=== PATIENT | female | born 1970 | race Caucasian/White ===

== ENCOUNTER 2019-07-07 15:42 | Inpatient (IN) ==
[2019-07-07] MEDS ORDERED: ONDANSETRON INJ 2 MG/ML 2 ML VIAL IV STA (16:25)
[2019-07-07] MEDS ORDERED: MoRPHine SULFATE 4 MG/ML 1 ML CARP\\VIAL IV STA (16:25)
[2019-07-07] MEDS ORDERED: SODIUM CHLORIDE 0.9% 1000ML 1,000 ML IV ONE (16:25)
--- NOTE | 2019-07-07 16:48 | Emergency Department Note ---
History of Present Illness General Chief complaint: Kidney Stone Stated complaint: KIDNEY STONE History of Present Illness Maximum Pain Intensity: 4 This patient is a 49-year-old female who presents ambulatory to the emergency department for evaluation of left flank pain that started a few days ago. The pain is sharp, stabbing in nature. Worse with movement. She denies any dysuria or hematuria. No nausea or vomiting. No fever. The patient was seen at [facility] earlier today. A CAT scan was performed. She was diagnosed with an 8 mm kidney stone. She was given follow-up with a urologist in 3 days from now. The patient has been taking ketorolac, which temporarily helps with her symptoms. Home Medications Home Medications Medication Instructions Recorded Confirmed Type Abena (28) 1 tab PO DAILY 07/07/19 07/09/19 History acetaminophen [Tylenol Extra 1,000 mg PO TID #30 tab 07/09/19 Rx Strength] cephalexin [Keflex] 500 mg PO BID 7 Days #14 cap 07/09/19 Rx ondansetron 4 mg PO Q6H PRN #10 tab 07/09/19 Rx oxycodone 5 - 10 mg PO Q4H PRN #20 tab 07/09/19 Rx Allergies Allergy/AdvReac Type Severity Reaction Status Date / Time No Known Allergies Allergy Verified 07/10/19 11:08 Past Med/Surg History Medical History No pertinent past medical history [place] teeth extracted Surgical History S/P cystoscopy with ureteral stent placement Social History Preferred Language: Australian Communication Ability: Effective 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 Beliefs That Will Affect Care: None Current Living Situation: Spouse Other Information That Helps Us Care for You: No Feels Safe at Home: Yes Safety Concerns: Feels Safe At This Time Smoking Status: Never smoker Do You Dip or Chew Tobacco: No ; Second Hand Exposure: No ; Tobacco Cessation Education Requested by Patient: No Hx Alcohol Use: No Hx Substance Use: No Review of Systems A total of 10 systems reviewed and were otherwise negative Physical Exam Vital Signs Vital Signs - 24 hr 07/07/19 15:55 Temperature 36.7 C Temperature Source Oral Sepsis Recent Fever Within 48 Hours No Sepsis New/Unexplained Change in Mental Status No Sepsis Action Taken by Nursing No Action Required Pulse Rate 108 H Respiratory Rate 18 Respiratory Effort / Characteristics Non-Labored Spontaneous Respiratory Depth Normal Respiratory Pattern Regular Blood Pressure 147/87 H Blood Pressure Mean 107 Blood Pressure Position Sitting Pulse Oximetry 95 Oxygen Delivery Method Room Air Constitutional WD/WN, vitals as above Eyes EOM intact bilaterally ENMT external ear and nose normal, oropharynx normal Neck trachea midline Respiratory normal respiratory effort, lungs clear to auscultation Cardiovascular RRR, no murmur, no edema Gastrointestinal (Abdomen) Left-sided CVA tenderness noted. No guarding or rebound tenderness. Musculoskeletal no cyanosis or clubbing, extremities motor strength 5/5 Skin no rashes, warm and dry Neurologic Alert and oriented x3. No focal motor deficits. Psychiatric Acting appropriately Course Patient was seen and examined Vital signs including blood pressure were reviewed medications list was verified with patient Labs were obtained, and a saline lock was established The patient was ordered morphine, Zofran and fluids. Outpatient records were reviewed. The patient was reassessed and slightly more comfortable. We discussed the results. She voiced understanding. The case was discussed my supervising physician who is in agreement with my plan. She was ordered Rocephin IV. The case was discussed with the [facility] hospitalist group. They kindly agreed to evaluate the patient for further inpatient management. The patient was in agreement. Consultations Consultation #1: [facility] hospitalist group Administered Medications Discontinued Medications Acetaminophen (Tylenol) 1,000 mg PO TID [facility] Stop: 08/07/19 14:24 Last Admin: 07/09/19 12:33 Dose: 1,000 mg Documented by: [id number] Admin: 07/09/19 08:13 Dose: Not Given Documented by: [id number] Admin: 07/08/19 21:05 Dose: 1,000 mg Documented by: [id number] Admin: 07/08/19 14:56 Dose: 1,000 mg Documented by: [id number] Hydromorphone HCl (Dilaudid) 0.5 mg IV NOW STA Stop: 07/07/19 18:48 Last Admin: 07/07/19 18:53 Dose: 0.5 mg Documented by: [id number] Hydromorphone HCl (Dilaudid) 0.5 mg IV Q3H PRN PRN Reason: Severe Pain Stop: 07/21/19 23:44 Last Admin: 07/09/19 08:49 Dose: 0.5 mg Documented by: [id number] Admin: 07/09/19 04:14 Dose: 0.5 mg Documented by: [id number] Admin: 07/09/19 00:30 Dose: 0.5 mg Documented by: [id number] Admin: 07/08/19 21:01 Dose: 0.5 mg Documented by: [id number] Admin: 07/08/19 18:06 Dose: 0.5 mg Documented by: [id number] Admin: 07/08/19 12:45 Dose: 0.5 mg Documented by: [id number] Admin: 07/08/19 08:42 Dose: 0.5 mg Documented by: [id number] Admin: 07/08/19 03:56 Dose: 0.5 mg Documented by: [id number] Admin: 07/08/19 00:05 Dose: 0.5 mg Documented by: [id number] Sodium Chloride (Nss 1000ml) 1,000 mls @ 999 mls/hr IV .Q1H1M ONE Stop: 07/07/19 17:25 Last Infusion: 07/07/19 17:29 Dose: 0 mls/hr Documented by: [id number] Admin: 07/07/19 16:45 Dose: 999 mls/hr Documented by: [id number] Promethazine HCl (Phenergan) 25 mg in 51 mls @ 204 mls/hr IV NOW STA Stop: 07/07/19 17:52 Last Infusion: 07/07/19 18:32 Dose: 0 mls/hr Documented by: [id number] Admin: 07/07/19 17:57 Dose: 204 mls/hr Documented by: [id number] Ceftriaxone Sodium (Rocephin) 2,000 mg in 70 mls @ 140 mls/hr IV NOW STA Stop: 07/07/19 20:08 Last Infusion: 07/07/19 20:45 Dose: 0 mls/hr Documented by: [id number] Admin: 07/07/19 20:10 Dose: 140 mls/hr Documented by: [id number] Ceftriaxone Sodium 2,000 mg/ (Dextrose) 70 mls @ 100 mls/hr IV Q24H STEPHENIE; Protocol Stop: 07/16/19 20:41 Last Infusion: 07/08/19 22:17 Dose: 0 mls/hr Documented by: [id number] Admin: 07/08/19 21:15 Dose: 100 mls/hr Documented by: [id number] Sodium Chloride (Nss 1000ml) 1,000 mls @ 80 mls/hr IV .[id number] STEPHENIE Stop: 08/06/19 23:44 Last Infusion: 07/08/19 04:49 Dose: 0 mls/hr Documented by: [id number] Admin: 07/08/19 00:05 Dose: 80 mls/hr Documented by: [id number] Famotidine 20 mg/ Syringe 5 mls @ 2.5 mls/min IV Q12 STEPHENIE Stop: 08/06/19 23:44 Last Admin: 07/09/19 08:13 Dose: 2.5 mls/min Documented by: [id number] Admin: 07/08/19 21:15 Dose: 2.5 mls/min Documented by: [id number] Admin: 07/08/19 08:20 Dose: 2.5 mls/min Documented by: [id number] Admin: 07/08/19 00:12 Dose: 2.5 mls/min Documented by: [id number] Potassium Chloride/Sodium Chloride (Normal Saline W/20 Meq Kcl) 20 meq in 1,000 mls @ 100 mls/hr IV .Q10H STEPHENIE Stop: 08/07/19 04:29 Last Admin: 07/09/19 08:49 Dose: 100 mls/hr Documented by: [id number] Infusion: 07/09/19 08:49 Dose: 100 mls/hr Documented by: [id number] Admin: 07/08/19 23:19 Dose: 100 mls/hr Documented by: [id number] Infusion: 07/08/19 23:18 Dose: 100 mls/hr Documented by: [id number] Admin: 07/08/19 13:18 Dose: 100 mls/hr Documented by: [id number] Infusion: 07/08/19 13:18 Dose: 100 mls/hr Documented by: [id number] Admin: 07/08/19 04:48 Dose: 100 mls/hr Documented by: [id number] Miscellaneous (Order Awaiting Action) 1 ea N/A QS STEPHENIE Stop: 08/07/19 00:00 Last Admin: 07/08/19 16:24 Dose: Not Given Documented by: [id number] Admin: 07/08/19 07:22 Dose: Not Given Documented by: [id number] Admin: 07/08/19 00:12 Dose: Not Given Documented by: [id number] Morphine Sulfate (Morphine Sulfate) 4 mg IV NOW STA Stop: 07/07/19 16:26 Last Admin: 07/07/19 16:45 Dose: 4 mg Documented by: [id number] [place] ~ Non- Formulary Patient's Own Med 1 ea PO DAILY STEPHENIE Stop: 08/08/19 08:59 Last Admin: 07/09/19 08:13 Dose: Not Given Documented by: [id number] Ondansetron HCl (Zofran) 4 mg IV NOW STA Stop: 07/07/19 16:26 Last Admin: 07/07/19 16:45 Dose: 4 mg Documented by: [id number] Ondansetron HCl (Zofran) 4 mg IV Q6H PRN PRN Reason: Nausea Stop: 08/06/19 23:44 Last Admin: 07/09/19 04:16 Dose: 4 mg Documented by: [id number] Admin: 07/08/19 18:06 Dose: 4 mg Documented by: [id number] Admin: 07/08/19 12:47 Dose: 4 mg Documented by: [id number] Admin: 07/08/19 00:05 Dose: 4 mg Documented by: [id number] Ondansetron HCl (Zofran) 4 mg IV NOW STA Stop: 07/08/19 22:05 Last Admin: 07/08/19 22:16 Dose: 4 mg Documented by: [id number] Medical Decision Making Medical Records Attestation: I reviewed the patient's medical records. Home Medications Current Medication List: was personally reviewed by me Laboratory Data Attestation: I reviewed the patient's lab results. Result diagrams: 07/07/19 16:23 07/09/19 06:35 Lab Results 07/07/19 07/07/19 07/07/19 Range/Units 16:23 16:23 16:50 WBC 14.94 H (4.8-10.8) K/uL RBC 4.54 (4.2-5.4) M/uL Hgb 13.8 (12.0-16.0) g/dL Hct 39.3 (37-47) % MCV 86.6 (80-100) fL MCH 30.4 (25-34) pg MCHC 35.1 (32-36) g/dL RDW Std Deviation 43.0 (36.4-46.3) fL RDW Coeff of Mariann 13.5 (11.5-14.5) % Plt Count 310 (130-400) K/uL MPV 10.0 (7.4-10.4) fL Immature Gran % (Auto) 0.3 % Neut % (Auto) 82.4 % Lymph % (Auto) 11.3 % [place] % (Auto) 5.8 % Eos % (Auto) 0.1 % Baso % (Auto) 0.1 % Immature Gran # (Auto) 0.04 H (0.00-0.02) K/uL Neut # (Auto) 12.31 H (1.4-6.5) K/uL Lymph # (Auto) 1.69 (1.2-3.4) K/uL [place] # (Auto) 0.87 H (0.11-0.59) K/uL Eos # (Auto) 0.01 (0-0.5) K/uL Baso # (Auto) 0.02 (0-0.2) K/uL Sodium 140 (136-145) mmol/L Potassium 3.4 L (3.5-5.1) mmol/L Chloride 109 H (98-107) mmol/L Carbon Dioxide 24 (21-32) mmol/L Anion Gap 7.0 (3-11) BUN 18 (7-18) mg/dl Creatinine 1.05 (0.6-1.2) mg/dl Est Cr Clr Drug Dosing 76.1 ml/min Est GFR ( Amer) 71.7 Est GFR (Non-Af Amer) 61.9 BUN/Creatinine Ratio 16.9 (10-20) Glucose 141 H (70-99) mg/dl Calcium 9.3 (8.5-10.1) mg/dl Urine Color Dark Yellow Urine Appearance Turbid A (Clear) Urine pH 5.0 (4.5-7.5) Ur Specific [place] 1.026 (1.000-1.030) Urine Protein Negative (Negative) Urine Glucose (UA) Negative (Negative) Urine Ketones Trace H (Negative) Urine Blood 2+ H (Negative) Urine Nitrite Negative (Negative) Urine Bilirubin Negative (Negative) Urine Urobilinogen Negative (Negative) Ur Leukocyte Esterase 1+ H (Negative) Urine WBC (Auto) >30 H (0-5) /hpf Urine RBC (Auto) 5-10 H (0-4) /hpf U Hyaline Cast (Auto) 0 (0-5) /lpf U Epithel Cells (Auto) 20-30 H (0-5) /lpf Urine Bacteria (Auto) Negative (Negative) Urine Crystals Not Reportable Calcium Oxalate Crystal Present A (None Prsent) MDM Narrative Differential diagnosis: Ureteral stone, pyelonephritis, UTI, flank pain, muscular skeletal pain, among others This patient is a 49-year-old female presents the emergency department with flank pain. On exam, she was significantly uncomfortable. She was however not toxic in appearance. Afebrile. I reviewed her outpatient records. She has a very large proximal stone. Unfortunately, I cannot get the patient comfortable. The rest of her labs show a contaminated urine, however possible UTI. White count is 14,000. Renal function intact. Due to the urine and white count, we opted to catheter the patient with 1 dose of antibiotics. She will be evaluated by the hospitalist for possible inpatient management. Impression & Plan Calculus, ureteral Discharge Plan Visit Data *Final* Discharge Date/Time: 07/07/19 23:01 Chief Complaint: Kidney Stone Stated Complaint: KIDNEY STONE ED Provider: Rian Leach ED Midlevel Provider: Angela Flores Discharge Problem: Calculus, ureteral Patient Disposition: Admitted As Inpatient Condition: Fair Discharge Instructions Interventions: ED Discharge Assessment Last Done: 07/07/19 23:01
[2019-07-07 17:05] LABS: Basophils # (auto) 0.02 K/uL (0-0.2); Basophils % (auto) 0.1 %; Eosinophils # (auto) 0.01 K/uL (0-0.5); Eosinophils % (auto) 0.1 %; Hematocrit (blood only) 39.3 % (37-47); Hemoglobin 13.8 g/dL (12.0-16.0); Immature Granulocytes # (auto) 0.04 K/uL (0.00-0.02); Immature Granulocytes % (auto) 0.3 %; Lymphocytes # (auto) 1.69 K/uL (1.2-3.4); Lymphocytes % (auto) 11.3 %; Mean Corpuscular Hemoglobin 30.4 pg (25-34); Mean Corpuscular Hgb Conc 35.1 g/dL (32-36); Mean Corpuscular Volume 86.6 fL (80-100); Monocytes # (auto) 0.87 K/uL (0.11-0.59); Monocytes % (auto) 5.8 %; Neutrophils # (auto) 12.31 K/uL (1.4-6.5); Neutrophils % (auto) 82.4 %; Platelet Count 310 K/uL (130-400); RDW Coefficient of Variation 13.5 % (11.5-14.5); Red Blood Count 4.54 M/uL (4.2-5.4); White Blood Count 14.94 K/uL (4.8-10.8)
[2019-07-07 17:20] LABS: BUN Creatinine Ratio 16.9 (10-20); Calcium 9.3 mg/dl (8.5-10.1); Creatinine Clr Calc Pharmacy 76.1 ml/min; Est GFR (African American) 71.7; Est GFR (Non-African American) 61.9; Potassium 3.4 mmol/L (3.5-5.1)
[2019-07-07 17:21] LABS: Appearance Urine Turbid (Clear); Bacteria Urine Automated Negative (Negative); Bilirubin Urine Negative (Negative); Blood Urine 2+ (Negative); Color Urine Dark Yellow; Epithelial Cell Urine Auto 20-30 /lpf (0-5); Glucose Urine UA Negative (Negative); Ketones Urine Trace (Negative); Leukocyte Esterase Urine 1+ (Negative); Nitrite Urine Negative (Negative); Protein Urine Negative (Negative); Specific Gravity Urine 1.026 (1.000-1.030); Urobilinogen Urine Negative (Negative); WBC Urine Automated >30 /hpf (0-5)
[2019-07-07 17:37] LABS: Calcium Oxalate Crystals Urine Present (None Prsent); Cast Urine Automated 0 /lpf (0-5)
[2019-07-07] MEDS ORDERED: PROMETHAZINE 25 MG/51 ML BAG IV STA (17:38)
[2019-07-07] MEDS ORDERED: HYDROmorphone INJ 0.5 MG/0.5 ML SYR IV STA (18:47)
[2019-07-07] MEDS ORDERED: cefTRIAXone SODIUM 2,000 MG/70 ML BAG IV STA (19:39)
[2019-07-07] MEDS ORDERED: SODIUM CHLORIDE 0.9% 1000ML 1,000 ML IV SCH (23:45)
[2019-07-07] MEDS ORDERED: ACETAMINOPHEN 1,000 MG/100 ML VIAL IV PRN (23:45)
[2019-07-08] MEDS: ONDANSETRON INJ 2 MG/ML 2 ML VIAL IV PRN ×3 (00:05→18:06)
[2019-07-08] MEDS: HYDROmorphone INJ 0.5 MG/0.5 ML SYR IV PRN ×6 (00:05→21:01)
[2019-07-08] MEDS: FAMOTIDINE 20 MG in SYRINGE 3 ML IV SCH ×3 (00:12→21:15)
[2019-07-08] MEDS: BCP'S~ORDER AWAITING ACTION SCH ×3 (00:12→16:24)
--- NOTE | 2019-07-08 04:25 | History & Physical Report ---
Date of Service July 08, 2019 The patient was seen and examined on 07/07/2019 Assessment & Plan (1) Left ureteral stone: Left ureteral stone, 8 mm in diameter- NPO Urine culture and sensitivity. Ceftriaxone 2 g IV daily. Famotidine 20 mg IV every 12 hours. NSS + KCl 20 mEq at 100 mils per hour. Acetaminophen 1 g IV every 8 hours PRN mild pain or temperature Dilaudid 0.5 mg IV every 3 hours as needed severe pain Zofran 4 mg IV every 6 hours as needed. Consult urology Present on Admission?: Yes (2) Bladder spasm: Resume oxybutynin patient is no longer n.p.o. Present on Admission?: Yes (3) Insomnia: Resume melatonin when patient is no longer n.p.o. Present on Admission?: Yes (4) Uses contraception: Takes OCPs daily Present on Admission?: Yes History of Present Illness Chief Complaint: The patient presents to the emergency department with complaint of sharp, stabbing left flank pain that began a few days ago Primary Care Provider: Vic Ornelas The patient is a 49-year-old female with a past medical history including insomnia, urinary bladder spasm, arthralgias, and on BCPs, who presents to the emergency department with a few days of sharp stabbing left flank pain, that worsens with movement. She had been seen at [facility] emergency department earlier in the day, and had a CT scan performed which showed an 8 mm left ureteral kidney stone. She has been given a follow-up appointment with urologist in 3 days, however, her pain was not being managed by ketorolac or Vicodin, and she presented to the [facility] ED for further assessment. 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 Beliefs That Will Affect Care: None Current Living Situation: Spouse Other Information That Helps Us Care for You: No Feels Safe at Home: Yes Safety Concerns: Feels Safe At This Time Smoking Status: Never smoker Do You Dip or Chew Tobacco: No ; Second Hand Exposure: No ; Hx Alcohol Use: No Hx Substance Use: No Review of Systems Review of Systems: The patient denies chest pain, palpitations, shortness of breath, dyspnea on exertion, cough, lower extremity swelling, sore throat, fevers, chills, sweats, vomiting, diarrhea, constipation, Blood in urine or stool, dysuria, urinary frequency or urgency, lightheadedness, dizziness, headache, memory loss, loss of consciousness, rash, abnormal bruising or bleeding, imbalance, focal weakness, numbness or tingling in arms or legs, or night sweats. The review of systems is otherwise negative other than for that already noted above, and at least 10 systems have been reviewed. Physical Exam Physical Exam: The patient is awake, alert and oriented 3, well developed and well nourished, normocephalic and atraumatic, lying in bed and in no acute distress. HEENT--PERRL, EOMI, mucous membranes and oropharynx normal. Neck--No JVD. No bruits. Thyroid normal, trachea midline, no adenopathy. Heart--normal S1 and S2. No murmurs, rubs or gallops. Lungs--clear bilaterally, no respiratory distress, no accessory muscle use. Abdomen--normal bowel sounds and soft. Tender left side and flank. Nondistended. Extremities--no cyanosis or clubbing. No edema. Dermatologic--normal skin turgor, normal color, no abnormal lymph nodes, no rash. Neurologic--cranial nerves II through XII grossly intact. Rheumatologic--normal range of motion. Psychiatric--normal affect. Results & Data Vital Signs (Past 12 Hours) Vital Signs Temp Pulse Resp BP Pulse Ox 07/07/19 23:49 98.4 F 87 18 157/86 H 96 07/07/19 22:56 81 15 129/89 94 07/07/19 20:35 81 16 130/65 94 07/07/19 19:00 81 15 144/85 H 93 07/07/19 17:58 98.8 F 97 H 19 130/78 95 07/07/19 16:55 99 Laboratory Results Laboratory Results WBC 14.94 K/uL (4.8-10.8) H 07/07/19 16:23 RBC 4.54 M/uL (4.2-5.4) 07/07/19 16:23 Hgb 13.8 g/dL (12.0-16.0) 07/07/19 16:23 Hct 39.3 % (37-47) 07/07/19 16:23 MCV 86.6 fL (80-100) 07/07/19 16:23 MCH 30.4 pg (25-34) 07/07/19 16:23 MCHC 35.1 g/dL (32-36) 07/07/19 16:23 RDW Std Deviation 43.0 fL (36.4-46.3) 07/07/19 16:23 RDW Coeff of Mariann 13.5 % (11.5-14.5) 07/07/19 16:23 Plt Count 310 K/uL (130-400) 07/07/19 16:23 MPV 10.0 fL (7.4-10.4) 07/07/19 16:23 Immature Gran % (Auto) 0.3 % 07/07/19 16:23 Neut % (Auto) 82.4 % 07/07/19 16:23 Lymph % (Auto) 11.3 % 07/07/19 16:23 [place] % (Auto) 5.8 % 07/07/19 16:23 Eos % (Auto) 0.1 % 07/07/19 16:23 Baso % (Auto) 0.1 % 07/07/19 16:23 Immature Gran # (Auto) 0.04 K/uL (0.00-0.02) H 07/07/19 16:23 Neut # (Auto) 12.31 K/uL (1.4-6.5) H 07/07/19 16:23 Lymph # (Auto) 1.69 K/uL (1.2-3.4) 07/07/19 16:23 [place] # (Auto) 0.87 K/uL (0.11-0.59) H 07/07/19 16:23 Eos # (Auto) 0.01 K/uL (0-0.5) 07/07/19 16:23 Baso # (Auto) 0.02 K/uL (0-0.2) 07/07/19 16:23 Sodium 140 mmol/L (136-145) 07/07/19 16:23 Potassium 3.4 mmol/L (3.5-5.1) L 07/07/19 16:23 Chloride 109 mmol/L (98-107) H 07/07/19 16:23 Carbon Dioxide 24 mmol/L (21-32) 07/07/19 16:23 Anion Gap 7.0 (3-11) 07/07/19 16:23 BUN 18 mg/dl (7-18) 07/07/19 16:23 Creatinine 1.05 mg/dl (0.6-1.2) 07/07/19 16:23 Est Cr Clr Drug Dosing 76.1 ml/min 07/07/19 16:23 Est GFR ( Amer) 71.7 07/07/19 16:23 Est GFR (Non-Af Amer) 61.9 07/07/19 16:23 BUN/Creatinine Ratio 16.9 (10-20) 07/07/19 16:23 Glucose 141 mg/dl (70-99) H 07/07/19 16:23 Calcium 9.3 mg/dl (8.5-10.1) 07/07/19 16:23 Urine Color Dark Yellow 07/07/19 16:50 Urine Appearance Turbid (Clear) A 07/07/19 16:50 Urine pH 5.0 (4.5-7.5) 07/07/19 16:50 Ur Specific [place] 1.026 (1.000-1.030) 07/07/19 16:50 Urine Protein Negative (Negative) 07/07/19 16:50 Urine Glucose (UA) Negative (Negative) 07/07/19 16:50 Urine Ketones Trace (Negative) H 07/07/19 16:50 Urine Blood 2+ (Negative) H 07/07/19 16:50 Urine Nitrite Negative (Negative) 07/07/19 16:50 Urine Bilirubin Negative (Negative) 07/07/19 16:50 Urine Urobilinogen Negative (Negative) 07/07/19 16:50 Ur Leukocyte Esterase 1+ (Negative) H 07/07/19 16:50 Urine WBC (Auto) >30 /hpf (0-5) H 07/07/19 16:50 Urine RBC (Auto) 5-10 /hpf (0-4) H 07/07/19 16:50 U Hyaline Cast (Auto) 0 /lpf (0-5) 07/07/19 16:50 U Epithel Cells (Auto) 20-30 /lpf (0-5) H 07/07/19 16:50 Urine Bacteria (Auto) Negative (Negative) 07/07/19 16:50 Urine Crystals Not Reportable 07/07/19 16:50 Calcium Oxalate Crystal Present (None Prsent) A 07/07/19 16:50 Code Status & VTE Plan Code Status Full code VTE Prophylaxis Plan VTE Prophylaxis will be ordered: Yes PG Care Time/CCT Total # of Minutes Spent Total Time Spent with Patient: Total time spent is greater than 50% in coordination of care (as documented) at patient's floor/unit and/or counseling patient:
[2019-07-08] MEDS: NSS + 20MEQ KCL 20 MEQ/1,000 ML BAG IV SCH ×3 (04:48→23:19)
--- NOTE | 2019-07-08 09:18 | XRay Report ---
KUB CLINICAL HISTORY: Ureteral stone. COMPARISON STUDY: CT of the abdomen and pelvis December 18, 2012. KUB December 25, 2012. FINDINGS: A few suspected left renal calculi measure up to 6 mm. Pelvic calcifications are unchanged. These represent phleboliths. No ureteral calculi are identified. There is no evidence for a bowel ob struction. Bubbly foci of gas within the left upper quadrant are unchanged since prior exams. This garza ggests pneumatosis cystoides intestinalis. Right renal shadow is partially obscured by stool. IMPRESSION: 1. Left-sided nephrolithiasis. Right renal shadow partially obscured by stool. 2. No ureteral calculi identified. Electronically signed by: Abimael Johnson M.D. 07/08/2019 9:17 AM
[2019-07-08 10:12] LABS: BUN Creatinine Ratio 14.8 (10-20); Calcium 9.2 mg/dl (8.5-10.1); Creatinine Clr Calc Pharmacy 66.1 ml/min; Est GFR (African American) 60.4; Est GFR (Non-African American) 52.1; Potassium 3.7 mmol/L (3.5-5.1)
[2019-07-08 10:15] LABS: Estimated Average Glucose 126 mg/dl
--- NOTE | 2019-07-08 11:46 | Urology Consultation ---
Date of Consultation July 08, 2019 Assessment & Plan (1) Left ureteral stone: 8mm left ureteral stone, resulting renal colic. Stone not visible on KUB this AM. Will need to obtain CT images to confirm. Discussed options with patient, she strongly desires stone treatment as soon as possible due to pain and nausea. Feeling okay today with supportive medication. She is agreeable to continued observation today, NPO after midnight with the possibility of laser lithotripsy, stent placement tomorrow. If patient declines or develops a fever, please contact our service for urgent stent placement. Will continue to follow. History of Present Illness Attending Physician: Peter Castle History of Present Illness 49 YO female with ureteral stone, renal colic. Patient reports that she has spontaneously passed several stones in her lifetime. Has seen urologists in the region who have since retired. Has required surgical stone treatment once with stent placement, reports stent was very uncomfortable. Most recently, reports development of sharp left flank pain yesterday. She reported to [place] ER where CT scan (not available for me to review) reported 8mm ureteral stone. Patient was offered appointment at our outpatient clinic tomorrow, however reported to [facility] ER last night due to uncontrolled pain and vomiting. This morning is seen with spouse at bedside. Reports ongoing left flank pain. Somewhat controlled with supportive medication. No fevers/chills. Is experiencing continued nausea, no vomiting. Voiding spontaneously without pain or bother. No gross hematuria. 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 Physical Exam Physical Exam: NAD. +glasses. Resp effort normal. No JVD. Abd nondistended. A&Ox3, appropriate affect. Results & Data Vital Signs (Past 12 Hours) Vital Signs Temp Pulse Resp BP Pulse Ox 07/08/19 07:33 37.2 C 81 18 137/82 93 07/07/19 23:49 36.9 C 87 18 157/86 H 96 PG Care Time/CCT Total # of Minutes Spent Total Time Spent with Patient: Total time spent is greater than 50% in coordination of care (as documented) at patient's floor/unit and/or counseling patient:
--- NOTE | 2019-07-08 14:22 | Hospitalist Progress Note ---
Date of Service July 08, 2019 Assessment & Plan (1) Left ureteral stone: 8mm left-sided ureteral stone by report. cont pain control, IVF, anti-emetics. allow full liquid diet today then NPO after MN. appreciate urology consultation - laser litho, stent placement tomorrow by their team. (2) Prediabetes: new diagnosis. a1c 6%. pt made aware of dx. diet control. 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 (3) Obesity: with pre-DM needs to have weight loss efforts (4) DVT prophylaxis: SCDS; no chemical means in light of upcoming urological intervention bmp in am Subjective still with left back/flank pain, nausea, and lack of appetite. told her about hb a1c and that she has pre-DM -- voiced understanding. no vomiting. has had 7 prior stones with 1 requiring stent placement. Review of Systems Constitutional: no fever and no chills Respiratory: no cough and no dyspnea Cardiovascular: no chest pain Gastrointestinal: + abdominal pain and + nausea; no vomiting Physical Exam Constitutional: + obese; no acute distress and no altered mental status ENMT: external ear and nose normal, oropharynx normal Respiratory: normal respiratory effort, lungs clear to auscultation Cardiovascular: Rate/Rhythm: regular rate and regular rhythm Heart Sounds: normal S1 and normal S2; no murmur Vessels: posterior tibial pulses present and dorsalis pedis pulses present; no JVD Extremities: no edema Gastrointestinal (Abdomen): normal bowel sounds, soft, nontender, no hepatosplenomegaly Musculoskeletal: mild left flank pain to palpation Psychiatric: A+Ox3, euthymic affect Results & Data Vital Signs (Past 12 Hours) Vital Signs Temp Pulse Resp BP Pulse Ox 07/08/19 07:33 37.2 C 81 18 137/82 93 Laboratory Results Laboratory Results - last 24 hr 07/07/19 07/07/19 07/07/19 16:23 16:23 16:50 WBC 14.94 H RBC 4.54 Hgb 13.8 Hct 39.3 MCV 86.6 MCH 30.4 MCHC 35.1 RDW Std Deviation 43.0 RDW Coeff of Mariann 13.5 Plt Count 310 MPV 10.0 Immature Gran % (Auto) 0.3 Neut % (Auto) 82.4 Lymph % (Auto) 11.3 Swift % (Auto) 5.8 Eos % (Auto) 0.1 Baso % (Auto) 0.1 Immature Gran # (Auto) 0.04 H Neut # (Auto) 12.31 H Lymph # (Auto) 1.69 Swift # (Auto) 0.87 H Eos # (Auto) 0.01 Baso # (Auto) 0.02 Sodium 140 Potassium 3.4 L Chloride 109 H Carbon Dioxide 24 Anion Gap 7.0 BUN 18 Creatinine 1.05 Est Cr Clr Drug Dosing 76.1 Est GFR ( Amer) 71.7 Est GFR (Non-Af Amer) 61.9 BUN/Creatinine Ratio 16.9 Glucose 141 H Estimat Average Glucose Hemoglobin A1c Calcium 9.3 Urine Color Dark Yellow Urine Appearance Turbid A Urine pH 5.0 Ur Specific [place] 1.026 Urine Protein Negative Urine Glucose (UA) Negative Urine Ketones Trace H Urine Blood 2+ H Urine Nitrite Negative Urine Bilirubin Negative Urine Urobilinogen Negative Ur Leukocyte Esterase 1+ H Urine WBC (Auto) >30 H Urine RBC (Auto) 5-10 H U Hyaline Cast (Auto) 0 U Epithel Cells (Auto) 20-30 H Urine Bacteria (Auto) Negative Urine Crystals Not Reportable Calcium Oxalate Crystal Present A 07/08/19 07/08/19 09:38 09:38 WBC RBC Hgb Hct MCV MCH MCHC RDW Std Deviation RDW Coeff of Mariann Plt Count MPV Immature Gran % (Auto) Neut % (Auto) Lymph % (Auto) Swift % (Auto) Eos % (Auto) Baso % (Auto) Immature Gran # (Auto) Neut # (Auto) Lymph # (Auto) Swift # (Auto) Eos # (Auto) Baso # (Auto) Sodium 141 Potassium 3.7 Chloride 112 H Carbon Dioxide 23 Anion Gap 6.0 BUN 18 Creatinine 1.21 H Est Cr Clr Drug Dosing 66.1 Est GFR ( Amer) 60.4 Est GFR (Non-Af Amer) 52.1 BUN/Creatinine Ratio 14.8 Glucose 100 H Estimat Average Glucose 126 Hemoglobin A1c 6.0 H Calcium 9.2 Urine Color Urine Appearance Urine pH Ur Specific [place] Urine Protein Urine Glucose (UA) Urine Ketones Urine Blood Urine Nitrite Urine Bilirubin Urine Urobilinogen Ur Leukocyte Esterase Urine WBC (Auto) Urine RBC (Auto) U Hyaline Cast (Auto) U Epithel Cells (Auto) Urine Bacteria (Auto) Urine Crystals Calcium Oxalate Crystal PG Care Time/CCT Total # of Minutes Spent Total Time Spent with Patient: Total time spent is greater than 50% in coordination of care (as documented) at patient's floor/unit and/or counseling patient: (1) Obesity Obesity type: unspecified obesity type Obesity classification: adult class 2 (BMI 35 - 39.9) Serious obesity comorbidity presence: without serious comorbidity Body mass index: BMI 37.0-37.9 Qualified Code(s): E66.9 - Obesity, unspecified; Z68.37 - Body mass index (BMI) 37.0-37.9, adult
[2019-07-08] MEDS: ACETAMINOPHEN 500 MG TAB PO SCH ×2 (14:56→21:05)
[2019-07-08] MEDS ORDERED: cefTRIAXone SODIUM 2,000 MG in DEXTROSE 5% 50 ML IV SCH (20:00)
[2019-07-08] MEDS ORDERED: ONDANSETRON INJ 2 MG/ML 2 ML VIAL IV STA (22:04)
[2019-07-09] MEDS: HYDROmorphone INJ 0.5 MG/0.5 ML SYR IV PRN ×3 (00:30→08:49)
[2019-07-09] MEDS: ONDANSETRON INJ 2 MG/ML 2 ML VIAL IV PRN (04:16)
[2019-07-09 07:21] LABS: BUN Creatinine Ratio 12.4 (10-20); Creatinine Clr Calc Pharmacy 67.7 ml/min; Est GFR (African American) 62.3; Est GFR (Non-African American) 53.7
[2019-07-09] MEDS: FAMOTIDINE 20 MG in SYRINGE 3 ML IV SCH (08:13)
[2019-07-09] MEDS: ACETAMINOPHEN 500 MG TAB PO SCH ×2 (08:13→12:33)
[2019-07-09] MEDS: NSS + 20MEQ KCL 20 MEQ/1,000 ML BAG IV SCH (08:49)
[2019-07-09] MEDS ORDERED: CRYSELLE PO SCH (09:00)
--- NOTE | 2019-07-09 09:04 | XRay Report ---
XR chest 1V portable CLINICAL HISTORY: Preoperative chest COMPARISON STUDY: No previous studies for comparison. FINDINGS: The heart is normal in size. There is no failure. There is no lobar consolidation. There ar e no pleural effusions. There are subsegmental atelectatic changes at the left lung base.[ IMPRESSION: Left basilar subsegmental atelectasis. Otherwise unremarkable AP portable chest. Electronically signed by: Jered Ramirez M.D. 07/09/2019 9:03 AM
--- NOTE | 2019-07-09 09:09 | Urology Progress Note ---
Date of Service July 09, 2019 Assessment & Plan (1) Left ureteral stone: Left ureteral stone. Questionable visibility on KUB. Given patient's negative experience with stent in the past, would like to avoid. Will plan to repeat KUB this AM to assess for better visibility. Will also coordinate CXR, EKG for outpatient preop clearance. Patient would like to go home today with plans for outpatient surgical intervention tomorrow. She understands to report to our outpatient URO office at [address] [facility] immediately after discharge to sign paperwork. Procedure details, risks, alternatives discussed for both ESWL and left laser lithotripsy. Will tentatively plan for ESWL, if no visibility of stone on KUB will need laser lithotripsy. Subjective 49 YO female with left ureteral stone, renal colic. Left flank pain is persisting this morning. No fevers/chills. No nausea/vomiting. Voiding spontaneously. Review of Systems Review of Systems: Per HPI. Physical Exam Physical Exam: WN/WD NAD. Resp effort normal. No JVD. Abd nondistended. A&Ox3, appropriate affect. Results & Data Vital Signs (Past 12 Hours) Vital Signs Temp Pulse Pulse Resp BP Pulse Ox 07/09/19 08:14 36.9 C 78 18 140/90 95 07/08/19 23:22 37.0 C 71 16 118/77 92 PG Care Time/CCT Total # of Minutes Spent Total Time Spent with Patient: Total time spent is greater than 50% in coordination of care (as documented) at patient's floor/unit and/or counseling patient:
--- NOTE | 2019-07-09 10:00 | XRay Report ---
KUB HISTORY: ureteral stone COMPARISON: KUB 07/08/2019. Abdomen and pelvis CT 07/07/2019. FINDINGS: The bowel gas pattern is unremarkable. There are no dilated loops of small bowel to suggest an obstruction. The renal shadows are partially obscured by overlying bowel gas. There is 9 mm calc ification adjacent to the left L2 transverse process. This likely corresponds to the patient's known left ureteropelvic junction stone. Left-sided nephrolithiasis, unchanged.. Stable calcifications in t he deep pelvis consistent with phleboliths. No pneumoperitoneum or pneumatosis. IMPRESSION: 1. 9 mm stone within the expected location of the left ureteropelvic junction. This is unchanged in p osition. 2. Left-sided nephrolithiasis. Electronically signed by: Obinna Riojas M.D. 07/09/2019 9:59 AM
--- NOTE | 2019-07-09 10:02 | Communication Note ---
Date of Service: July 09, 2019 Repeat KUB today reveals good visibility of Right UPJ stone. Will plan for ESWL this Saturday. Please see progress note from today for details regarding plan of care.
--- NOTE | 2019-07-09 11:58 | Discharge Summary ---
Date of Service date of admission - July 08, 2019 date of discharge - July 09, 2019 Admission HPI Per Admitting Provider The patient is a 49-year-old female with a past medical history including insomnia, urinary bladder spasm, arthralgias, and prior kidney stones who presents to the emergency department with a few days of sharp stabbing left flank pain that worsens with movement. She had been seen at [facility] emergency department earlier in the day, and had a CT scan performed which showed an 8 mm left ureteral kidney stone. She had been given a follow-up appointment with urologist in 3 days, however, her pain was not controlled by ketorolac or Vicodin; thus she presented to the [facility] ED for further assessment. Principal Diagnosis left-sided obstructing ureteral kidney stone Discharge Exam Constitutional + obese; no acute distress and no altered mental status ENMT external ear and nose normal, oropharynx normal Respiratory normal respiratory effort, lungs clear to auscultation Cardiovascular Rate/Rhythm: regular rate and regular rhythm Heart Sounds: normal S1 and normal S2; no murmur Vessels: posterior tibial pulses present and dorsalis pedis pulses present; no JVD Extremities: no edema Gastrointestinal (Abdomen) normal bowel sounds, soft, nontender, no hepatosplenomegaly minimal flank tenderness LEFT Psychiatric A+Ox3, euthymic affect Discharge Data Allergies Allergy/AdvReac Type Severity Reaction Status Date / Time No Known Allergies Allergy Verified 07/10/19 11:08 Consultations [facility] - Katerin CORONADO crtt for pre-diabetes counseling Procedures Performed KUB xray: IMPRESSION: 1. 9 mm stone within the expected location of the left ureteropelvic junction. This is unchanged in position. 2. Left-sided nephrolithiasis. Hospital Course (1) Left ureteral stone: 8mm left-sided proximal ureteral stone with mild hydronephrosis. Following admission she was given copious IV hydration, placed on antibiotics, and given IV pain control. She was seen by urology and initially patient was desiring surgical intervention. On hospital day #2, however, patient decided to hold off on cystoscopy with stent placement. She reported a prior negative experience with stent placement. Since her pain was largely controlled, vitals were stable and afebrile, and in light of her prior experiences a decision was made with the urology team to def er on cystoscopy. Instead, she was allowed to discharge home and she will follow-up in 24 hours -- as an outpatient -- to undergo lithotripsy. Following discharge the patient was to report directly to the urology clinic in [place] to arrange the lithotripsy. The following were advised at discharge - * oxycodone prn pain * copious hydration * tylenol 1gm TID * zofran prn * keflex BID x 7 days for probable UTI (culture still pending) * light activities until the lithotripsy was complete (2) Prediabetes: new diagnosis. a1c 6%. pt made aware of diagnosis. diet control for now. crtt was consulted for counseling. (3) Obesity: with pre-DM needs to have weight loss efforts BMI 37 (4) UTI (urinary tract infection): suspected culture still pending keflex 500mg BID x 7 days at discharge Total Time Total Time Spent Total Time Spent (In Minutes): 35 Total Time Includes: Examination of the Patient, Discharge Planning and Me dication Reconciliation Discharge Plan Discharge Items Patient Disposition: Home - Self-Care Reason For Visit: left-sided kidney stone Discharge Diagnosis: left-sided kidney stone pre-diabetes -- newly diagnosed Activity: As commented below Activity Comment: no strenuous activity or driving until stone is gone & off narcotics Exercise/Sports: Wait until after follow-up appointment Driving/Machine Use: no driving until stone has been removed and off narcotic pain killers Non-emergency contact: Primary Care Provider and Urologist Call non-emergency contact if: you have any medication questions, your symptoms worsen, your pain is not controlled, your pain is worsening and you have a fever Follow-up/Referrals: Vic Ornelas [Primary Care Provider] - Katerin Hoyos CRNP [Nurse Practitioner] - (report to [facility] TODAY to coordinate lithotripsy) Diet: Carb Consistent or DM2 Addtl Attending Provider Instructions: You were treated for a left-sided kidney stone with IV fluids, pain medication, nausea medication, etc. You were seen by the [facility] team. They plan to perform lithotripsy on 07/10/2019, to break up the 9mm left- sided kidney stone. Your vital signs and labs were stable while here. We also found evidence of "pre-diabetes". Please follow-up with your family d octor for this. Recommendations - 1. no heavy exertional activity today or driving. 2. tylenol 1000mg three times daily for pain relief; again NO MORE than 3000mg in 24 hours 3. discontinue aspirin, motrin, ibuprofen, naprosyn, alleve use 4. oxycodone 5mg -- 1-2 tabs every 4 hours as needed for pain. oxycocone can impair your thinking (it is a narcotic pain killer) or make you sleepy. NO DRIVING and NO ALCOHOL while on narcotic pain killers. 5. the oxycodone can cause constipation. 6. constipation - * give yourself a dulcolax suppository x 1 today via your rectum * then start [id number] miralax +/- senakot for treatment of constipation 7. antibiotics - cephalexin 500mg twice daily for 7 days; know that antibiotics can interfere with effectiveness of control pills. YOU MUST use a second form of control if you are sexually active until your next menstrual cycle. 8. report to [facility] upon discharge to arrange the lithotripsy Report back to [facility] ER if -- * fevers over 100.5 degrees * shaking chills * severe back, flank or abdominal pain that is not controlled by your pain medication * you have large amounts of blood in your urine * uncontrolled nausea or vomiting * any other concerns Pending Studies at Discharge: No Stand-Alone Forms: My [facility], Opioid Pain Management, Smoking Cessation Medications and DC Order Prescriptions: New acetaminophen [Tylenol Extra Strength] 500 mg Tablet 1,000 mg PO TID Qty: 30 RF: 0 cephalexin [Keflex] 500 mg capsule 500 mg PO BID 7 Days Qty: 14 RF: 0 ondansetron 4 mg tablet,disintegrating 4 mg PO Q6H PRN (Reason: nausea and vomiting) Qty: 10 RF: 0 oxycodone 5 mg tablet 5 - 10 mg PO Q4H PRN (Reason: pain) Qty: 20 RF: 0 Continued Cryselle (28) 0.3-30 mg-mcg Tablet 1 tab PO DAILY RF: 0 Discontinued naproxen sodium [Aleve] 220 mg Tablet 220 mg PO BID RF: 0 Discharge Orders: Discharge Order (Routine); Ordered 07/09/19 Ordered By: Peter Boss/Other Patient Handouts: Prediabetes, Eating Out Tips Healthy, Eat Healthy Admission Data Admit Date/Time: 07/07/19 22:30 Attending Provider: Peter Castle Admit Provider: Pilo Watson Primary Care Provider: Vic Ornelas Other Providers: Pilo Watson ; Sushil Calabrese Other Interventions: Discharge Summary Assessment (RN) Last Done: 07/09/19 11:39 DC Date/Time DO NOT enter until pt leaves facility: 07/09/19 12:44
== END 2019-07-09 12:44 | disposition home or self-care (01) | DRG 690 ==
LOC: ED 15:42 → 3N 22:30 → SUATTDRO 22:30 → 3N 23:01

== ENCOUNTER 2024-07-30 11:25 | Inpatient (IN) ==
--- NOTE | 2024-07-30 12:07 | Emergency Department Note ---
Impression & Plan Sepsis, Dehydration, Nausea & vomiting ED Provider Note Provider: Rian Leach MD CHIEF COMPLAINT: Nausea vomiting, abdominal pain, diarrhea HISTORY OF PRESENT ILLNESS: Patient is a 54-year-old female past medical history significant for metastatic lung adenocarcinoma on Keytruda presenting here today referred from outpatient clinic. Patient has been sick over the past almost week. Seen initially and primary care at beginning of the week and started on some doxycycline. Has been having nausea and vomiting issues. Has been having intermittent fevers at home. Seen here yesterday and tested positive for entero-/rhinovirus. Was feeling bit better after some Zofran here but had Zofran at home and still having significant nausea symptoms and some nonbloody diarrhea. Diffuse abdominal pain reported. No significant shortness of breath reported however. Has noted a little bit of swelling in the hands and feet. No rashes reported. Saw primary care this morning given her tachycardia and pain complaints and here for further evaluation. Has had some liquid intake but no significant food intake. States not sure that the doxycycline has been staying down either. PAST MEDICAL HISTORY: As noted above MEDICATIONS: Reviewed home medications SOCIAL HISTORY: PHYSICAL EXAM: GENERAL: alert and oriented in no acute distress on stretcher, at bedside Head: normocephalic and atraumatic EYES: No injection, discharge or icterus. EOMI. NECK: Trachea midline. ENT: Mucous membranes pink and moist. LUNGS: Airway patent. No retractions. Breath sounds clear HEART: Regular tachycardic rate and rhythm. No chest wall tenderness ABDOMEN: Soft mild diffuse tenderness. No guarding. SKIN: Acyanotic, warm, dry, without rashes EXTREMITIES: Without swelling, tenderness or deformity NEUROLOGICAL: No focal deficits. No aphasia. No facial droop or slurred speech. Ambulatory. EK bpm sinus tachycardia. No PVC or PAC. No acute ST segment elevation or depression with QTc of 448. CONTINUOUS CARDIAC MONITORING: was ordered and showed a heart rate of bpm in sinus tachycardia Patient's laboratory studies and imaging reviewed. Differential includes Infection, sepsis, dehydration, metabolic abnormality, hypo/hyperglycemia, electrolyte disturbance, colitis, diverticulitis, pancreatitis, obstruction, volvulus, cholecystitis, appendicitis, anemia, hypoxia, cardiac sources, neurologic, as well as other pathologies. IMPRESSION/MEDICAL DECISION MAKING: Patient on Keytruda history of lung cancer here with predominantly GI related symptoms over the last several days. Has been on doxycycline recently unsure if this is contributing or not. Evaluate here today test positive for enterorhinovirus. Blood work reviewed. Not keeping much down at home referred from the office outpatient this morning. Patient is tachycardic upon arrival. Afebrile but borderline blood pressures. Not hypoxic denies significant shortness of breath. Some diffuse abdominal pain reported with some diarrhea nonbloody in nature. 2 L IV fluid ordered as she is meeting sepsis criteria. Compared to yesterday blood work does show evidence of increasing leukocytosis to 16 and an elevated lactate today of 3.1. Some Zofran given for nausea so she tolerated abdominal and chest CT to look for abnormality. Will exclude PE with a CT of the chest in addition to the abdominal CT. Again increasing leukocytosis 16 today. Not anemic. Normal platelet count. Procalcitonin elevated at 0.55 as well as again the additional lactate for she she is eating 130 mL/kg of ideal body weight for fluid resuscitation. Will empirically cover with cefepime for broad-spectrum coverage. Blood work today shows very mildly worsened hyponatremia of 132. Creatinine worsened today 1.3 question this is dehydrational given her decreased intake. Is having some low magnesium of 1.6 mildly again question losses. No CK elevation or troponin elevation. No evidence of significant transaminitis. Patient did vomit in CT. did receive some additional Reglan. CTA of the chest per radiology no obvious PE noted or consolidation. No change in the left apical mass from prior PET scan. CT abdomen pelvis without bowel obstruction or bowel wall thickening. Stable findings compared to July 02 with unchanged pneumatosis splenic flexure and hepatic steatosis. Blood pressure is improving with IV fluids here and she is feeling a little bit better. Although no obvious on percent clear source, will bring in for further care given the elevated infectious markers and findings of some dehydration. Patient and family updated at bedside. Agree with the plan to stay for further care. Hospitalist was contacted for admission and case discussed. DIAGNOSIS: Sepsis, dehydration, nausea and vomiting DISPOSITION: Hospitalist will evaluate Patient was agreeable with this plan. Past Med/Surg History Problem List (Updated 07/30/24 @ 13:51 by Obinna Murray PA-C) BRIGIDO (acute kidney injury) Lung cancer, primary, with metastasis from lung to other site Started chemo 08/07/21 Nausea & vomiting (Acute) Dehydration (Acute) Sepsis (Acute) Viral upper respiratory illness (Acute) COVID-19 (Acute) Metastatic adenocarcinoma (Chronic 07/11/21) Pneumatosis coli Lateral epicondylitis of elbow COVID-19 (Acute) Lung cancer Endometrial thickening on ultrasound Abnormal uterine bleeding (AUB) Bilateral kidney stones Fibroids Obese Cholelithiasis Obesity Medical History Endometrial polyp Lung cancer, primary, with metastasis from lung to other site Started chemo 08/07/21 Contact with and (suspected) exposure to covid-19 COVID positive family members exposure (07/2020) > personal symptoms at time of: Fatigue, sinus infection type symptoms, cough > was not tested/symptoms resolved Hx of pancreatitis Several years ago Kidney stone Hx Surgical History History of dilatation and curettage (08/2021) Hx laparoscopic cholecystectomy (07/11/21) Laparoscopic Cholecystectomy with Cholangiogram with Biopsy of the Omentum and Biopsy of Peritoneal Implant (07/11/21): Grade view 1, Cabezas #2, ETT 7.5 at [facility]. Patient reported dyspnea in recovery room post-operatively. She states improvement with incentive spirometry and possible oxygen supplementation. She states she was discharged home same day without issue. No mention of issues per anesthesia post-op progress note. Hx of colonoscopy Nausea and vomiting after administration of anesthetic agent mild PONV - patch "worked" History of lithotripsy x2 (12/2020, 01/2021) Left ESWL (01/27/21): LMA#4 at [facility] [place] (scope patch used) [place] teeth extracted S/P cystoscopy with ureteral stent placement Family History Grandmother (Maternal) Colorectal cancer Father Diabetes Mother Hypertension Brother Diabetes Grandmother (Paternal) Kidney malignancy Other No family history of adverse response to anesthesia Denies family history of Ovarian cancer Breast cancer Social History Smoking Status: Never smoker Tobacco Type: Cigarettes Second Hand Exposure: No; Do You Dip or Chew Tobacco: No; Hx Alcohol Use: Yes Alcohol type: wine Hx Substance Use: No Preferred Language: Faroese Communication Ability: Effective Visual Impairment: No Limitations Hearing Ability: Normal 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 Beliefs That Will Affect Care: None marital status: Current Living Situation: Spouse Current Living Situation Comment: [place] current occupational status: employed current occupation: [employer] How many Children do You have: 0 Other Information That Helps Us Care for You: No Feels Safe at Home: Yes Safety Concerns: Feels Safe At This Time Childhood Exposure to Second-Hand Smoke: No Diet: regular caffeine: Yes during the past year weight has: remained stable Dental Care, Regularly: Yes Assistive Devices: Glasses Allergies Allergies Allergy/AdvReac Type Severity Reaction Status Date / Time amoxicillin [From Augmentin] Allergy Severe Hives Unverified 07/22/24 13:40 clavulanic acid Allergy Severe Hives Unverified 07/22/24 13:40 [From Augmentin] codeine AdvReac Intermediate Eye Verified 07/22/24 13:40 problems (if in the sun) Home Meds Home Medications Medication Instructions Recorded Confirmed diphenhydramine HCl 50 mg capsule 50 mg PO HS 11/18/20 07/30/24 ([employer]) acetaminophen 500 mg capsule 1,000 mg PO Q6H PRN Pain 08/15/21 07/30/24 oxycodone 5 mg capsule 5 mg PO Q8H PRN Pain 08/15/21 07/30/24 pembrolizumab 50 mg intravenous 50 mg IV .[id number] 12/30/22 07/30/24 solution ascorbic acid (vitamin C) 250 mg 250 mg PO DAILY 01/07/24 07/30/24 tablet [id number] 5 mg-zeaxanth 1 cap PO DAILY 01/07/24 07/30/24 1 mg-bilberry 7.5 mg-herbal capsule (Macular Health Formula) zinc gluconate 30 mg tablet 30 mg PO DAILY 01/07/24 07/30/24 budesonide 90 mcg/actuation breath 2 inh inhalation BID PRN sob 07/29/24 07/30/24 activated powder inhaler (Pulmicort Flexhaler) doxycycline hyclate 100 mg tablet 100 mg PO BID 07/29/24 07/30/24 mometasone 100 mcg/actuation HFA 2 puff inhalation BID PRN sob 07/29/24 07/30/24 aerosol inhaler (Asmanex HFA) Previous Rx's Medication Instructions Recorded epinephrine 0.3 mg/0.3 mL 0.3 mg (0.3 mL) IM Q3H PRN 12/30/22 injection, auto-injector (EpiPen anaphylaxis #2 ea 2-Nando) ondansetron 4 mg disintegrating 4 mg PO Q6H PRN nausea and 01/17/23 tablet vomiting #14 tabs albuterol sulfate 90 mcg/actuation 2 puffs inhalation 6XD PRN 11/14/23 aerosol inhaler shortness of breath or wheezing #6.7 grams benzonatate 100 mg capsule 100 mg PO TID PRN cough #15 caps 11/14/23 ergocalciferol (vitamin D2) 1,250 1,250 mcg PO .weekly #14 caps 07/10/24 mcg (50,000 unit) capsule ondansetron 4 mg disintegrating 4 mg PO Q6H PRN nausea and 07/29/24 tablet vomiting #20 tabs Results & Data (ED) Vital Signs Vital Signs - 24 hr 07/30/24 11:29 07/30/24 11:49 07/30/24 11:57 Temperature 37.2 C 37.4 C Temperature Source Temporal Artery Scan Oral Pulse Rate 131 H 126 H Pulse Rate [Apical] 127 H Pulse Rate from SpO2 Sensor Respiratory Rate 18 16 Respiratory Effort / Characteristics Non-Labored Spontaneous Non-Labored Spontaneous Respiratory Depth Normal Normal Respiratory Pattern Regular Blood Pressure Blood Pressure [Right Arm] 95/72 L Blood Pressure Mean Blood Pressure Mean [Right Arm] 79 Blood Pressure Position [Right Arm] Pulse Oximetry 95 95 Oxygen Delivery Method Room Air Room Air Sepsis Recent Fever Within 48 Hours No Sepsis New/Unexplained Change in Mental Status N/A Sepsis Action Taken by Nursing No Action Required 07/30/24 11:57 07/30/24 12:01 07/30/24 12:01 Temperature Temperature Source Pulse Rate 126 H Pulse Rate [Apical] Pulse Rate from SpO2 Sensor 120 H Respiratory Rate 20 Respiratory Effort / Characteristics Respiratory Depth Respiratory Pattern Blood Pressure 96/70 L Blood Pressure [Right Arm] Blood Pressure Mean 78 94 94 Blood Pressure Mean [Right Arm] Blood Pressure Position [Right Arm] Pulse Oximetry 88 L Oxygen Delivery Method Sepsis Recent Fever Within 48 Hours Sepsis New/Unexplained Change in Mental Status Sepsis Action Taken by Nursing 07/30/24 12:03 07/30/24 12:15 07/30/24 12:20 Temperature Temperature Source Pulse Rate 127 H 118 H 103 H Pulse Rate [Apical] Pulse Rate from SpO2 Sensor 128 H Respiratory Rate 19 30 H 18 Respiratory Effort / Characteristics Respiratory Depth Respiratory Pattern Blood Pressure Blood Pressure [Right Arm] Blood Pressure Mean Blood Pressure Mean [Right Arm] Blood Pressure Position [Right Arm] Pulse Oximetry 93 96 Oxygen Delivery Method Room Air Sepsis Recent Fever Within 48 Hours Sepsis New/Unexplained Change in Mental Status Sepsis Action Taken by Nursing 07/30/24 12:21 07/30/24 12:21 07/30/24 12:21 Temperature Temperature Source Pulse Rate 101 H Pulse Rate [Apical] 115 H Pulse Rate from SpO2 Sensor 118 H Respiratory Rate 17 17 Respiratory Effort / Characteristics Non-Labored Respiratory Depth Normal Respiratory Pattern Regular Blood Pressure 88/76 L Blood Pressure [Right Arm] 88/76 L Blood Pressure Mean 85 Blood Pressure Mean [Right Arm] 80 Blood Pressure Position [Right Arm] Semi-fowlers Pulse Oximetry 98 98 Oxygen Delivery Method Room Air Sepsis Recent Fever Within 48 Hours Sepsis New/Unexplained Change in Mental Status Sepsis Action Taken by Nursing 07/30/24 12:21 07/30/24 12:47 07/30/24 12:47 Temperature Temperature Source Pulse Rate Pulse Rate [Apical] 111 H Pulse Rate from SpO2 Sensor Respiratory Rate 24 Respiratory Effort / Characteristics Non-Labored Spontaneous Respiratory Depth Normal Respiratory Pattern Blood Pressure 88/76 L 103/74 Blood Pressure [Right Arm] 103/74 Blood Pressure Mean 85 83 Blood Pressure Mean [Right Arm] 83 Blood Pressure Position [Right Arm] Pulse Oximetry 97 Oxygen Delivery Method Room Air Sepsis Recent Fever Within 48 Hours Sepsis New/Unexplained Change in Mental Status Sepsis Action Taken by Nursing 07/30/24 12:57 07/30/24 13:00 07/30/24 13:09 Temperature Temperature Source Pulse Rate 112 H 107 H Pulse Rate [Apical] Pulse Rate from SpO2 Sensor 112 H 106 H Respiratory Rate 20 18 Respiratory Effort / Characteristics Respiratory Depth Respiratory Pattern Blood Pressure 107/79 Blood Pressure [Right Arm] Blood Pressure Mean 94 Blood Pressure Mean [Right Arm] Blood Pressure Position [Right Arm] Pulse Oximetry 98 98 Oxygen Delivery Method Sepsis Recent Fever Within 48 Hours Sepsis New/Unexplained Change in Mental Status Sepsis Action Taken by Nursing 07/30/24 13:12 07/30/24 13:15 07/30/24 13:27 Temperature Temperature Source Pulse Rate 107 H 110 H Pulse Rate [Apical] Pulse Rate from SpO2 Sensor 107 H 110 H Respiratory Rate 22 29 H Respiratory Effort / Characteristics Respiratory Depth Respiratory Pattern Blood Pressure 83/69 L Blood Pressure [Right Arm] Blood Pressure Mean 75 Blood Pressure Mean [Right Arm] Blood Pressure Position [Right Arm] Pulse Oximetry 97 98 Oxygen Delivery Method Sepsis Recent Fever Within 48 Hours Sepsis New/Unexplained Change in Mental Status Sepsis Action Taken by Nursing 07/30/24 13:39 07/30/24 13:45 07/30/24 13:45 Temperature Temperature Source Pulse Rate 103 H 106 H Pulse Rate [Apical] Pulse Rate from SpO2 Sensor 104 H 105 H Respiratory Rate 24 24 Respiratory Effort / Characteristics Respiratory Depth Respiratory Pattern Blood Pressure 89/67 L Blood Pressure [Right Arm] Blood Pressure Mean 80 Blood Pressure Mean [Right Arm] Blood Pressure Position [Right Arm] Pulse Oximetry 94 96 Oxygen Delivery Method Sepsis Recent Fever Within 48 Hours Sepsis New/Unexplained Change in Mental Status Sepsis Action Taken by Nursing 07/30/24 14:00 07/30/24 14:00 07/30/24 14:09 Temperature Temperature Source Pulse Rate 108 H 107 H Pulse Rate [Apical] Pulse Rate from SpO2 Sensor 109 H 108 H Respiratory Rate 20 26 H Respiratory Effort / Characteristics Respiratory Depth Respiratory Pattern Blood Pressure 97/69 L Blood Pressure [Right Arm] Blood Pressure Mean 80 Blood Pressure Mean [Right Arm] Blood Pressure Position [Right Arm] Pulse Oximetry 96 96 Oxygen Delivery Method Sepsis Recent Fever Within 48 Hours Sepsis New/Unexplained Change in Mental Status Sepsis Action Taken by Nursing 07/30/24 14:16 07/30/24 14:16 07/30/24 14:16 Temperature Temperature Source Pulse Rate Pulse Rate [Apical] Pulse Rate from SpO2 Sensor Respiratory Rate Respiratory Effort / Characteristics Respiratory Depth Respiratory Pattern Blood Pressure Blood Pressure [Right Arm] Blood Pressure Mean 81 81 81 Blood Pressure Mean [Right Arm] Blood Pressure Position [Right Arm] Pulse Oximetry Oxygen Delivery Method Sepsis Recent Fever Within 48 Hours Sepsis New/Unexplained Change in Mental Status Sepsis Action Taken by Nursing 07/30/24 14:27 07/30/24 14:27 Temperature Temperature Source Pulse Rate Pulse Rate [Apical] Pulse Rate from SpO2 Sensor Respiratory Rate Respiratory Effort / Characteristics Respiratory Depth Respiratory Pattern Blood Pressure 91/75 L 91/75 L Blood Pressure [Right Arm] Blood Pressure Mean 81 81 Blood Pressure Mean [Right Arm] Blood Pressure Position [Right Arm] Pulse Oximetry Oxygen Delivery Method Sepsis Recent Fever Within 48 Hours Sepsis New/Unexplained Change in Mental Status Sepsis Action Taken by Nursing Laboratory Data 07/30/24 11:52 07/30/24 11:52 Lab Results 07/30/24 07/30/24 07/30/24 Range/Units 11:52 12:12 14:27 WBC 16.42 H (4.8-10.8) K/ul RBC 5.54 H (4.20-5.40) M/uL Hgb 16.2 H (12.0-16.0) g/dl Hct 47.5 H (37.0-47.0) % MCV 85.7 (80.0-100.0) fL MCH 29.2 (25.0-34.0) pg MCHC 34.1 (32.0-36.0) g/dL RDW Std Deviation 43.4 (36.4-46.3) fL RDW Coeff of Mariann 13.8 (11.5-14.5) % Plt Count 284 (130-400) K/uL MPV 10.6 (9.4-12.4) fL Immature Gran % (Auto) 1.3 % Neut % (Auto) 71.0 % Lymph % (Auto) 18.3 % [place] % (Auto) 5.9 % Eos % (Auto) 2.8 % Baso % (Auto) 0.7 % Neut # (Auto) 11.65 H (1.40-6.50) K/uL Lymph # (Auto) 3.01 (1.20-3.40) K/uL [place] # (Auto) 0.97 H (0.11-0.59) K/uL Eos # (Auto) 0.46 (0.00-0.50) K/uL Baso # (Auto) 0.12 (0.00-0.20) K/uL Immature Gran # (Auto) 0.21 H (0.01-0.20) K/uL PT 11.4 (9.0-12.0) Seconds INR 1.1 (0.9-1.1) Sodium 132 L (136-145) mmol/L Potassium 4.0 (3.5-5.1) mmol/L Chloride 101 (98-107) mmol/L Carbon Dioxide 21 (21-32) mmol/L Anion Gap 10 (3-11) BUN 27 H (6-23) mg/dl Creatinine 1.30 H D (0.6-1.2) mg/dl Est Cr Clr Drug Dosing 57.3 ml/min eGFR 48.56 BUN/Creatinine Ratio 20.8 H (10-20) Glucose 249 H (70-99(Fasting)) mg/dl Lactate 3.1 H* (0.4-2.0) mmol/L Calcium 9.7 (8.6-10.3) mg/dl Magnesium 1.6 L (1.7-2.4) mg/dl Total Bilirubin 0.4 (0.2-1.0) mg/dl AST 14 (13-39) U/L ALT 13 (7-52) U/L Alkaline Phosphatase 80 (34-104) U/L Total Creatine Kinase 24 L (26-192) U/L Troponin I High Sens 10.1 (0-14) pg/ml B-Natriuretic Peptide 16 (0-100) pg/ml Total Protein 6.4 (6.0-8.3) gm/dl Albumin 3.3 L (3.4-5.0) gm/dl Globulin 3.1 (2.5-4.0) gm/dl Albumin/Globulin Ratio 1.1 (0.9-2) Lipase 16 (11-82) U/L Procalcitonin 0.55 H (0-0.5) ng/ml TSH 3.340 (0.300-4.500) uIu/ml Urine Color Yellow Urine Appearance Clear (Clear) Urine pH 5.5 (4.5-7.5) Ur Specific [place] > 1.045 H (1.000-1.030) Urine Protein 1+ H (Negative) Urine Glucose (UA) Negative (Negative) Urine Ketones Negative (Negative) Urine Blood Negative (Negative) Urine Nitrite Negative (Negative) Urine Bilirubin Negative (Negative) Urine Urobilinogen Negative (Negative) Ur Leukocyte Esterase Negative (Negative) Urine WBC (Auto) 0-5 (0-5) /hpf Urine RBC (Auto) 3-5 H (0-2) /hpf U Hyaline Cast (Auto) 11-20 H (0-2) /lpf U Epithel Cells (Auto) 0-2 (0-2) /hpf Urine Bacteria (Auto) None Seen (None Seen) Hyaline Casts Present A (None Presnt) /lpf Administered Medications Lactated Ringer's (Lr) 1,000 mls @ 80 mls/hr IV .[id number] STEPHENIE Stop: 07/31/24 03:29 Last Admin: 07/30/24 15:39 Dose: 80 mls/hr Documented By: CAYETANO Discontinued Medications Sodium Chloride (Nss) 1,000 mls @ 999 mls/hr IV .Q1H1M ONE Stop: 07/30/24 12:56 Last Infusion: 07/30/24 13:02 Dose: Infused Documented By: Admin: 07/30/24 12:10 Dose: 999 mls/hr Documented By: CAYETANO Sodium Chloride (Nss) 1,000 mls @ 999 mls/hr IV .Q1H1M ONE Stop: 07/30/24 13:23 Last Infusion: 07/30/24 14:35 Dose: Infused Documented By: Admin: 07/30/24 13:02 Dose: 999 mls/hr Documented By: CAYETANO Cefepime HCl (Maxipime 2000mg) 2,000 mg in 20 mls @ 5 mls/min IV NOW STA Stop: 07/30/24 12:57 Last Admin: 07/30/24 13:14 Dose: 5 mls/min Documented By: CAYETANO Magnesium Sulfate/Dextrose (Magnesium Sulfate / D5w) 1 gm in 100 mls @ 100 mls/hr IV NOW STA Stop: 07/30/24 14:02 Last Infusion: 07/30/24 14:35 Dose: Infused Documented By: Admin: 07/30/24 13:27 Dose: 100 mls/hr Documented By: CAYETANO Prochlorperazine 5 mg/ Syringe 5 mls @ 5 mls/min IV ONE ONE Stop: 07/30/24 15:45 Last Admin: 07/30/24 16:12 Dose: 5 mls/min Documented By: CAYETANO Famotidine (Pepcid 20mg Iv Push) 20 mg in 5 mls @ 2.5 mls/min IV NOW STA Stop: 07/30/24 15:46 Last Admin: 07/30/24 15:56 Dose: 2.5 mls/min Documented By: CAYETANO Ioversol (Optiray 320 125ml) 119 ml IV ONCE ONE Stop: 07/30/24 12:33 Last Admin: 07/30/24 12:33 Dose: 119 ml Documented By: EVANGELINA Metoclopramide HCl (Metoclopramide Hcl Inj 5 Mg/Ml 2 Ml Vial) 5 mg IV ONE ONE Stop: 07/30/24 13:18 Last Admin: 07/30/24 13:19 Dose: 5 mg Documented By: CAYETANO Ondansetron HCl (Ondansetron Inj 2 Mg/Ml 2 Ml Vial) 4 mg IV NOW STA Stop: 07/30/24 12:05 Last Admin: 07/30/24 12:10 Dose: 4 mg Documented By: CAYETANO Imaging Data Radiologist's Impression: Abdomen/Pelvis CT 07/30/24 11:[address] WITH IV CONTRAST HISTORY: Acute chest and abdominal pain with tachycardia, nausea and vomiting. Reported history of metastatic lung cancer tachy, n/v, cancer TECHNIQUE: Multiaxial CT images of the abdomen and pelvis were performed following the IV administration of 119 cc of Optiray, A dose lowering technique was utilized adhering to the principles of ALARA. COMPARISON STUDY: CT chest of same day, CT abdomen and pelvis 02/15/2023, PET/CT 07/02/2024 FINDINGS: Chest CT is dictated separately. Mild left hemidiaphragmatic elevation. Thickening adjacent to the left hemidiaphragm redemonstrated. Likely benign pneumatosis of the splenic flexure is unchanged. No pneumoperitoneum. Unremarkable spleen, pancreas and adrenal glands. Cholecystectomy. Hepatic steatosis. Patency of the hepatic and portal veins. Cysts of the kidneys measure up to 1.2 cm on the right. No hydronephrosis. Decompressed urinary bladder with wall thickening. Fibroid uterus with 1.6 cm pedunculated versus subserosal lesion of the fundus. Subcentimeter retroperitoneal lymph nodes. No bowel obstruction or bowel wall thickening. Colonic diverticulosis. Right iliopsoas intramuscular lipoma. Noninflamed appendix. Small fat filled umbilical hernia with diastases of 2.6 cm. Degenerative changes of the spine. IMPRESSION: 1. No bowel obstruction or bowel wall thickening. 2. Stable findings compared to the 07/02/2024 PET/CT. 3. Unchanged benign pneumatosis of the splenic flexure. 4. Hepatic steatosis. 5. Please refer to the CT chest study of same day for additional findings. ACT 112: Negative or not required by law. The above report was generated using voice recognition software. It may contain grammatical, syntax or spelling errors. Electronically signed by: Kamran Collado M.D. 07/30/2024 12:53 PM Chest CTA 07/30/24 11:56 CT ANGIOGRAPHY OF THE CHEST, PULMONARY EMBOLUS PROTOCOL CLINICAL HISTORY: Vomiting and tachycardia. Lung cancer. Evaluate for pulmonary embolus. COMPARISON STUDY: Chest CT September 25, 2023. Chest radiograph performed earlier today. PET/CT July 02, 2024. TECHNIQUE: Following IV administration of 119 mL of Optiray, helical axial images of the chest were obtained utilizing the pulmonary embolus protocol. Maximal intensity projections and sagittal and coronal reformats were viewed on an independent 3D workstation. IV contrast was administered without complication. Automated exposure control was utilized for the study. A dose lowering technique was utilized adhering to the principles of ALARA. CT DOSE: 2575.92 mGy.cm FINDINGS: No enlarged axillary, mediastinal or hilar lymph nodes are present. Prominent bilateral axillary lymph nodes remain unchanged. The size of the heart is normal. There is no pericardial effusion. There is no thoracic aortic dissection. Pulmonary arterial opacification is suboptimal. No pulmonary emboli are identified although upper lobe pulmonary arteries are suboptimally assessed on this exam. No pneumothorax or effusion is present. There is no consolidation to suggest pneumonia. A 2.9 cm left apical opacity on image 190 of 235 is similar to PET/CT of July 02, 2024. A few small right lung nodules remain unchanged. No new pulmonary nodules are present. Abdomen and pelvis CT will be reported separately. Metastasis of the splenic flexure of the colon is again noted. There is hepatic steatosis. IMPRESSION: 1. No pulmonary emboli identified although exam moderately compromised by suboptimal opacification. 2. No consolidation to suggest pneumonia. 3. No change in a 2.9 cm left apical opacity since prior PET/CT. This favors postradiation change however can be assessed on follow-up exams to ensure expected evolution. ACT 112: Negative or not required by law. Electronically signed by: Abimael Johnson M.D. 07/30/2024 1:33 PM Discharge Plan Visit Data Chief Complaint: Illness Stated Complaint: UPSET STOMACH, FEVER, SWOLLEN HANDS/FEET ED Provider: Rian Leach Discharge Problem: Sepsis, Dehydration, Nausea & vomiting Patient Disposition: Being Evaluated by Hospitalist Discharge Instructions Interventions: ED Discharge Assessment Last Done: 07/30/24 17:06
[2024-07-30] MEDS: ONDANSETRON INJ 2 MG/ML 2 ML VIAL IV STA (12:10)
[2024-07-30] MEDS: SODIUM CHLORIDE 0.9% 1,000 ML IV ONE ×2 (12:10→13:02)
[2024-07-30 12:21] LABS: Basophils # (auto) 0.12 K/uL (0.00-0.20); Basophils % (auto) 0.7 %; Eosinophils # (auto) 0.46 K/uL (0.00-0.50); Eosinophils % (auto) 2.8 %; Hematocrit (blood only) 47.5 % (37.0-47.0); Hemoglobin 16.2 g/dl (12.0-16.0); Immature Granulocytes # (auto) 0.21 K/uL (0.01-0.20); Immature Granulocytes % (auto) 1.3 %; Lymphocytes # (auto) 3.01 K/uL (1.20-3.40); Lymphocytes % (auto) 18.3 %; Mean Corpuscular Hemoglobin 29.2 pg (25.0-34.0); Mean Corpuscular Hgb Conc 34.1 g/dL (32.0-36.0); Mean Corpuscular Volume 85.7 fL (80.0-100.0); Mean Platelet Volume 10.6 fL (9.4-12.4); Monocytes # (auto) 0.97 K/uL (0.11-0.59); Monocytes % (auto) 5.9 %; Neutrophils # (auto) 11.65 K/uL (1.40-6.50); Platelet Count 284 K/uL (130-400); RDW Coefficient of Variation 13.8 % (11.5-14.5); RDW Standard Deviation 43.4 fL (36.4-46.3); Red Blood Count 5.54 M/uL (4.20-5.40); White Blood Count 16.42 K/ul (4.8-10.8)
[2024-07-30] MEDS: OPTIRAY 320 125ml IV ONE (12:33)
[2024-07-30 12:46] LABS: INR 1.1 (0.9-1.1); Prothrombin Time 11.4 Seconds (9.0-12.0)
--- NOTE | 2024-07-30 12:54 | CT Scan Report ---
ABDOMEN AND PELVIS CT WITH IV CONTRAST HISTORY: Acute chest and abdominal pain with tachycardia, nausea and vomiting. Reported history of me tastatic lung cancer tachy, n/v, cancer TECHNIQUE: Multiaxial CT images of the abdomen and pelvis were performed following the IV administrat ion of 119 cc of Optiray, A dose lowering technique was utilized adhering to the principles of ALARA . COMPARISON STUDY: CT chest of same day, CT abdomen and pelvis 02/15/2023, PET/CT 07/02/2024 FINDINGS: Chest CT is dictated separately. Mild left hemidiaphragmatic elevation. Thickening adjacent to the left hemidiaphragm redemonstrated. Likely benign pneumatosis of the splenic flexure is unchan ged. No pneumoperitoneum. Unremarkable spleen, pancreas and adrenal glands. Cholecystectomy. Hepatic steatosis. Patency of the hepatic and portal veins. Cysts of the kidneys measure up to 1.2 cm on the right. No hydronephrosis. Decompressed urinary bladd er with wall thickening. Fibroid uterus with 1.6 cm pedunculated versus subserosal lesion of the fund us. Subcentimeter retroperitoneal lymph nodes. No bowel obstruction or bowel wall thickening. Colonic diverticulosis. Right iliopsoas intramuscular lipoma. Noninflamed appendix. Small fat filled umbilic al hernia with diastases of 2.6 cm. Degenerative changes of the spine. IMPRESSION: 1. No bowel obstruction or bowel wall thickening. 2. Stable findings compared to the 07/02/2024 PET/CT. 3. Unchanged benign pneumatosis of the splenic flexure. 4. Hepatic steatosis. 5. Please refer to the CT chest study of same day for additional findings. ACT 112: Negative or not required by law. The above report was generated using voice recognition software. It may contain grammatical, syntax o r spelling errors. Electronically signed by: Kamran Collado M.D. 07/30/2024 12:53 PM
[2024-07-30 12:55] LABS: Albumin Globulin Ratio 1.1 (0.9-2); Albumin Level 3.3 gm/dl (3.4-5.0); BUN Creatinine Ratio 20.8 (10-20); Bilirubin,Total 0.4 mg/dl (0.2-1.0); Calcium 9.7 mg/dl (8.6-10.3); Creatinine Clr Calc Pharmacy 57.3 ml/min; Globulin 3.1 gm/dl (2.5-4.0); Magnesium 1.6 mg/dl (1.7-2.4); Thyroid Stimulating Hormone 3.34 uIu/ml (0.300-4.500); Total Protein 6.4 gm/dl (6.0-8.3); Troponin I High Sensitivity 10.1 pg/ml (0-14)
[2024-07-30] MEDS: CEFEPIME 2000MG 2,000 MG/20 ML SYR IV STA (13:14)
[2024-07-30] MEDS: METOCLOPRAMIDE HCL INJ 5 MG/ML 2 ML VIAL IV ONE (13:19)
[2024-07-30] MEDS: MAGNESIUM SULFATE / D5W 1 GM/100 ML BAG IV STA (13:27)
--- NOTE | 2024-07-30 13:35 | CT Scan Report ---
CT ANGIOGRAPHY OF THE CHEST, PULMONARY EMBOLUS PROTOCOL CLINICAL HISTORY: Vomiting and tachycardia. Lung cancer. Evaluate for pulmonary embolus. COMPARISON STUDY: Chest CT September 25, 2023. Chest radiograph performed earlier today. PET/CT Octobe 2023. TECHNIQUE: Following IV administration of 119 mL of Optiray, helical axial images of the chest were o btained utilizing the pulmonary embolus protocol. Maximal intensity projections and sagittal and cor onal reformats were viewed on an independent 3D workstation. IV contrast was administered without co mplication. Automated exposure control was utilized for the study. A dose lowering technique was ut ilized adhering to the principles of ALARA. CT DOSE: 2575.92 mGy.cm FINDINGS: No enlarged axillary, mediastinal or hilar lymph nodes are present. Prominent bilateral ax illary lymph nodes remain unchanged. The size of the heart is normal. There is no pericardial effusio n. There is no thoracic aortic dissection. Pulmonary arterial opacification is suboptimal. No pulmona ry emboli are identified although upper lobe pulmonary arteries are suboptimally assessed on this exa m. No pneumothorax or effusion is present. There is no consolidation to suggest pneumonia. A 2.9 cm l eft apical opacity on image 190 of 235 is similar to PET/CT of July 02, 2024. A few small right gabriela ng nodules remain unchanged. No new pulmonary nodules are present. Abdomen and pelvis CT will be repo rted separately. Metastasis of the splenic flexure of the colon is again noted. There is hepatic stea tosis. IMPRESSION: 1. No pulmonary emboli identified although exam moderately compromised by suboptimal opacification. 2. No consolidation to suggest pneumonia. 3. No change in a 2.9 cm left apical opacity since prior PET/CT. This favors postradiation change how ever can be assessed on follow-up exams to ensure expected evolution. ACT 112: Negative or not required by law. Electronically signed by: Abimael Johnson M.D. 07/30/2024 1:33 PM
--- NOTE | 2024-07-30 13:50 | History & Physical Report ---
Date of Service July 30, 2024 Assessment & Plan (1) Sepsis: Plan: Initially, patient developed URI symptoms from 07/21 - 07/26; she then developed GI symptoms (N/V) after starting doxycycline on 07/27 Unclear source for her sepsis at time of admission, but potentially a developing pulmonary infection; tachycardic, tachypneic, and hypotensive (88/76) on arrival Lactate 3.1-->1.8 on arrival PCT mildly elevated at 0.55 Leukocytosis at 16.42 with neutrophil predominance; reported fevers at home NSS 2000 mg IV to meet ideal body weight (30 cc/kg) given in the ED Blood cultures drawn Sputum culture ordered, pending MRSA swab ordered, pending Patient is currently immunocompromised as she is receiving treatment for her metastatic lung cancer Cefepime 2000 mg IV q8h Doxycycline 100 mg IV q12h Acetaminophen as needed for pain/fever (2) Viral upper respiratory illness: Plan: Entero-/rhinovirus (+) on 07/29 Droplet isolation precautions Supportive care (3) BRIGIDO (acute kidney injury): Plan: Prerenal suspected in the setting of dehydration and GI losses BUN 27, creatinine 1.30 (baseline 0.70), EGFR 19.7 Avoid nephrotoxic agents for possible Continue IVF resuscitation with LR at 80mL/hr x 1 L (4) Lung cancer, primary, with metastasis from lung to other site: Plan: On Keytruda Follows with Dr. Le (5) Nausea & vomiting: Plan: IV antiemetics as needed Plan Disposition: Admit to PCU telemetry Full code Clear liquid diet and advance as tolerated VTE PPx: Heparin 5000u SQ q12h History of Present Illness Chief Complaint: Illness Primary Care Provider: DO Alva Dickens is a pleasant 54-year-old female with PMH of metastatic lung cancer (on Keytruda) and kidney stones. She originally presented to the ED on 07/29 for URI symptoms/fever x 8 days. Her symptoms started gradually on Tuesday 07/17, and included sore throat, low-grade fever, cough and congestion. Her fever then got worse over the weekend, and started getting up to 101.3 F. She went to see her PCP on Friday 07/27, and was prescribed doxycycline. However, shortly after starting the Doxy, she developed GI discomfort, fatigue, nausea, and vomiting. She also reports that she had diarrhea that started one day prior to starting doxycycline. Patient went to the emergency department on 07/29 and tested positive for entero-/rhinovirus on 07/29. She was sent home, but returned to the ED on 07/30. Patient is currently undergoing cancer treatment (Keytruda every 6 weeks; last on July 14) for her metastatic lung cancer. Initially, she had concern for her lungs as she often has a lung infection secondary to their cancer. Patient did not take her regular morning medicine today as she was unable to keep anything down. She did take Zofran x 2, which would help with her nausea for short period of time. No recent change in medications. She has been taking Tylenol at home for her fever. Her diarrhea has been loose stool but reports that it is formed. No blood in her stool. No sick contacts to her knowledge, but she does note her niece was coughing just prior to her initial sickness. Additionally, she notes vomiting can be induced by pressing on her stomach. Patient denies smoking, tobacco use, recent alcohol use. Patient is mildly tachycardic at 111 bpm at time of admission; vitals otherwise stable. ED course: Cefepime 2000 mg IV NSS 1000 mL IV x 2 Zofran 4 mg IV Metoclopramide 5 mg IV Magnesium sulfate 1 g IV ROS: Patient endorses fever (worse at night), chills, night-sweats, fatigue (feels like she is in "slow motion" at times), body aches, [place], abdominal cramping, N/V/D, and decreased urinary frequency. Patient denies dizziness, lightheadedness, syncope, chest pain, chest palpitations, pleuritic CP, SOB, cough, hematemesis, dysuria, burning with uri nation, or blood in the urine/stool. Allergies Allergy/AdvReac Type Severity Reaction Status Date / Time amoxicillin [From Augmentin] Allergy Severe Hives Unverified 07/22/24 13:40 clavulanic acid Allergy Severe Hives Unverified 07/22/24 13:40 [From Augmentin] codeine AdvReac Intermediate Eye Verified 07/22/24 13:40 problems (if in the sun) Home Medications Medication Instructions Recorded Confirmed Type diphenhydramine HCl 50 mg capsule 50 mg PO HS 11/18/20 07/30/24 History ([employer]) acetaminophen 500 mg capsule 1,000 mg PO Q6H PRN Pain 08/15/21 07/30/24 History oxycodone 5 mg capsule 5 mg PO Q8H PRN Pain 08/15/21 07/30/24 History epinephrine 0.3 mg/0.3 mL 0.3 mg (0.3 mL) IM Q3H PRN 12/30/22 07/30/24 Rx injection, auto-injector (EpiPen anaphylaxis #2 ea 2-Nando) pembrolizumab 50 mg intravenous 50 mg IV .q6wks 12/30/22 07/30/24 History solution ondansetron 4 mg disintegrating 4 mg PO Q6H PRN nausea and 01/17/23 07/30/24 Rx tablet vomiting #14 tabs albuterol sulfate 90 mcg/actuation 2 puffs inhalation 6XD PRN 11/14/23 07/30/24 Rx aerosol inhaler shortness of breath or wheezing #6.7 grams benzonatate 100 mg capsule 100 mg PO TID PRN cough #15 caps 11/14/23 07/30/24 Rx ascorbic acid (vitamin C) 250 mg 250 mg PO DAILY 01/07/24 07/30/24 History tablet ldeasurt-pcz-sbtxsk 5 mg-zeaxanth 1 cap PO DAILY 01/07/24 07/30/24 History 1 mg-bilberry 7.5 mg-herbal capsule (Macular Health Formula) zinc gluconate 30 mg tablet 30 mg PO DAILY 01/07/24 07/30/24 History ergocalciferol (vitamin D2) 1,250 1,250 mcg PO .weekly #14 caps 07/10/24 07/30/24 Rx mcg (50,000 unit) capsule budesonide 90 mcg/actuation breath 2 inh inhalation BID PRN sob 07/29/24 07/30/24 History activated powder inhaler (Pulmicort Flexhaler) doxycycline hyclate 100 mg tablet 100 mg PO BID 07/29/24 07/30/24 History mometasone 100 mcg/actuation HFA 2 puff inhalation BID PRN sob 07/29/24 07/30/24 History aerosol inhaler (Asmanex HFA) ondansetron 4 mg disintegrating 4 mg PO Q6H PRN nausea and 07/29/24 07/30/24 Rx tablet vomiting #20 tabs Past Med/Surg History Problem List (Updated 07/30/24 @ 13:51 by Obinna Murray PA-C) BRIGIDO (acute kidney injury) Lung cancer, primary, with metastasis from lung to other site Started chemo 08/07/21 Nausea & vomiting (Acute) Dehydration (Acute) Sepsis (Acute) Viral upper respiratory illness (Acute) COVID-19 (Acute) Metastatic adenocarcinoma (Chronic 07/11/21) Pneumatosis coli Lateral epicondylitis of elbow COVID-19 (Acute) Lung cancer Endometrial thickening on ultrasound Abnormal uterine bleeding (AUB) Bilateral kidney stones Fibroids Obese Cholelithiasis Obesity Medical History Endometrial polyp Lung cancer, primary, with metastasis from lung to other site Started chemo 08/07/21 Contact with and (suspected) exposure to covid-19 COVID positive family members exposure (07/2020) > personal symptoms at time of: Fatigue, sinus infection type symptoms, cough > was not tested/symptoms resolved Hx of pancreatitis Several years ago Kidney stone Hx Surgical History History of dilatation and curettage (08/2021) Hx laparoscopic cholecystectomy (07/11/21) Laparoscopic Cholecystectomy with Cholangiogram with Biopsy of the Omentum and Biopsy of Peritoneal Implant (07/11/21): Grade view 1, Cabezas #2, ETT 7.5 at [facility]. Patient reported dyspnea in recovery room post-operatively. She states improvement with incentive spirometry and possible oxygen supplementation. She states she was discharged home same day without issue. No mention of issues per anesthesia post-op progress note. Hx of colonoscopy Nausea and vomiting after administration of anesthetic agent mild PONV - patch "worked" History of lithotripsy x2 (12/2020, 01/2021) Left ESWL (01/27/21): [place]4 [place] [facility] [place] used[place] teeth extracted S/P cystoscopy with ureteral stent placement Family History Grandmother (Maternal) Colorectal cancer Father Diabetes Mother Hypertension Brother Diabetes Grandmother (Paternal) Kidney malignancy Other No family history of adverse response to anesthesia Denies family history of Ovarian cancer Breast cancer Social History Smoking Status: Never smoker Tobacco Type: Cigarettes Second Hand Exposure: Yes (FATHER SMOKED); Do You Dip or Chew Tobacco: No; Hx Alcohol Use: No Hx Substance Use: No Preferred Language: Gambian Communication Ability: Effective Visual Impairment: No Limitations Hearing Ability: Normal Horse Race Timer Required: No Beliefs That Will Affect Care: None marital status: Current Living Situation: Spouse Current Living Situation Comment: [place] current occupational status: employed current occupation: [employer] How many Children do You have: 0 Feels Safe at Home: Yes Childhood Exposure to Second-Hand Smoke: No Diet: regular caffeine: Yes during the past year weight has: remained stable Dental Care, Regularly: Yes Assistive Devices: Glasses Review of Systems Review of Systems: See HPI above Physical Exam Physical Exam: General: no acute distress; pleasant affect; non-toxic appearing; well- nourished; cooperative; SpO2 95% on RA HEENT: normocephalic, atraumatic; no scleral icterus; PERRLA w/ EOMs intact; vision and hearing grossly intact Neck: supple; no lymphadenopathy; trachea midline Skin: warm, dry without signs of tenting; no cyanosis; no rashes, bruising, lesions, or erythema noted CV: chest wall NTP; RR, tachycardic around 113 bpm; S1/S2 normal; no murmurs/rubs/gallops; pulses intact and symmetric at radial, DP, and PT Lungs: no acute respiratory distress; symmetrical chest wall expansion; clear breath sounds across all lung quiroz w/o adventitious sounds; no wheezing ABD: Soft, NTP in all 4 quadrants; BS present; no rebound/guarding; no distention; no rashes or bruising noted on the abdomen or flanks bilaterally MSK: no tics or fasciculations; +1 pitting edema noted around the ankles bilaterally, nonerythematous Neuro: A&Ox3; normal mood and affect; fluent speech; no focal deficits; sensation grossly intact in the LEs b/l Results & Data Results & Data Vital Signs (Past 12 Hours) Vital Signs Temp Pulse Pulse Resp BP BP Pulse Ox 07/30/24 12:47 111 H 24 103/74 97 07/30/24 12:21 88/76 L 07/30/24 12:21 101 H 17 98 07/30/24 12:21 115 H 17 88/76 L 98 07/30/24 12:20 103 H 18 96 07/30/24 12:15 118 H 30 H 07/30/24 12:03 127 H 19 93 07/30/24 11:57 126 H 20 96/70 L 88 L 07/30/24 11:57 126 H 07/30/24 11:49 37.4 C 127 H 16 95/72 L 95 07/30/24 11:29 37.2 C 131 H 18 95 O2 Del Method 07/30/24 12:47 Room Air 07/30/24 12:21 07/30/24 12:21 07/30/24 12:21 Room Air 07/30/24 12:20 Room Air 07/30/24 12:15 07/30/24 12:03 07/30/24 11:57 07/30/24 11:57 07/30/24 11:49 Room Air 07/30/24 11:29 Room Air Laboratory Results Abnormal lab results 07/30/24 Range/Units 11:52 WBC 16.42 H (4.8-10.8) K/ul RBC 5.54 H (4.20-5.40) M/uL Hgb 16.2 H (12.0-16.0) g/dl Hct 47.5 H (37.0-47.0) % Neut # (Auto) 11.65 H (1.40-6.50) K/uL [place] # (Auto) 0.97 H (0.11-0.59) K/uL Immature Gran # (Auto) 0.21 H (0.01-0.20) K/uL Sodium 132 L (136-145) mmol/L BUN 27 H (6-23) mg/dl Creatinine 1.30 H D (0.6-1.2) mg/dl BUN/Creatinine Ratio 20.8 H (10-20) Glucose 249 H (70-99(Fasting)) mg/dl Lactate 3.1 H* (0.4-2.0) mmol/L Magnesium 1.6 L (1.7-2.4) mg/dl Total Creatine Kinase 24 L (26-192) U/L Albumin 3.3 L (3.4-5.0) gm/dl Procalcitonin 0.55 H (0-0.5) ng/ml Diagnostic Findings Abdomen/Pelvis CT 07/30/24 11:[address] WITH IV CONTRAST HISTORY: Acute chest and abdominal pain with tachycardia, nausea and vomiting. Reported history of metastatic lung cancer tachy, n/v, cancer TECHNIQUE: Multiaxial CT images of the abdomen and pelvis were performed following the IV administration of 119 cc of Optiray, A dose lowering technique was utilized adhering to the principles of ALARA. COMPARISON STUDY: CT chest of same day, CT abdomen and pelvis 02/15/2023, PET/CT 07/02/2024 FINDINGS: Chest CT is dictated separately. Mild left hemidiaphragmatic elevation. Thickening adjacent to the left hemidiaphragm redemonstrated. Likely benign pneumatosis of the splenic flexure is unchanged. No pneumoperitoneum. Unremarkable spleen, pancreas and adrenal glands. Cholecystectomy. Hepatic steat osis. Patency of the hepatic and portal veins. Cysts of the kidneys measure up to 1.2 cm on the right. No hydronephrosis. Decompressed urinary bladder with wall thickening. Fibroid uterus with 1.6 cm pedunculated versus subserosal lesion of the fundus. Subcentimeter retroperitoneal lymph nodes. No bowel obstruction or bowel wall thickening. Colonic diverticulosis. Right iliopsoas intramuscular lipoma. Noninflamed appendix. Small fat filled umbilical hernia with diastases of 2.6 cm. Degenerative changes of the spine. IMPRESSION: 1. No bowel obstruction or bowel wall thickening. 2. Stable findings compared to the 07/02/2024 PET/CT. 3. Unchanged benign pneumatosis of the splenic flexure. 4. Hepatic steatosis. 5. Please refer to the CT chest study of same day for additional findings. ACT 112: Negative or not required by law. The above report was generated using voice recognition software. It may contain grammatical, syntax or spelling errors. Electronically signed by: Kamran Collado M.D. 07/30/2024 12:53 PM Chest CTA 07/30/24 11:56 CT ANGIOGRAPHY OF THE CHEST, PULMONARY EMBOLUS PROTOCOL CLINICAL HISTORY: Vomiting and tachycardia. Lung cancer. Evaluate for pulmonary embolus. COMPARISON STUDY: Chest CT September 25, 2023. Chest radiograph performed earlier today. PET/CT July 02, 2024. TECHNIQUE: Following IV administration of 119 mL of Optiray, helical axial images of the chest were obtained utilizing the pulmonary embolus protocol. Maximal intensity projections and sagittal and coronal reformats were viewed on an independent 3D workstation. IV contrast was administered without complication. Automated exposure control was utilized for the study. A dose lowering technique was utilized adhering to the principles of ALARA. CT DOSE: 2575.92 mGy.cm FINDINGS: No enlarged axillary, mediastinal or hilar lymph nodes are present. Prominent bilateral axillary lymph nodes remain unchanged. The size of the heart is normal. There is no pericardial effusion. There is no thoracic aortic dissection. Pulmonary arterial opacification is suboptimal. No pulmonary emboli are identified although upper lobe pulmonary arteries are suboptimally assessed on this exam. No pneumothorax or effusion is present. There is no consolidation to suggest pneumonia. A 2.9 cm left apical opacity on image 190 of 235 is similar to PET/CT of July 02, 2024. A few small right lung nodules remain unchanged. No new pulmonary nodules are present. Abdomen and pelvis CT will be reported separately. Metastasis of the splenic flexure of the colon is again noted. There is hepatic steatosis. IMPRESSION: 1. No pulmonary emboli identified although exam moderately compromised by suboptimal opacification. 2. No consolidation to suggest pneumonia. 3. No change in a 2.9 cm left apical opacity since prior PET/CT. This favors postradiation change however can be assessed on follow-up exams to ensure expected evolution. ACT 112: Negative or not required by law. Electronically signed by: Abimael Johnson M.D. 07/30/2024 1:33 PM ECG Additional Comments: ECG revealed sinus tachycardia at 126 bpm; QTc 448 Code Status & VTE Plan Code Status Full code VTE Prophylaxis Plan VTE Prophylaxis will be ordered: Yes Supervising Physician Co-Signing Physician Notes Patient seen and examined, chart reviewed, case discussed with Obinna Murray PA-C and I agree with the assessment and plan as above except as otherwise noted Labs and images reviewed 54yo F with a history of metastatic lung cancer on Keytruda who presents with URI symptoms, fever, chills of around 1 week and worsening nausea/vomiting. Entero-/rhinovirus +1 days ago, progressive symptoms and unable to keep down p.o. due to feeling poorly. She is tachycardic, hypotensive, tachypneic on admission meeting sepsis criteria. CTA of the chest does not show evidence of pneumonia or PE. CTA/P is without obstructive or acute findings. She does have a leukocytosis with a true left shift/granulocytic expansion. Given this and potential underlying immune compromise and meeting severe sepsis criteria with hypotension, tachycardia, tachypnea, and elevated lactate agree with empiric antibiotic treatment upfront, blood cultures, aggressive fluids and ongoing monitoring. 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 Continued on cefepime cefepime. Will continue doxycycline for both atypical and some MRSA coverage pending MRSA nare. No signs of lobar consolidation is seen however leukocytosis with true left shift elevated procalcitonin and worsening clinical status with sepsis is highly concerning for developing secondary bacterial infection. If clinically worsening/MRSA nares positive then can expand coverage to include vancomycin. Sputum cultures pending. UA is still pending however she does not have any urinary symptoms. Lactate is elevated at 3.1. She is received 2 L of fluids at time of initial assessment. IBW recommendations 1636 cc, a BW 3108 cc. At time of assessment she is still intermittently hypotensive and slightly tachycardic although blood pressure is improving and pulse is downtrending. She is having trouble tolerating p.o. we will continue another 1 L of fluids at maintenance for sepsis, and patient will attempt to increase her p.o. as tolerated in the setting of critical IV fluid shortage. Patient seen at the bedside on reassessment, cap refill is improving and is now less than 2 seconds. Lactate drawn, remains pending. PG Care Time/CCT Total # of Minutes Spent Total Time Spent with Patient: Total time spent is greater than 50% in coordination of care (as documented) at patient's floor/unit and/or counseling patient: [place] [address] INT INP/OBS CARE 3/75MIN Patient Type Established Medical Decision Making High Complexity Diagnoses Sepsis A41.9 Viral upper respiratory illness J06.9 BRIGIDO (acute kidney injury) N17.9 Lung cancer, primary, with metastasis from lung to other site C34.90 Nausea & vomiting R11.2
[2024-07-30 15:39] LABS: Appearance Urine Clear (Clear); Bacteria Urine Automated None Seen (None Seen); Bilirubin Urine Negative (Negative); Blood Urine Negative (Negative); Color Urine Yellow; Epithelial Cell Urine Auto 0-2 /hpf (0-2); Glucose Urine UA Negative (Negative); Hyaline Casts Urine Present /lpf (None Presnt); Ketones Urine Negative (Negative); Leukocyte Esterase Urine Negative (Negative); Nitrite Urine Negative (Negative); Protein Urine 1+ (Negative); Specific Gravity Urine > 1.045 (1.000-1.030); Urobilinogen Urine Negative (Negative); WBC Urine Automated 0-5 /hpf (0-5); pH Urine 5.5 (4.5-7.5)
[2024-07-30] MEDS: LACTATED RINGER'S 1,000 ML IV SCH (15:39)
[2024-07-30] MEDS: FAMOTIDINE 20MG IV PUSH 20 MG/5 ML SYR IV STA (15:56)
[2024-07-30] MEDS: PROCHLORPERAZINE 5 MG in SYRINGE 4 ML IV ONE (16:12)
[2024-07-30] MEDS ORDERED: BENZONATATE 100 MG CAPSULE PO PRN (17:17)
[2024-07-30] MEDS ORDERED: [UNRECOGNIZED DRUG - OTHER] INH PRN (17:17)
[2024-07-30] MEDS ORDERED: MOMETASONE INH PRN (17:17)
[2024-07-30] MEDS ORDERED: ALBUTEROL HFA 8 GM INHALER INH PRN (17:17)
[2024-07-30] MEDS ORDERED: oxyCODONE HCL IR 5 MG TAB (IMMEDIATE RELEASE) PO PRN (17:22)
[2024-07-30] MEDS: HEPARIN SOD 5,000 UNIT/0.5 ML VIAL SQ SCH (20:04)
[2024-07-30] MEDS: DOXYCYCLINE HYCLATE 100 MG in DEXTROSE 5% MINI-B 100 ML IV SCH (20:09)
[2024-07-31] MEDS: ACETAMINOPHEN 325 MG TAB PO PRN (00:10)
[2024-07-31] MEDS: CEFEPIME 2000MG 2,000 MG/20 ML SYR IV SCH ×2 (00:10→20:02)
[2024-07-31] MEDS: ONDANSETRON INJ 2 MG/ML 2 ML VIAL IV PRN (00:30)
--- NOTE | 2024-07-31 05:55 | Electrocardiogram Report ---
Test Reason : Blood Pressure : */* mmHG Vent. Rate : 126 BPM Atrial Rate : 126 BPM P-R Int : 124 ms QRS Dur : 76 ms QT Int : 310 ms P-R-T Axes : 0 -22 10 degrees QTcB Int : 448 ms Sinus tachycardia Minimal voltage criteria for LVH, may be normal variant ( R in aVL ) Poor R wave progression, consider anterior WA vs. lead placement vs. LVH Possible Inferior infarct Abnormal ECG When compared with ECG of 09-Feb-2024 21:06, Nonspecific T wave abnormality no longer evident in Lateral leads Confirmed by Alex Morel ([id number]) on 07/31/2024 5:55:35 AM Referred By: REFERRED SELF Confirmed By: Alex Morel
[2024-07-31] MEDS ORDERED: FLUTICASONE FUROATE 100MCG 14 PUFFS/INHALER INH SCH (09:00)
[2024-07-31 09:45] LABS: Basophils # (auto) 0.11 K/uL (0.00-0.20); Basophils % (auto) 0.7 %; Eosinophils % (auto) 3.2 %; Hematocrit (blood only) 41.5 % (37.0-47.0); Hemoglobin 13.9 g/dl (12.0-16.0); Immature Granulocytes # (auto) 0.21 K/uL (0.01-0.20); Immature Granulocytes % (auto) 1.4 %; Lymphocytes % (auto) 18.1 %; Mean Corpuscular Hgb Conc 33.5 g/dL (32.0-36.0); Mean Corpuscular Volume 86.6 fL (80.0-100.0); Mean Platelet Volume 10.5 fL (9.4-12.4); Monocytes % (auto) 6.5 %; Neutrophils # (auto) 10.81 K/uL (1.40-6.50); Neutrophils % (auto) 70.1 %; Platelet Count 260 K/uL (130-400); RDW Standard Deviation 44.6 fL (36.4-46.3); Red Blood Count 4.79 M/uL (4.20-5.40); White Blood Count 15.43 K/ul (4.8-10.8)
[2024-07-31 09:51] LABS: Calcium 9.1 mg/dl (8.6-10.3); Magnesium 1.6 mg/dl (1.7-2.4); Potassium 4.1 mmol/L (3.5-5.1)
[2024-07-31 09:57] LABS: BUN Creatinine Ratio 26.9 (10-20); Creatinine Clr Calc Pharmacy 64.1 ml/min
--- NOTE | 2024-07-31 10:26 | XRay Report ---
XR chest 2V PA/lateral HISTORY: 54 years-old Female sepsis, rhinovirus+; r/o pneumonia COMPARISON: CTA chest 07/30/2024 TECHNIQUE: PA and lateral views of the chest FINDINGS: Cardiac silhouette is normal in size. Left apical opacity redemonstrated. No pneumothorax, pleural ef fusion or overt pulmonary edema. Bones appear grossly intact. Unchanged mild left basilar atelectasis versus scarring with left hemidiaphragmatic elevation. Benign pneumatosis of the splenic flexure. Ch olecystectomy. IMPRESSION: 1. No acute process of the chest. 2. Ill-defined opacity of the left lung apex is again noted, better seen on yesterday's CTA of the ch est. 3. Benign pneumatosis of the splenic flexure redemonstrated. ACT 112: Negative or not required by law. The above report was generated using voice recognition software. It may contain grammatical, syntax o r spelling errors. Electronically signed by: Kamran Collado M.D. 07/31/2024 10:24 AM
[2024-07-31] MEDS: MAGNESIUM SULFATE / D5W 1 GM/100 ML BAG IV SCH (10:41)
--- NOTE | 2024-07-31 11:27 | Hospitalist Progress Note ---
Date of Service July 31, 2024 Assessment & Plan (1) Sepsis: Plan: presumed 2nd to rhinovirus/enterovirus no bacterial source thus far found blood cx's to date negative CTA chest yesterday, and cxr today w/o pneumonia cortisol level wnl ua on 07/29 and 07/30 not suggestive of UTI, and urine cx from 07/29 negative no evidence of septic phlebitis of right arm cont cefepime/doxy to cover for possible bacterial superinfection while awaiting cultures (2) Viral upper respiratory illness: Plan: Entero-/rhinovirus (+) on 07/29 Droplet isolation precautions Supportive care CXR today without any complicating bacterial superinfection (3) BRIGIDO (acute kidney injury): Plan: presenting Cr 1.3 today 1.19 s/p IV fluids improving repeat BMP am (4) Lung cancer, primary, with metastasis from lung to other site: Plan: On Keytruda [id number] Follows with Dr. Le, CCP scans done in the ER yesterday without signs of worsening metastatic disease (5) Nausea & vomiting: Plan: IV antiemetics as needed likely 2nd to enterovirus/rhinovirus add pepcid 20mg IV x 1 (6) Thrombosis of right cephalic vein: Plan: this explains, at least in part, her right arm/hand swelling it is a fairly long segment of thrombosis, she is symptomatic, and the proximal portion of the clot is high up in the arm in light of her stage 4 lung ca she is at risk of extension of this clot to be safe will use anticoagulation for 4-6 weeks will use Eliquis 5mg BID to start could consider 2.5mg BID at a later date (7) Rhinovirus infection: Plan: tested + for such earlier this week likely a big contributor of her presentation no complicating bacterial process found thus far (8) Morbid obesity with BMI of 40.0-44.9, adult: Plan: BMI 40.9 (9) Tachycardia: Plan: likely 2nd to sepsis +/- dehydration TSH wnl not anemic no significant pain or anxiety to explain the tachycardia simply follow (10) Hyponatremia: Plan: 137 on 07/29 132 on 07/30 today 131 she was volume contracted yesterday upon admission some of today's level is false due to high glucose she is drinking fluids will hold off on additional IVF repeat BMP am Plan updated at bedside obtain PT eval while here Admission and Anticipated Discharge Date Admission Date: July 30, 2024 Subjective patient resting in bed c/o right arm swelling she noticed it at home recently (few days ago) but got markedly worse overnight and into today the right hand in particularly has severe swelling she did have an IV site in the right antecubital region but it was pulled yesterday evening minimal swelling left arm has some sneezing/nasal symptoms scant cough no dyspnea just very tired having nausea did have emesis yesterday but none today tolerating her meals thus far Review of Systems Review of Systems: gen - no fevers or chills today cv - no chest pain pulm - no wheezing, no dyspnea GI - no pain Physical Exam Physical Exam: gen - obese, NAD, resting comfortably in bed, pleasant mouth - MMM neck - no JVD heart - tachy, s1 s2, no murmur lungs - CTA b/l, no rales, no wheezing abd - soft NT ND BS+ extremities - right arm - swelling present from about the antecubital region down to the right hand; right hand with diffuse swelling; no joint synovitis; cap refill all fingers right hand <2 sec; radial pulse 2+ on right; minimal swelling left hand; feet with 2+ pulses, no edema of feet skin - no rash Results & Data Results & Data Vital Signs (Past 12 Hours) Vital Signs Temp Pulse Pulse Resp BP BP Pulse Ox 07/31/24 11:13 37.2 C 120 H 14 112/72 98 07/31/24 10:00 108 H 07/31/24 08:00 36.9 C 119 H 15 118/79 96 07/31/24 03:07 37.0 C 118 H 18 103/66 93 07/31/24 01:55 114 H O2 Del Method 07/31/24 11:13 Room Air 07/31/24 10:00 07/31/24 08:00 Room Air 07/31/24 03:07 Room Air 07/31/24 01:55 Laboratory Results Laboratory Results - last 24 hr 07/31/24 07/31/24 07/31/24 07:08 09:21 11:52 WBC 15.43 H RBC 4.79 Hgb 13.9 Hct 41.5 MCV 86.6 MCH 29.0 MCHC 33.5 RDW Std Deviation 44.6 RDW Coeff of Mariann 14.0 Plt Count 260 MPV 10.5 Immature Gran % (Auto) 1.4 Neut % (Auto) 70.1 Lymph % (Auto) 18.1 [place] % (Auto) 6.5 Eos % (Auto) 3.2 Baso % (Auto) 0.7 Neut # (Auto) 10.81 H Lymph # (Auto) 2.80 [place] # (Auto) 1.00 H Eos # (Auto) 0.50 Baso # (Auto) 0.11 Immature Gran # (Auto) 0.21 H Sodium 131 L Potassium 4.1 Chloride 104 Carbon Dioxide 21 Anion Gap 6 BUN 32 H Creatinine 1.19 Est Cr Clr Drug Dosing 64.1 eGFR 54.00 BUN/Creatinine Ratio 26.9 H Glucose 241 H POC Glucose 172 H 279 H Calcium 9.1 Magnesium 1.6 L Random Cortisol 22.35 07/31/24 07/31/24 16:36 20:00 WBC RBC Hgb Hct MCV MCH MCHC RDW Std Deviation RDW Coeff of Mariann Plt Count MPV Immature Gran % (Auto) Neut % (Auto) Lymph % (Auto) [place] % (Auto) Eos % (Auto) Baso % (Auto) Neut # (Auto) Lymph # (Auto) [place] # (Auto) Eos # (Auto) Baso # (Auto) Immature Gran # (Auto) Sodium Potassium Chloride Carbon Dioxide Anion Gap BUN Creatinine Est Cr Clr Drug Dosing eGFR BUN/Creatinine Ratio Glucose POC Glucose 176 H 173 H Calcium Magnesium Random Cortisol Diagnostic Findings Chest X-Ray 07/31/24 08:19 XR chest 2V PA/lateral HISTORY: 54 years-old Female sepsis, rhinovirus+; r/o pneumonia COMPARISON: CTA chest 07/30/2024 TECHNIQUE: PA and lateral views of the chest FINDINGS: Cardiac silhouette is normal in size. Left apical opacity redemonstrated. No pneumothorax, pleural effusion or overt pulmonary edema. Bones appear grossly intact. Unchanged mild left basilar atelectasis versus scarring with left hemidiaphragmatic elevation. Benign pneumatosis of the splenic flexure. Cholecystectomy. IMPRESSION: 1. No acute process of the chest. 2. Ill-defined opacity of the left lung apex is again noted, better seen on yesterday's CTA of the chest. 3. Benign pneumatosis of the splenic flexure redemonstrated. ACT 112: Negative or not required by law. The above report was generated using voice recognition software. It may contain grammatical, syntax or spelling errors. Electronically signed by: Kamran Collado M.D. 07/31/2024 10:24 AM Venous Doppler Study 07/31/24 11:25 ULTRASOUND RIGHT UPPER EXTREMITY VENOUS CLINICAL HISTORY: Acute pain and swelling of the right upper extremity. COMPARISON STUDY: None. TECHNIQUE: Real-time, grayscale, and color Doppler sonography of the deep veins of the right upper extremity is performed. Compression and augmentation were utilized. FINDINGS: No deep venous thrombus identified. Thrombus noted within the cephalic vein of the upper arm, antecubital fossa and forearm extending for a length of 8 cm, this thrombus is predominantly occlusive. IMPRESSION: 1. No DVT. 2. Long segment superficial venous thrombus as above. ACT 112: Negative or not required by law. Electronically signed by: Kamran Collado M.D. 07/31/2024 1:55 PM PG Care Time/CCT Total # of Minutes Spent Total Time Spent with Patient: Total time spent is greater than 50% in coordination of care (as documented) at patient's floor/unit and/or counseling patient: Coding Level of Care Code 14001 SUB INP/OBS CARE 3/50MIN Diagnoses Sepsis A41.9 Viral upper respiratory illness J06.9 BRIGIDO (acute kidney injury) N17.9 Lung cancer, primary, with metastasis from lung to other site C34.90 Nausea & vomiting R11.2 Thrombosis of right cephalic vein I82.611 Rhinovirus infection B34.8 Morbid obesity with BMI of 40.0-44.9, adult E66.01; Z68.41 Tachycardia R00.0 Hyponatremia E87.1
[2024-07-31] MEDS: FAMOTIDINE 20MG IV PUSH 20 MG/5 ML SYR IV STA (12:41)
[2024-07-31] MEDS: INSULIN ASPART PER UNIT CHARGE SC SCH (13:40)
--- NOTE | 2024-07-31 13:57 | Ultrasound Report ---
ULTRASOUND RIGHT UPPER EXTREMITY VENOUS CLINICAL HISTORY: Acute pain and swelling of the right upper extremity. COMPARISON STUDY: None. TECHNIQUE: Real-time, grayscale, and color Doppler sonography of the deep veins of the right upper ex tremity is performed. Compression and augmentation were utilized. FINDINGS: No deep venous thrombus identified. Thrombus noted within the cephalic vein of the upper ar m, antecubital fossa and forearm extending for a length of 8 cm, this thrombus is predominantly occlu sive. IMPRESSION: 1. No DVT. 2. Long segment superficial venous thrombus as above. ACT 112: Negative or not required by law. Electronically signed by: Kamran Collado M.D. 07/31/2024 1:55 PM
[2024-07-31] MEDS ORDERED: INSULIN ASPART PER UNIT CHARGE SC SCH (16:30)
[2024-07-31] MEDS: ONDANSETRON INJ 2 MG/ML 2 ML VIAL IV STA (16:40)
[2024-07-31] MEDS: APIXABAN 5 MG TABLET PO SCH (20:02)
--- OUTSIDE RECORDS SUMMARY | 2024-07-31 22:48 | External Medical Summary | Continuity of Care Document ---
Author Name Unknown Organization [address] Address [address] [place] [id number] Care Team Providers Care Neuropsychology Director Name Role Phone Eva Latif Primary Care [email or web address] [phone] [id number] Date(s): 07/27/24 - 07/27/[address], [facility] [address] [place] [address] [place] [phone] Encounter Diagnosis Body mass index [BMI] 36.0-36.9, adult(Discharge Diagnosis) - 07/27/24 Fever(Discharge Diagnosis) - 07/27/24 Discharge Disposition: Home or Self Care Attending Physician: Shilpa Ingram DO, Mariana Annette Referring Physician: Shilpa Ingram DO, Mariana Annette Allergies, Adverse Reactions, Alerts Substance Criticality Severity Reaction Reaction Severity Status codeine-guaifenesin affects vision Active penicillins hives Active Assessment and Plan Extracted from: Title:Office Visit Note Author:Shilpa Ingram DO, Mariana Annette Date:07/27/24 1.Fever Because pt is immunocompromised, will treat with doxycycline 100mg bid for 7 days Discussed return and ED precautions Immunizations Given and Recorded Vaccine Date Status Refusal Reason influenza virus vaccine, inactivated 07/03/23 Give n influenza virus vaccine, inactivated 09/23/19 Give n influenza virus vaccine, inactivated 1 09/22/18 Gi gypsy zoster vaccine, inactivated 2 05/29/23 Given zoster vaccine, inactivated 3 03/27/23 Given pneumococcal 20-valent conjugate vaccine 4 03/06/23 Given SARS-CoV-2 (COVID-19) mRNA-1273 vaccine 5 12/30/20 Recorded SARS-CoV-2 (COVID-19) mRNA-1273 vaccine 6 12/02/20 Recorded tetanus/diphtheria/pertuss, acel (Tdap) 7 01/03/15 Recorded tetanus/diphtheria/pertuss, acel (Tdap) 09/09/13 R ecorded tetanus toxoids-diphtheria, Td (Adult) 8 08/01/98 Recorded 1Early/Late Reason: Other : rooming other patients 2Result Comment: NJ75B 04.29.24 3Result Comment: America Chavarria Rn [id number] 03/21/25 4Result Comment: Citlalli Mccabe Ma 5Result Comment: 2022-05-22: Historical information-source unspecified 6Result Comment: 2022-05-22: Historical information-source unspecified 7Result Comment: 2022-05-22: Historical information-source unspecified 8Result Comment: 2022-05-22: Historical information-source unspecified Medications Albuterol (Eqv-Proventil HFA) 90 mcg/inh inhalation aerosol Start: 04/29/24 1:24:00 PM EDT, 2 puff, inhaled, q6h, Disp# 6.7 g, Refills: 1, Pharmacy: [facility] #[id number] Start Date: 04/29/24 Status: Ordered Aleve Start: 09/11/18 7:55:00 AM EST Start Date: 09/11/18 Status: Ordered Asmanex HFA 100 mcg/inh inhalation aerosol Start: 04/29/24 1:25:00 PM EDT, 2 inh, inhaled, bid, Disp# 13 g, Refills: 3, Pharmacy: [facility] #[id number] Start Date: 04/29/24 Status: Ordered Benadryl Start: 07/27/24 10:09:00 AM EST Start Date: 07/27/24 Status: Ordered doxycycline hyclate 100 mg oral tablet Start: 07/27/24 10:42:00 AM EST, 1 tab, PO, bid, Disp# 14 tab, Pharmacy: [facility] #[id number] Start Date: 07/27/24 Stop Date: 08/03/24 Status: Ordered Keytruda 25 mg/mL intravenous solution Start: 05/22/22 4:08:00 PM EDT Start Date: 05/22/22 Status: Ordered Motrin 800 mg oral tablet Start: 09/11/18 8:42:00 AM EST, 1 tab, PO, tid, Disp# 60 tab, Refills: 0, PRN: as needed for pain, Pharmacy: [facility] Start Date: 09/11/18 Status: Ordered Mucinex 600 mg oral tablet, extended release Start: 07/27/24 10:08:00 AM EST, 1 tab, PO, q12h Start Date: 07/27/24 Status: Ordered Unisom Start: 11/23/20 10:54:00 AM EDT Start Date: 11/23/20 Status: Ordered unknown medication Start: 02/25/24 2:14:00 PM EDT, eye vitamins Start Date: 02/25/24 Status: Ordered Mental Status 07/27/24 Barriers to Learning one year None evide nt Mandatory Health Literacy Documentation Yes Health Literacy Communication Barriers N ever Primary Language [place] Problem List Condition Confirmation Course Effective Dates Status Health St atus Informant Low HDL (under 40) Confirmed Active History of kidney stones Confirmed Active Lung cancer Confirmed Active Diagnosis Diagnosis Type Effective Dates Health Status Cl inical Service Informant Body mass index [BMI] 36.0-36.9, adult Discharge Diagnosis 07/27/24 Non-Specified Fever Discharge Diagnosis 07/27/24 Non-Specified Procedures Procedure Date Related Diagnosis Body Site Status Uterine polypectomy via hysteroscopy 08/18/21 Completed Cholecystectomy 1 07/11/21 Complet ed US abdominal scan 2 06/15/21 Compl eted Mammogram - screening 3 10/16/19 C ompleted Ultrasound 4 10/08/19 Completed Colonoscopy 5 09/04/19 Completed Lithotripsy 6 07/10/19 Completed Lumpectomy of left breast [address] Dave Small Dx: Cholelithiasis 2No evidence for acute cholecystitis. 4mm echogenic focus along the gallbladder wall which favors a small gallstone. No biliary ductal dilatation. 5mm right renal calculus. 3IMPRESSION: No mammographic evidence of malignancy. 1 year screening is recommended 4IMPRESSION: 1) Multiple uterine fibroids. The largest right fundal fibroid measuring 2.5 cm. The second largestis a left fundal fibroid measuring 2.4 cm 2) 11 mm endometrium which appear hypervascular. The appearance appears abnormal given the history that this patient is postmenopausal. Clinical correlation and follow up is advocated 5COLO to cecum. redundant colon, 6 mm polyp HF cold snared, submucosal cystic area DC---bx 6LEFT URETERAL EXTRACORPOREAL SHOCK WAVE LITHOTRIPSY 7calcium Vital Signs Most recent to oldest [Reference Range]: 1 Height 166.5 cm (07/27/24 10:10 AM) Patient Weight 102.3 kg (07/27/24 10:10 AM) Body Mass Index 36.9 kg/m2 (07/27/24 10:10 AM) Temperature [36.5-37.9 DegC] 36.4 DegC *LOW* (07/27/24 10:10 AM) Heart Rate 79 bpm (07/27/24 10:10 AM) Respiratory Rate 16 br/min (07/27/24 10:10 AM) Blood Pressure 106/80mmHg (07/27/24 10:10 AM) Cuff Pulse Pressure 26 mmHg (07/27/24 10:10 AM) Social History Social History Type Response Smoking Status Never smoked cigaret kylah Sex Female Sex Representation Female (finding) FCM Outpt Note * Shilpa Ingram DO, Mariana Annette: PERFORM Event Display: FCM Outpt Note Authored Date: Chief Complaint jul 22 symptoms from scratchy throat- sore throat, stomach ache, diarrhea, runny nose. last feversat 101.2 this am 99.2 History of Present Illness Not feeling well Initially had scratchy throat, runny nose, abd pain, diarrhea, headache Endorses fever of 101.2 on saturday,she started taking tylenol andibuprofen, [place] mucinexDM had a cough for 1 day, some sinus congestion Physical Exam Vitals & Measurements T:36.4C HR:79(Monitored) RR:16 BP:106/80 SpO2:96% HT:166.5cm WT:102.300kg(Dosing) WT:102.3kg BMI:36.9 PHQ2 Data(Data Documented on:07/27/2024 10:10) Emotional health assessment NEGATIVE General: _Alert and oriented, No acute distress HEENT: _ Normocephalic, TM clear, Nl gross hearing, moist oral mucosa _ Cardiovascular: _tachycardic, Regular rhythm, No murmur, No gallop. Respiratory: _Lungs are clear to auscultation, Respirations are non-labored, Breath sounds are equal Gastrointestinal: _Soft, mild diffuse tender, Non-distended Integumentary: _Warm, Dry, [place]. Assessment/Plan 1.Fever Because pt is immunocompromised, will treat with doxycycline 100mg bid for 7 days Discussed return and ED precautions Attestation Time spent: Pre-visit planning: _3 Iasm-[id number] visit: _18 Post-visit (orders/documentation/coordination of care):4 Total visit time: _25 Problem List/Past Medical History Ongoing History of kidney stones Low HDL (under 40) Lung cancer Procedure/Surgical History Uterine polypectomy via hysteroscopy| Service Date: 08/18/2021holecystectomy| Service Date: 07/11/2021US abdominal scan| Service Date: 06/15/2021Mammogram - screening| Service Date: 10/16Ultrasound| Service Date: 10/08/2019Colonoscopy| Service Date: 09/04/2019Lithotripsy|Service Date: 07/10/2019Lumpectomy of left breast| Service Date: 2008 Medications albuterol(Albuterol (Eqv-Proventil HFA) 90 mcg/inh inhalation aerosol), 2 puff, inhaled, q6h, 1 refills diphenhydrAMINE(Benadryl) doxycycline(doxycycline hyclate 100 mg oral tablet), 100 mg= 1 tab, PO, bid doxylamine(Unisom) guaiFENesin(Mucinex 600 mg oral tablet, extended release), 600 mg= 1 tab, PO, q12h ibuprofen(Motrin 800 mg oral tablet), 800 mg= 1 tab, PO, tid, PRN mometasone(Asmanex HFA 100 mcg/inh inhalation aerosol), 2 inh, inhaled, bid, 3 refills naproxen(Aleve) pembrolizumab(Keytruda 25 mg/mL intravenous solution) unknown medication Allergies codeine-guaifenesinaffects vision penicillinshives Social History Smoking Status Never smoked cigarettes Alcohol - Denies Alcohol Use Employment/School - Low Risk Substance Abuse - No Risk Tobacco - Denies Tobacco Use Family History Cancer: MGM and PGM. Diabetes mellitus: Father and Brother. Glaucoma: PGM. Hypertension: Mother. Health Status Family Member(s) Immunizations Vaccine Date Status influenza virus vaccine, inactivated 07/03/2023 Given zoster vaccine, inactivated 05/29/2023 Given Comments : NJ75B 8.21.24 zoster vaccine, inactivated 03/27/2023 Given Comments : America Chavarria Rn [id number] 03/21/25 pneumococcal 20-valent conjugate vaccine 03/06/2023 Given Comments : Citlalli Mccabe Ma SARS-CoV-2 (COVID-19) mRNA-1273 vaccine 12/30/2020 Recorded Comments : 2022-05-22: Historical information-source unspecified SARS-CoV-2 (COVID-19) mRNA-1273 vaccine 12/02/2020 Recorded Comments : 2022-05-22: Historical information-source unspecified influenza virus vaccine, inactivated 09/23/2019 Given influenza virus vaccine, inactivated 09/22/2018 Given Comments : Other : rooming other patients tetanus/diphtheria/pertuss, acel (Tdap) 01/03/2015 Recorded Comments : 2022-05-22: Historical information-source unspecified tetanus/diphtheria/pertuss, acel (Tdap) 2013 Recorded tetanus toxoids-diphtheria, Td (Adult) 08/01/1998 Recorded Comments : 2022-05-22: Historical information-source unspecified Recommendations Health Maintenance Pending(in the next year) OverDue Cervical Cancer Screening due10/04/22and every 3year Adult Influenza Vaccine due03/08/24and every 1year Due Adult COVID-19 Vaccination due07/27/24Unknown Frequency Adult Social Determinants of Health Screening due07/27/24Unknown Frequency Hepatitis C Screening due07/27/24One-time only Due In Future Lipid Screening not due until09/22/24and every 1826day Satisfied(in the past 1 year) Satisfied Body Mass Index on07/27/24.Satisfied by CINDY Oswald Angela Breast Cancer Screening on07/08/24.Satisfied by ASHISH Evans Lynnae Electronic Signature on File Electronically Reviewed/Signed by: Eva Ingram DO Author Signature Dt/Tm:07/27/2024 10:50 AM Department of Family Medicine [facility] Patient Care team information Care Team Personnel Name: Shilpa Ingram DO, Mariana Annette Position: Physician - Family Med Member Role: Primary Care Provider Address: [address] [place] [address] Care Team Related Persons Name: SAMANTHA SOLANO"
[2024-08-01 08:09] LABS: Basophils # (auto) 0.13 K/uL (0.00-0.20); Basophils % (auto) 0.8 %; Eosinophils # (auto) 0.54 K/uL (0.00-0.50); Eosinophils % (auto) 3.2 %; Hematocrit (blood only) 39.9 % (37.0-47.0); Hemoglobin 13.8 g/dl (12.0-16.0); Immature Granulocytes # (auto) 0.32 K/uL (0.01-0.20); Immature Granulocytes % (auto) 1.9 %; Lymphocytes # (auto) 2.63 K/uL (1.20-3.40); Lymphocytes % (auto) 15.8 %; Mean Corpuscular Hemoglobin 29.7 pg (25.0-34.0); Mean Corpuscular Hgb Conc 34.6 g/dL (32.0-36.0); Monocytes # (auto) 1.18 K/uL (0.11-0.59); Monocytes % (auto) 7.1 %; Neutrophils # (auto) 11.87 K/uL (1.40-6.50); Neutrophils % (auto) 71.2 %; Platelet Count 289 K/uL (130-400); RDW Standard Deviation 43.7 fL (36.4-46.3); Red Blood Count 4.64 M/uL (4.20-5.40); White Blood Count 16.67 K/ul (4.8-10.8)
[2024-08-01 08:31] LABS: BUN Creatinine Ratio 36.2 (10-20); Creatinine Clr Calc Pharmacy 72.6 ml/min; Potassium 4.2 mmol/L (3.5-5.1)
[2024-08-01 14:48] LABS: C Reactive Protein 5.89 mg/dl (0-0.5)
--- NOTE | 2024-08-01 15:37 | Ultrasound Report ---
INDICATION: Leg pain. COMPARISON: None available. TECHNIQUE: Multiple longitudinal and transverse sonographic images of the left and right lower extremity were obtained in conjunction with duplex Doppler sonography and serial compression through the left and right common femoral, superficial femoral, popliteal, and where possible visualized proximal calf veins. FINDINGS: Limited visualization of the calf veins secondary to edema. As visualized, the abovementioned veins demonstrate normal compressibility, flow and an appropriate augmentation response where possible. IMPRESSION: Negative for bilateral lower extremity DVT, as visualized. Electronically signed by Alexandru Jaimes 08-01-2024 3:29 PM
[2024-08-01] MEDS: PANTOprazole 40 MG TAB PO SCH (18:04)
[2024-08-01 19:43] LABS: Procalcitonin 0.56 ng/ml (0-0.5)
[2024-08-01 20:08] LABS: Lyme Screen Rflx Confirmation Negative (Negative)
--- NOTE | 2024-08-01 21:05 | Hospitalist Progress Note ---
Date of Service August 01, 2024 Assessment & Plan (1) Sepsis: Plan: presumed 2nd to rhinovirus/enterovirus no bacterial source thus far found no other pathology found to date blood cx's still negative CTA chest/abd/pelvis without source for sepsis a repeat cxr was again negative cortisol level wnl ua on 07/29 and 07/30 not suggestive of UTI, and urine cx from 07/29 negative no evidence of septic phlebitis of right arm lyme screen neg anaplasmosis smear neg procalcitonin still minimally elevated - significance uncertain cont cefepime/doxy to cover for possible bacterial superinfection while awaiting cultures (2) Viral upper respiratory illness: Plan: Entero-/rhinovirus (+) on 07/29 Droplet isolation precautions Supportive care no evidence of any complicating bacterial superinfection (3) BRIGIDO (acute kidney injury): Plan: presenting Cr 1.3 Cr 1 today IV fluids are off repeat BMP am (4) Lung cancer, primary, with metastasis from lung to other site: Plan: On Keytruda [id number] Follows with Dr. Le, [facility] garcia-CT this admission without signs of worsening metastatic disease (5) Nausea & vomiting: Plan: IV antiemetics as needed likely 2nd to enterovirus/rhinovirus added a daily PPI if nausea and/or vomiting persist then repeat CT a/p (6) Thrombosis of right cephalic vein: Plan: this explains, at least in part, her right arm/hand swelling it is a fairly long segment of thrombosis, she is symptomatic, and the proximal portion of the clot is high up in the arm in light of her stage 4 lung ca she is at risk of extension of this clot to be safe will use anticoagulation for 4-6 weeks will use Eliquis 5mg BID to start could consider 2.5mg BID at a later date also obtained dopplers of b/l legs today due to swelling -- negative for DVT in light of the new onset edema will obtain echo in am to exclude a new cardiomyopathy, etc. (7) Rhinovirus infection: Plan: tested + for such earlier this week likely a big contributor of her presentation no complicating bacterial process found thus far (8) Morbid obesity with BMI of 40.0-44.9, adult: Plan: BMI 40.9 (9) Tachycardia: Plan: likely 2nd to sepsis although no bacterial source found TSH wnl not anemic no significant pain or anxiety to explain the tachycardia obtain echo in am (10) Hyponatremia: Plan: 137 on 07/29 132 on 07/30 today 134 she was volume contracted upon admission now showing signs of mild volume overload repeat BMP am Plan updated by phone this evening obtain PT fide while here Admission and Anticipated Discharge Date Admission Date: July 30, 2024 Subjective R arm swelling improved has noted new swelling in both legs but denies pain no headache no significant nasal congestion no cough or dyspnea still tired mild nausea today but no vomiting no abd pain "feels a little better" overall denies rash denies any other new symptoms tele - ongoing sinus tach Review of Systems Review of Systems: gen - no fevers or chills cv - no chest pain GI - no diarrhea; 1 loose stool today musculo - denies joint pains Physical Exam Physical Exam: gen - obese, NAD, nontoxic; looks better today mouth - MMM, no oral lesions or thrush neck - no JVD heart - tachy, s1 s2, no murmur lungs - mild fine b/l basilar rales, no wheezing, no increased work of breathing abd - soft NT ND BS+ extremities - right arm - swelling improved right hand; scant swelling left hand; 1+ edema b/l shins & ankles vascular - pulses b/l feet 2+ skin - no rash Results & Data Results & Data Vital Signs (Past 12 Hours) Vital Signs Temp Pulse Resp BP BP Pulse Ox O2 Del Method 08/01/24 20:51 36.4 C L 88 15 111/73 98 Room Air 08/01/24 15:34 37.3 C 111 H 19 117/69 96 Room Air 08/01/24 10:35 36.8 C 105 H 19 110/74 96 Room Air Laboratory Results Laboratory Results - last 24 hr 08/01/24 08/01/24 08/01/24 07:00 07:35 11:37 WBC 16.67 H RBC 4.64 Hgb 13.8 Hct 39.9 MCV 86.0 MCH 29.7 MCHC 34.6 RDW Std Deviation 43.7 RDW Coeff of Mariann 14.0 Plt Count 289 MPV 11.0 Immature Gran % (Auto) 1.9 Neut % (Auto) 71.2 Lymph % (Auto) 15.8 [place] % (Auto) 7.1 Eos % (Auto) 3.2 Baso % (Auto) 0.8 Neut # (Auto) 11.87 H Lymph # (Auto) 2.63 [place] # (Auto) 1.18 H Eos # (Auto) 0.54 H Baso # (Auto) 0.13 Immature Gran # (Auto) 0.32 H ESR Sodium 134 L Potassium 4.2 Chloride 105 Carbon Dioxide 22 Anion Gap 7 BUN 38 H Creatinine 1.05 Est Cr Clr Drug Dosing 72.6 eGFR 62.75 BUN/Creatinine Ratio 36.2 H Glucose 176 H POC Glucose 193 H 184 H Calcium 9.0 Magnesium 2.0 C-Reactive Protein 5.89 H Lipase 22 Procalcitonin Anaplasma Smear Lyme Disease Screen 08/01/24 08/01/24 08/01/24 14:23 15:53 19:07 WBC RBC Hgb Hct MCV MCH MCHC RDW Std Deviation RDW Coeff of Mariann Plt Count MPV Immature Gran % (Auto) Neut % (Auto) Lymph % (Auto) [place] % (Auto) Eos % (Auto) Baso % (Auto) Neut # (Auto) Lymph # (Auto) [place] # (Auto) Eos # (Auto) Baso # (Auto) Immature Gran # (Auto) ESR 25 Sodium Potassium Chloride Carbon Dioxide Anion Gap BUN Creatinine Est Cr Clr Drug Dosing eGFR BUN/Creatinine Ratio Glucose POC Glucose 173 H Calcium Magnesium C-Reactive Protein Lipase Procalcitonin 0.56 H Anaplasma Smear See Comment Lyme Disease Screen Negative 08/01/24 20:18 WBC RBC Hgb Hct MCV MCH MCHC RDW Std Deviation RDW Coeff of Mariann Plt Count MPV Immature Gran % (Auto) Neut % (Auto) Lymph % (Auto) [place] % (Auto) Eos % (Auto) Baso % (Auto) Neut # (Auto) Lymph # (Auto) [place] # (Auto) Eos # (Auto) Baso # (Auto) Immature Gran # (Auto) ESR Sodium Potassium Chloride Carbon Dioxide Anion Gap BUN Creatinine Est Cr Clr Drug Dosing eGFR BUN/Creatinine Ratio Glucose POC Glucose 160 H Calcium Magnesium C-Reactive Protein Lipase Procalcitonin Anaplasma Smear Lyme Disease Screen Diagnostic Findings Venous Doppler Study 08/01/24 14:22 INDICATION: Leg pain. COMPARISON: None available. TECHNIQUE: Multiple longitudinal and transverse sonographic images of the left and right lower extremity were obtained in conjunction with duplex Doppler sonography and serial compression through the left and right common femoral, superficial femoral, popliteal, and where possible visualized proximal calf veins. FINDINGS: Limited visualization of the calf veins secondary to edema. As visualized, the abovementioned veins demonstrate normal compressibility, flow and an appropriate augmentation response where possible. IMPRESSION: Negative for bilateral lower extremity DVT, as visualized. Electronically signed by Alexandru Jaimes 08-01-2024 3:29 PM Microbiology 07/30/24 12:12 Blood Aerobic Blood Culture - Preliminary No growth in Aerobic bottle after 48 hours. 07/30/24 12:12 Blood Anaerobic Blood Culture - Final 07/30/24 12:06 Blood Aerobic Blood Culture - Preliminary No growth in Aerobic bottle after 48 hours. 07/30/24 12:06 Blood Anaerobic Blood Culture - Preliminary No growth in Anaerobic bottle after 48 hours. PG Care Time/CCT Total # of Minutes Spent Total Time Spent with Patient: Total time spent is greater than 50% in coordination of care (as documented) at patient's floor/unit and/or counseling patient: Coding Level of Care Code 84518 SUB INP/OBS CARE 3/50MIN Diagnoses Sepsis A41.9 Viral upper respiratory illness J06.9 BRIGIDO (acute kidney injury) N17.9 Lung cancer, primary, with metastasis from lung to other site C34.90 Nausea & vomiting R11.2 Thrombosis of right cephalic vein I82.611 Rhinovirus infection B34.8 Morbid obesity with BMI of 40.0-44.9, adult E66.01; Z68.41 Tachycardia R00.0 Hyponatremia E87.1
[2024-08-02] MEDS: PROMETHAZINE 12.5 MG/50.5 ML BAG IV PRN (00:38)
[2024-08-02 06:41] LABS: Basophils # (auto) 0.12 K/uL (0.00-0.20); Basophils % (auto) 0.7 %; Eosinophils # (auto) 1.05 K/uL (0.00-0.50); Eosinophils % (auto) 6.3 %; Hematocrit (blood only) 40.8 % (37.0-47.0); Hemoglobin 13.9 g/dl (12.0-16.0); Immature Granulocytes # (auto) 0.41 K/uL (0.01-0.20); Immature Granulocytes % (auto) 2.5 %; Lymphocytes # (auto) 2.49 K/uL (1.20-3.40); Lymphocytes % (auto) 14.9 %; Mean Corpuscular Hemoglobin 29.3 pg (25.0-34.0); Mean Corpuscular Hgb Conc 34.1 g/dL (32.0-36.0); Mean Corpuscular Volume 85.9 fL (80.0-100.0); Mean Platelet Volume 10.4 fL (9.4-12.4); Monocytes # (auto) 1.32 K/uL (0.11-0.59); Monocytes % (auto) 7.9 %; Neutrophils # (auto) 11.31 K/uL (1.40-6.50); Neutrophils % (auto) 67.7 %; Platelet Count 295 K/uL (130-400); RDW Coefficient of Variation 13.9 % (11.5-14.5); RDW Standard Deviation 43.9 fL (36.4-46.3); Red Blood Count 4.75 M/uL (4.20-5.40)
[2024-08-02 07:00] LABS: BUN Creatinine Ratio 39.8 (10-20); Calcium 8.9 mg/dl (8.6-10.3); Creatinine Clr Calc Pharmacy 77.8 ml/min; Potassium 4.3 mmol/L (3.5-5.1)
[2024-08-02] MEDS: FUROSEMIDE INJ 20 MG/2 ML VIAL IV ONE (08:51)
--- NOTE | 2024-08-02 10:54 | XCELERA ---
[id number]
--- NOTE | 2024-08-02 14:58 | XRay Report ---
EXAM: Radiographs of the Chest 2 Views INDICATION: Basilar rales. TECHNIQUE: Frontal and lateral views of the chest. COMPARISON: 07/31/2024 FINDINGS: Lungs and pleural spaces: Stable mild left basilar pleural and parenchymal scarring. No consolidation or pulmonary edema. No pleural effusion or pneumothorax. Heart: Normal shape and configuration. Mediastinum: Normal contour. Bones/joints: No fracture, erosion or dislocation. IMPRESSION: Stable chronic changes. No acute disease. ACT 112: Negative or not required by law. Electronically signed by Elizabeth Fisher 08-02-2024 2:58 PM
--- NOTE | 2024-08-02 20:32 | Hospitalist Progress Note ---
Date of Service August 02, 2024 Assessment & Plan (1) Sepsis: Plan: only testing to date that has shown a source was her BioFire which was + for rhinovirus/enterovirus no bacterial source thus far found despite extensive work-up to date including [facility] (Chest/abd/pelvis), multiple CXRs, u/a, urine cx, blood cx's, lyme/anaplasmosis screens, etc. does have cephalic vein thrombus b/l but no evidence of septic thrombophlebitis clinically on exam LE dopplers neg for DVT blood cx's negative cortisol level wnl ua on 07/29 and 07/30 not suggestive of UTI, and urine cx from 07/29 negative procalcitonin x 2 scantly elevated - significance uncertain has had persistent leukocytosis despite broad-spectrum IV abx including cefepime/doxy (MRSA coverage was deferred from start of admission - she has no indwelling port/catheter, no hardware, no skin issues/cellulitis, and MRSA [employer] swab was negative) will repeat a full CBC in the am with diff along with CRP & peripheral smear strongly consider formal ID consult and formal heme/onc consult will reach out to Dr Le today to discuss her case (2) Viral upper respiratory illness: Plan: Entero-/rhinovirus (+) on 07/29 Droplet isolation precautions Supportive care no evidence of any complicating bacterial superinfection see discussion in #1 above (3) BRIGIDO (acute kidney injury): Plan: presenting Cr 1.3 Cr 0.9 today received copious IV fluids day #1 of admission IV fluids are off repeat BMP am (4) Lung cancer, primary, with metastasis from lung to other site: Plan: On Keytruda [id number] Follows with Dr. Le, [facility] this admission without signs of worsening metastatic disease (5) Nausea & vomiting: Plan: IV antiemetics as needed likely 2nd to enterovirus/rhinovirus added a daily PPI if nausea and/or vomiting persist then repeat CT a/p (6) Thrombosis of right cephalic vein: Plan: this explains, at least in part, her right arm/hand swelling it is a fairly long segment of thrombosis, she is symptomatic, and the proximal portion of the clot is high up in the arm in light of her stage 4 lung ca she is at risk of extension of this clot to be safe will use anticoagulation for 4-6 weeks will use Eliquis 2.5mg BID also obtained dopplers of b/l legs due to swelling -- negative for DVT; LUE doppler obtained today - also has cephalic vein thrombus in light of the new onset edema obtained echo - EF hyperdynamic; BNP wnl (7) Rhinovirus infection: Plan: tested + for such earlier this week likely a big contributor of her presentation but at this point does not explain ongoing leukocytosis, high CRP, edema, etc. no complicating bacterial process found thus far (8) Morbid obesity with BMI of 40.0-44.9, adult: Plan: BMI 40.9 (9) Tachycardia: Plan: likely 2nd to sepsis although no bacterial source found would be odd for rhinovirus/viral sepsis to cause the tachycardia TSH wnl not anemic no significant pain or anxiety to explain the tachycardia no PEs on recent chest CTA echo with hyperdynamic LV function (c/w her tachycardia) cont to monitor (10) Hyponatremia: Plan: 134 again today stable she was volume contracted upon admission now showing signs of mild volume overload lasix 20mg IV x 1 as the edema is uncomfortable for her repeat BMP am (11) Leukocytosis: Plan: uncertain etiology presumed to be 2nd to sepsis but HR should be improving at this point see discussion in #1 above peripheral smear in am repeat crp in am repeat CBC w/ diff in am no recent steroid use per pharmacy records or pt's recollection (12) Eosinophilia: Plan: first seen on 07/13/24 CBC also her eosinophils were high on 07/29 and then slowly decreased next few days no evidence of allergic rxn no parasitic infections due to cancer? other? obtain peripheral smear in am Plan updated extensively at bedside this am DVT Proph - Eliquis 2.5mg BID Admission and Anticipated Discharge Date Admission Date: July 30, 2024 Subjective patient was out walking the hallways with her prior to my visit had no dizziness or lightheadedness no dyspnea on exertion felt a little weak on the walk only denies any new symptoms specifically denies headache, URI symptoms, cough, rash, joint pains/arthralgias, myalgias no further n/v tolerating her meals - appetite has improved no abd pain or chest pain does c/o edema in b/l legs and both arms although right arm/hand edema is improved Review of Systems Review of Systems: gen - no fevers or chills cv - no orthopnea pulm - no cough, no dyspnea, no DOBSON GI - no abd pain - no dysuria Physical Exam Physical Exam: gen - obese, NAD, looks good today; nontoxic mouth - MMM, no oral lesions or thrush neck - no JVD heart - tachy, s1 s2, no murmur lungs - mild fine b/l basilar rales, no wheezing, no increased work of breathing abd - soft NT ND BS+ extremities - right arm - swelling improved right hand; mild swelling left hand; <1+ edema b/l shins & ankles vascular - pulses b/l feet 2+ skin - no rash musculo - no joint effusions or synovitis of any small/large joint x 4 exts back - no tenderness to palpation along the entire c-spine/t-spine/l-spine Results & Data Results & Data Vital Signs (Past 12 Hours) Vital Signs Temp Pulse Pulse Resp BP Pulse Ox O2 Del Method 08/02/24 15:14 36.4 C L 119 H 18 113/74 94 Room Air 08/02/24 14:16 111 H 08/02/24 11:06 37.1 C 103 H 20 115/68 93 Room Air Laboratory Results Laboratory Results - last 48 hr 08/01/24 08/01/24 08/01/24 07:00 11:37 14:23 WBC 16.67 H RBC 4.64 Hgb 13.8 Hct 39.9 MCV 86.0 MCH 29.7 MCHC 34.6 RDW Std Deviation 43.7 RDW Coeff of Mariann 14.0 Plt Count 289 MPV 11.0 Immature Gran % (Auto) 1.9 Neut % (Auto) 71.2 Lymph % (Auto) 15.8 [place] % (Auto) 7.1 Eos % (Auto) 3.2 Baso % (Auto) 0.8 Neut # (Auto) 11.87 H Lymph # (Auto) 2.63 [place] # (Auto) 1.18 H Eos # (Auto) 0.54 H Baso # (Auto) 0.13 Immature Gran # (Auto) 0.32 H Absolute Nucleated RBC Nucleated RBC % (auto) Peripher Smr Path Cons ESR 25 Sodium 134 L Potassium 4.2 Chloride 105 Carbon Dioxide 22 Anion Gap 7 BUN 38 H Creatinine 1.05 Est Cr Clr Drug Dosing 72.6 eGFR 62.75 BUN/Creatinine Ratio 36.2 H Glucose 176 H POC Glucose 184 H Calcium 9.0 Magnesium 2.0 Total Bilirubin AST ALT Alkaline Phosphatase C-Reactive Protein 5.89 H B-Natriuretic Peptide Total Protein Albumin Globulin Albumin/Globulin Ratio Lipase 22 Procalcitonin Anaplasma Smear Lyme Disease Screen 08/01/24 08/01/24 08/01/24 15:53 19:07 20:18 WBC RBC Hgb Hct MCV MCH MCHC RDW Std Deviation RDW Coeff of Mariann Plt Count MPV Immature Gran % (Auto) Neut % (Auto) Lymph % (Auto) [place] % (Auto) Eos % (Auto) Baso % (Auto) Neut # (Auto) Lymph # (Auto) [place] # (Auto) Eos # (Auto) Baso # (Auto) Immature Gran # (Auto) Absolute Nucleated RBC Nucleated RBC % (auto) Peripher Smr Path Cons ESR Sodium Potassium Chloride Carbon Dioxide Anion Gap BUN Creatinine Est Cr Clr Drug Dosing eGFR BUN/Creatinine Ratio Glucose POC Glucose 173 H 160 H Calcium Magnesium Total Bilirubin AST ALT Alkaline Phosphatase C-Reactive Protein B-Natriuretic Peptide Total Protein Albumin Globulin Albumin/Globulin Ratio Lipase Procalcitonin 0.56 H Anaplasma Smear See Comment Lyme Disease Screen Negative 08/02/24 08/02/24 08/02/24 05:24 07:05 11:05 WBC 16.70 H RBC 4.75 Hgb 13.9 Hct 40.8 MCV 85.9 MCH 29.3 MCHC 34.1 RDW Std Deviation 43.9 RDW Coeff of Mariann 13.9 Plt Count 295 MPV 10.4 Immature Gran % (Auto) 2.5 Neut % (Auto) 67.7 Lymph % (Auto) 14.9 [place] % (Auto) 7.9 Eos % (Auto) 6.3 Baso % (Auto) 0.7 Neut # (Auto) 11.31 H Lymph # (Auto) 2.49 [place] # (Auto) 1.32 H Eos # (Auto) 1.05 H Baso # (Auto) 0.12 Immature Gran # (Auto) 0.41 H Absolute Nucleated RBC Nucleated RBC % (auto) Peripher Smr Path Cons ESR Sodium 134 L Potassium 4.3 Chloride 105 Carbon Dioxide 21 Anion Gap 8 BUN 39 H Creatinine 0.98 Est Cr Clr Drug Dosing 77.8 eGFR 68.16 BUN/Creatinine Ratio 39.8 H Glucose 150 H POC Glucose 219 H 191 H Calcium 8.9 Magnesium Total Bilirubin AST ALT Alkaline Phosphatase C-Reactive Protein B-Natriuretic Peptide 19 Total Protein Albumin Globulin Albumin/Globulin Ratio Lipase Procalcitonin Anaplasma Smear Lyme Disease Screen 08/02/24 16:24 WBC RBC Hgb Hct MCV MCH MCHC RDW Std Deviation RDW Coeff of Mariann Plt Count MPV Immature Gran % (Auto) Neut % (Auto) Lymph % (Auto) [place] % (Auto) Eos % (Auto) Baso % (Auto) Neut # (Auto) Lymph # (Auto) [place] # (Auto) Eos # (Auto) Baso # (Auto) Immature Gran # (Auto) Absolute Nucleated RBC Nucleated RBC % (auto) Peripher Smr Path Cons ESR Sodium Potassium Chloride Carbon Dioxide Anion Gap BUN Creatinine Est Cr Clr Drug Dosing eGFR BUN/Creatinine Ratio Glucose POC Glucose 191 H Calcium Magnesium Total Bilirubin AST ALT Alkaline Phosphatase C-Reactive Protein B-Natriuretic Peptide Total Protein Albumin Globulin Albumin/Globulin Ratio Lipase Procalcitonin Anaplasma Smear Lyme Disease Screen Diagnostic Findings Chest X-Ray 08/02/24 13:25 EXAM: Radiographs of the Chest 2 Views INDICATION: Basilar rales. TECHNIQUE: Frontal and lateral views of the chest. COMPARISON: 07/31/2024 FINDINGS: Lungs and pleural spaces: Stable mild left basilar pleural and parenchymal scarring. No consolidation or pulmonary edema. No pleural effusion or pneumothorax. Heart: Normal shape and configuration. Mediastinum: Normal contour. Bones/joints: No fracture, erosion or dislocation. IMPRESSION: Stable chronic changes. No acute disease. ACT 112: Negative or not required by law. Electronically signed by Elizabeth Fisher 08-02-2024 2:58 PM Extremity Venous Study 08/02/24 14:19 Exam(s): US VENOUS LEFT UPPER EXTREMITY EXAM: US Duplex Left Upper Extremity Veins CLINICAL HISTORY: Reason for exam: edema, lung ca, r/o DVT. TECHNIQUE: Real-time duplex ultrasound scan of the left upper extremity veins integrating B-mode two-dimensional vascular structure, Doppler spectral analysis, color flow Doppler imaging and compression. COMPARISON: No relevant prior studies available. FINDINGS: The exam is limited.. Deep veins: There No DVT in the internal jugular, subclavian, axillary, or brachial veins. The veins demonstrate normal color flow, are normally compressible, with normal phasic flow and/or augmentation response. Superficial veins: There is superficial thrombus noted in the cephalic vein in the region of a central line catheter. Soft tissues: No acute findings. IMPRESSION: Limited exam. No evidence of deep venous thrombosis. There is superficial thrombus noted in the cephalic vein in the region of a central line catheter. Electronically signed by: Fabián Hill MD 08/02/24 23:10 PM PG Care Time/CCT Total # of Minutes Spent Total Time Spent with Patient: Total time spent is greater than 50% in coordination of care (as documented) at patient's floor/unit and/or counseling patient: Coding Level of Care Code 35192 SUB INP/OBS CARE 3/50MIN Diagnoses Sepsis A41.9 Viral upper respiratory illness J06.9 BRIGIDO (acute kidney injury) N17.9 Lung cancer, primary, with metastasis from lung to other site C34.90 Nausea & vomiting R11.2 Thrombosis of right cephalic vein I82.611 Rhinovirus infection B34.8 Morbid obesity with BMI of 40.0-44.9, adult E66.01; Z68.41 Tachycardia R00.0 Hyponatremia E87.1 Leukocytosis D72.829 Eosinophilia D72.10
[2024-08-02] MEDS: MELATONIN 3 MG TAB PO PRN (20:45)
--- NOTE | 2024-08-02 23:11 | Ultrasound Report ---
Exam(s): US VENOUS LEFT UPPER EXTREMITY EXAM: US Duplex Left Upper Extremity Veins CLINICAL HISTORY: Reason for exam: edema, lung ca, r/o DVT. TECHNIQUE: Real-time duplex ultrasound scan of the left upper extremity veins integrating B-mode two-dimensional vascular structure, Doppler spectral analysis, color flow Doppler imaging and compression. COMPARISON: No relevant prior studies available. FINDINGS: The exam is limited.. Deep veins: There No DVT in the internal jugular, subclavian, axillary, or brachial veins. The veins demonstrate normal color flow, are normally compressible, with normal phasic flow and/or augmentation response. Superficial veins: There is superficial thrombus noted in the cephalic vein in the region of a central line catheter. Soft tissues: No acute findings. IMPRESSION: Limited exam. No evidence of deep venous thrombosis. There is superficial thrombus noted in the cephalic vein in the region of a central line catheter. Electronically signed by: Fabián Hill MD 08/02/24 23:10 PM
[2024-08-03 06:33] LABS: Basophils # (auto) 0.11 K/uL (0.00-0.20); Basophils % (auto) 0.6 %; Eosinophils # (auto) 1.59 K/uL (0.00-0.50); Hematocrit (blood only) 41.4 % (37.0-47.0); Hemoglobin 14.1 g/dl (12.0-16.0); Immature Granulocytes # (auto) 0.64 K/uL (0.01-0.20); Immature Granulocytes % (auto) 3.6 %; Lymphocytes # (auto) 2.54 K/uL (1.20-3.40); Lymphocytes % (auto) 14.3 %; Mean Corpuscular Hemoglobin 29.3 pg (25.0-34.0); Mean Corpuscular Hgb Conc 34.1 g/dL (32.0-36.0); Mean Corpuscular Volume 86.1 fL (80.0-100.0); Mean Platelet Volume 10.7 fL (9.4-12.4); Monocytes # (auto) 1.46 K/uL (0.11-0.59); Monocytes % (auto) 8.2 %; Neutrophils # (auto) 11.41 K/uL (1.40-6.50); Neutrophils % (auto) 64.3 %; Nucleated RBC # (auto) 0.02 K/uL (0.00-0.12); Nucleated RBC % (auto) 0.1 %; Platelet Count 326 K/uL (130-400); RDW Coefficient of Variation 14.1 % (11.5-14.5); Red Blood Count 4.81 M/uL (4.20-5.40); White Blood Count 17.75 K/ul (4.8-10.8)
[2024-08-03 06:46] LABS: Albumin Level 2.6 gm/dl (3.4-5.0); BUN Creatinine Ratio 38.1 (10-20); Bilirubin,Total 0.4 mg/dl (0.2-1.0); C Reactive Protein 6.25 mg/dl (0-0.5); Calcium 9.1 mg/dl (8.6-10.3); Creatinine Clr Calc Pharmacy 72.6 ml/min; Globulin 2.6 gm/dl (2.5-4.0); Potassium 4.3 mmol/L (3.5-5.1); Total Protein 5.2 gm/dl (6.0-8.3)
[2024-08-03] MEDS: APIXABAN 2.5 MG TAB PO SCH (09:08)
[2024-08-03] MEDS: SODIUM CHLORIDE 0.9% 250 ML IV ONE ×2 (09:09→16:06)
--- NOTE | 2024-08-03 09:27 | Oncology Consultation ---
Date of Consultation August 03, 2024 Assessment & Plan (1) Eosinophilia: (2) Leukocytosis: (3) Rhinovirus infection: (4) Thrombosis of right cephalic vein: Plan Patient with history of metastatic lung cancer on maintenance Keytruda admitted for rhinovirus infection, possible sepsis. Labs show leukocytosis predominantly neutrophilic/eosinophilic -Potential causes of leukocytosis include underlying infection, drug hypersensitivity, myeloproliferative neoplasm. Although Keytruda could potentially cause eosinophilia, this is fairly rare and she has been on treatment for more than 3 years which make this less likely. Given bilateral superficial thrombosis, would recommend ruling out myeloproliferative neoplasm/other hematologic malignancy with bone marrow biopsy. Agree with ID consult to also evaluate for possible infection. -In the meantime, would recommend switching from Eliquis to heparin while she is in the hospital. Thank you for this consult. Will continue to follow patient while she is in the hospital. Please feel free to call if you have any other questions. History of Present Illness Reason for Consultation: Leukocytosis with eosinophilia Attending Physician: Peter Castle MD History of Present Illness Ms. Mendieta is a 54-year-old female with history of metastatic lung cancer diagnosed around July, for which she is s/p 4 cycles of chemoimmunotherapy treatment with carboplatin, pemetrexed and Keytruda completed in September, followed by maintenance Keytruda. She last received Keytruda on 07/14/2024. Presented to the ER with upper respiratory tract infection symptoms, fatigue, nausea and vomiting on 07/30/2024. Was found to be positive for entero-/rhinovirus. CT CAP on 07/30/2024 was unremarkable. She was placed on IV antibiotics for possible sepsis. Since admission, was diagnosed with bilateral upper extremity superficial venous thrombosis for which she is currently on prophylactic dose of Eliquis.Hematology was consulted for worsening leukocytosis with white cell count of 17.75 today with elevated ANC of 11.41, eosinophil of 1.59 Allergies Allergy/AdvReac Type Severity Reaction Status Date / Time amoxicillin [From Augmentin] Allergy Severe Hives Unverified 07/22/24 13:40 clavulanic acid Allergy Severe Hives Unverified 07/22/24 13:40 [From Augmentin] codeine AdvReac Intermediate Eye Verified 07/22/24 13:40 problems (if in the sun) Home Medications Medication Instructions Recorded Confirmed Type diphenhydramine HCl 50 mg capsule 50 mg PO HS 11/18/20 07/30/24 History ([employer]) acetaminophen 500 mg capsule 1,000 mg PO Q6H PRN Pain 08/15/21 07/30/24 History oxycodone 5 mg capsule 5 mg PO Q8H PRN Pain 08/15/21 07/30/24 History epinephrine 0.3 mg/0.3 mL 0.3 mg (0.3 mL) IM Q3H PRN 12/30/22 07/30/24 Rx injection, auto-injector (EpiPen anaphylaxis #2 ea 2-Nando) pembrolizumab 50 mg intravenous 50 mg IV .q6wks 12/30/22 07/30/24 History solution ondansetron 4 mg disintegrating 4 mg PO Q6H PRN nausea and 01/17/23 07/30/24 Rx tablet vomiting #14 tabs albuterol sulfate 90 mcg/actuation 2 puffs inhalation 6XD PRN 11/14/23 07/30/24 Rx aerosol inhaler shortness of breath or wheezing #6.7 grams benzonatate 100 mg capsule 100 mg PO TID PRN cough #15 caps 11/14/23 07/30/24 Rx ascorbic acid (vitamin C) 250 mg 250 mg PO DAILY 01/07/24 07/30/24 History tablet zdekdglc-yvg-bfwooe 5 mg-zeaxanth 1 cap PO DAILY 01/07/24 07/30/24 History 1 mg-bilberry 7.5 mg-herbal capsule (Macular Health Formula) zinc gluconate 30 mg tablet 30 mg PO DAILY 01/07/24 07/30/24 History ergocalciferol (vitamin D2) 1,250 1,250 mcg PO .weekly #14 caps 07/10/24 07/30/24 Rx mcg (50,000 unit) capsule budesonide 90 mcg/actuation breath 2 inh inhalation BID PRN sob 07/29/24 07/30/24 History activated powder inhaler (Pulmicort Flexhaler) doxycycline hyclate 100 mg tablet 100 mg PO BID 07/29/24 07/30/24 History mometasone 100 mcg/actuation HFA 2 puff inhalation BID PRN sob 07/29/24 07/30/24 History aerosol inhaler (Asmanex HFA) ondansetron 4 mg disintegrating 4 mg PO Q6H PRN nausea and 07/29/24 07/30/24 Rx tablet vomiting #20 tabs Patient History Medical History Endometrial polyp Lung cancer, primary, with metastasis from lung to other site Started chemo 08/07/21 Contact with and (suspected) exposure to covid-19 COVID positive family members exposure (07/2020) > personal symptoms at time of: Fatigue, sinus infection type symptoms, cough > was not tested/symptoms resolved Hx of pancreatitis Several years ago Kidney stone Hx Surgical History History of dilatation and curettage (08/2021) Hx laparoscopic cholecystectomy (07/11/21) Laparoscopic Cholecystectomy with Cholangiogram with Biopsy of the Omentum and Biopsy of Peritoneal Implant (07/11/21): Grade view 1, Cabezas #2, ETT 7.5 at [facility]. Patient reported dyspnea in recovery room post-operatively. She states improvement with incentive spirometry and possible oxygen supplementation. She states she was discharged home same day without issue. No mention of issues per anesthesia post-op progress note. Hx of colonoscopy Nausea and vomiting after administration of anesthetic agent mild PONV - patch "worked" History of lithotripsy x2 (12/2020, 01/2021) Left ESWL (01/27/21): LMA#4 at [facility] (scope patch used) [place] teeth extracted S/P cystoscopy with ureteral stent placement Family History Grandmother (Maternal) Colorectal cancer Father Diabetes Mother Hypertension Brother Diabetes Grandmother (Paternal) Kidney malignancy Other No family history of adverse response to anesthesia Denies family history of Ovarian cancer Breast cancer Social History Smoking Status: Never smoker Tobacco Type: Cigarettes Second Hand Exposure: No; Do You Dip or Chew Tobacco: No; Hx Alcohol Use: Yes Alcohol type: wine Hx Substance Use: No Preferred Language: Swedish Communication Ability: Effective Visual Impairment: No Limitations Hearing Ability: Normal Online User Experience Strategist Required: No Beliefs That Will Affect Care: None marital status: Current Living Situation: Spouse Current Living Situation Comment: [place] current occupational status: employed current occupation: [employer] WORK[employer] How many Children do You have: 0 Other Information That Helps Us Care for You: No Feels Safe at Home: Yes Safety Concerns: Feels Safe At This Time Childhood Exposure to Second-Hand Smoke: No Diet: regular caffeine: Yes during the past year weight has: remained stable Dental Care, Regularly: Yes Assistive Devices: None Results & Data Vital Signs (Past 12 Hours) Vital Signs Temp Pulse Pulse Resp BP BP Pulse Ox 08/03/24 08:50 99/65 L 08/03/24 07:55 95/64 L 08/03/24 07:40 36.7 C 112 H 18 72/42 L 92 08/03/24 03:25 36.8 C 78 16 130/66 96 08/02/24 23:34 103 H 08/02/24 22:35 36.6 C 101 H 20 106/67 93 O2 Del Method 08/03/24 08:50 08/03/24 07:55 08/03/24 07:40 Room Air 08/03/24 03:25 Room Air 08/02/24 23:34 08/02/24 22:35 Room Air
[2024-08-03] MEDS: DAPTOmycin 450 MG in SYRINGE 0 ML IV SCH (10:19)
--- NOTE | 2024-08-03 13:38 | Hospitalist Progress Note ---
Date of Service August 03, 2024 Assessment & Plan (1) Leukocytosis: Plan: uncertain etiology presumed to be 2nd to sepsis at time of admission however, EXTENSIVE w/u to date has not revealed a specific bacterial process/etiology to account for the high wbc count peripheral smear today unrevealing CRP 6 today (had been 5) sed rate wnl procal scantly above upper limit of normal no recent steroid use per pharmacy records or pt's recollection doubt that the rhinovirus is the cause ID consult obtained to ensure no other cause of the leukocytosis has been missed appreciate their consultation with the persistent leukocytosis and the new eosinophilia over the last few weeks....primary bone marrow process? other? formal consult placed to Dr Le who is the pt's primary oncologist -- she advises bone marrow bx stop Eliquis plan for bone marrow bx tomorrow (2) Eosinophilia: Plan: first seen on 07/13/24 CBC also her eosinophils were high on 07/29 and then slowly decreased next few days but now trending up again no evidence of allergic rxn no parasitic infections or symptoms of such no asthma history due to cancer / myeloproliferative d/o? other? peripheral smear unrevealing appreciate Dr Le's consult -- she advises bone marrow bx tomorrow patient & aware (3) Sepsis: Plan: presumed only testing to date that has shown a source was her BioFire which was + for rhinovirus/enterovirus no bacterial source thus far found despite extensive work-up to date including garcia-CT (Chest/abd/pelvis), multiple CXRs, u/a, urine cx, blood cx's, lyme/anaplasmosis screens, etc. does have cephalic vein thrombus b/l but no evidence of septic thrombophlebitis clinically on exam LE dopplers neg for DVT blood cx's negative cortisol level wnl ua on 07/29 and 07/30 not suggestive of UTI, and urine cx from 07/29 negative procalcitonin x 2 scantly elevated - significance uncertain has had persistent leukocytosis despite broad-spectrum IV abx including cefepime/doxy (MRSA coverage was deferred from start of admission - she has no indwelling port/catheter, no hardware, no skin issues/cellulitis, and MRSA [employer] swab was negative) ID consult appreciated; await recs heme/onc consult by Dr Le appreciated; bone marrow bx advised will cont doxy for now while awaiting anaplasmosis DNA added daptomycin in the rare event she has sepsis from septic thrombophlebitis (cephalic vein clots seen on dopplers) (4) Viral upper respiratory illness: Plan: Entero-/rhinovirus (+) on 07/29 Droplet isolation precautions Supportive care no evidence of any complicating bacterial superinfection see discussion above (5) BRIGIDO (acute kidney injury): Plan: presenting Cr 1.3 Cr 1 today received copious IV fluids day #1 of admission IV fluids are off although did need 2 small fluid boluses today (250cc x 2) due to relative hypotension repeat BMP am (6) Lung cancer, primary, with metastasis from lung to other site: Plan: On Keytruda [id number] Follows with Dr. Le, [facility] garcia-CT this admission without signs of worsening metastatic disease see discussion above appreciate Dr Le's consultation and recs (7) Nausea & vomiting: Plan: IV antiemetics as needed likely 2nd to enterovirus/rhinovirus added a daily PPI if nausea and/or vomiting persist then repeat CT a/p (8) Thrombosis of right cephalic vein: Plan: this explains, at least in part, her right arm/hand swelling it is a fairly long segment of thrombosis, she is symptomatic, and the proximal portion of the clot is high up in the arm in light of her stage 4 lung ca she is at risk of extension of this clot left arm doppler also with cephalic vein clot obtained dopplers of b/l legs due to swelling -- negative for DVT in light of the new onset edema obtained echo - EF hyperdynamic; BNP wnl initially had patient on Eliquis low-dose for the cephalic vein thrombus Dr Le advises HOLDING/STOPPING Eliquis Change to SC heparin for prophylaxis per her recs (9) Thrombosis of left cephalic vein: Plan: as above (10) Rhinovirus infection: Plan: tested + for such earlier this week likely a big contributor of her presentation but at this point does not explain ongoing leukocytosis, high CRP, edema, etc. no complicating bacterial process found thus far (11) Morbid obesity with BMI of 40.0-44.9, adult: Plan: BMI 40.9 (12) Tachycardia: Plan: was thought 2nd to sepsis although no bacterial source found would be odd for rhinovirus/viral sepsis to cause the tachycardia TSH wnl not anemic no significant pain or anxiety to explain the tachycardia no PEs on recent chest CTA echo with hyperdynamic LV function (c/w her tachycardia) cont to monitor (13) Hyponatremia: Plan: 133 today acceptable initially was volume contracted upon admission s/p COPIOUS IV fluids early on then developed significant 3rd spacing in all 4 limbs gave lasix 20mg IV x 1 over the weekend which I believe led to her hypotension this morning repeat BMP am (14) Edema: Plan: likely combination of cephalic vein thrombi (arms), hypoalbuminemia (alb 2.6 today) causing 3rd spacing, and previous copious IV fluids repeat u/a --- previous u/a showed proteinuria -- r/o worsening proteinuria contributing to current picture (15) Hypoalbuminemia: Plan: 2.6 albumin level today see #14 Plan updated extensively by phone this evening care plan reviewed DVT Proph - stop eliquis, change to SC heparin very complex care coordination with heme/onc, ID, nursing, etc. total time today spent on all care activities - about 85min Admission and Anticipated Discharge Date Admission Date: July 30, 2024 Subjective patient reports feeling tired she is not sleeping well at night-time c/o worsening edema in legs/arms no pain, however had ID consult this am also met with Dr Le who has advised bone marrow bx due to persistent leukocytosis & eosinophilia we discussed her left arm superficial thrombus in the cephalic vein IV team states we do not need to remove the IV in the left arm despite the cephalic vein thrombus denies any new complaints tele - ongoing sinus tach did have low BP this am s/p 250cc of NS required a 2nd small bolus of 250cc later in the day Review of Systems Review of Systems: gen - tired, weak, appetite fair cv - no chest pain pulm - no cough, no dyspnea GI - still with mild nausea at times; no vomiting; no pain musculo - denies any joint pains skin - no rash Physical Exam Physical Exam: gen - obese, NAD, looks same as yesterday; affect flat mouth - MMM, thrush plaques present on palate/buccal mucosa neck - no JVD heart - tachy, s1 s2, no murmur lungs - minimal fine b/l basilar rales, no wheezing, no increased work of breathing abd - soft NT ND BS+; no HSM extremities - right arm - swelling continues to improve in the right hand; left arm swelling is a bit worse today; I don't feel any palpable cords in either arm; she has no tenderness in either arm to palpation; the left arm is warm to touch; 1-2+ edema b/l shins/feet (edema is firm to touch) vascular - pulses b/l feet 2+ skin - no rash musculo - no joint effusions or synovitis of any small/large joint x 4 exts psych - a/o x 3 but flat affect Results & Data Results & Data Vital Signs (Past 12 Hours) Vital Signs Temp Pulse Resp BP BP Pulse Ox O2 Del Method 08/03/24 11:38 108/66 08/03/24 11:19 37.2 C 105 H 16 91/55 L 91 Room Air 08/03/24 09:33 98/64 L 08/03/24 08:50 99/65 L 08/03/24 07:55 95/64 L 08/03/24 07:40 36.7 C 112 H 18 72/42 L 92 Room Air 08/03/24 03:25 36.8 C 78 16 130/66 96 Room Air Laboratory Results Laboratory Results - last 48 hr 08/02/24 08/02/24 08/02/24 11:05 16:24 20:14 WBC RBC Hgb Hct MCV MCH MCHC RDW Std Deviation RDW Coeff of Mariann Plt Count MPV Immature Gran % (Auto) Neut % (Auto) Lymph % (Auto) [place] % (Auto) Eos % (Auto) Baso % (Auto) Neut # (Auto) Lymph # (Auto) [place] # (Auto) Eos # (Auto) Baso # (Auto) Immature Gran # (Auto) Absolute Nucleated RBC Nucleated RBC % (auto) Peripher Smr Path Cons Sodium Potassium Chloride Carbon Dioxide Anion Gap BUN Creatinine Est Cr Clr Drug Dosing eGFR BUN/Creatinine Ratio Glucose POC Glucose 191 H 191 H 195 H Calcium Total Bilirubin AST ALT Alkaline Phosphatase C-Reactive Protein Total Protein Albumin Globulin Albumin/Globulin Ratio 08/03/24 08/03/24 08/03/24 05:27 07:37 11:18 WBC 17.75 H RBC 4.81 Hgb 14.1 Hct 41.4 MCV 86.1 MCH 29.3 MCHC 34.1 RDW Std Deviation 44.0 RDW Coeff of Mariann 14.1 Plt Count 326 MPV 10.7 Immature Gran % (Auto) 3.6 Neut % (Auto) 64.3 Lymph % (Auto) 14.3 [place] % (Auto) 8.2 Eos % (Auto) 9.0 Baso % (Auto) 0.6 Neut # (Auto) 11.41 H Lymph # (Auto) 2.54 J[place]uld # (Auto) 1.46 H Eos # (Auto) 1.59 H Baso # (Auto) 0.11 Immature Gran # (Auto) 0.64 H Absolute Nucleated RBC 0.02 Nucleated RBC % (auto) 0.1 Peripher Smr Path Cons Sodium 133 L Potassium 4.3 Chloride 105 Carbon Dioxide 21 Anion Gap 7 BUN 40 H Creatinine 1.05 Est Cr Clr Drug Dosing 72.6 eGFR 62.75 BUN/Creatinine Ratio 38.1 H Glucose 151 H POC Glucose 165 H 170 H Calcium 9.1 Total Bilirubin 0.4 AST 17 ALT 13 Alkaline Phosphatase 64 C-Reactive Protein 6.25 H Total Protein 5.2 L Albumin 2.6 L Globulin 2.6 Albumin/Globulin Ratio 1.0 08/03/24 16:14 POC Glucose 182 H Microbiology 07/30/24 12:12 Blood Aerobic Blood Culture - Preliminary No growth in Aerobic bottle after 48 hours. 07/30/24 12:12 Blood Anaerobic Blood Culture - Final 07/30/24 12:06 Blood Aerobic Blood Culture - Preliminary No growth in Aerobic bottle after 48 hours. 07/30/24 12:06 Blood Anaerobic Blood Culture - Preliminary No growth in Anaerobic bottle after 48 hours. PG Care Time/CCT Total # of Minutes Spent Total Time Spent with Patient: Total time spent is greater than 50% in coordination of care (as documented) at patient's floor/unit and/or counseling patient: Prolonged Care Time Prolonged Care Time: Yes Total Prolonged Care Time: 85 Coding Level of Care Code 53106 SUB INP/OBS CARE 3/50MIN (25 - SIGNIFICANT, SEPARATELY IDENTIFIABLE ) Diagnoses Leukocytosis D72.829 Eosinophilia D72.10 Sepsis A41.9 Viral upper respiratory illness J06.9 BRIGIDO (acute kidney injury) N17.9 Lung cancer, primary, with metastasis from lung to other site C34.90 Nausea & vomiting R11.2 Thrombosis of right cephalic vein I82.611 Thrombosis of left cephalic vein I82.612 Rhinovirus infection B34.8 Morbid obesity with BMI of 40.0-44.9, adult E66.01; Z68.41 Tachycardia R00.0 Hyponatremia E87.1 Edema R60.9 Hypoalbuminemia E88.09 Additional Codes Prolonged Care Time - Prolonged Care Time: Yes ([id number])
[2024-08-03] MEDS: NYSTATIN SUSP 500,000 U/5 ML UDC PO SCH (14:18)
--- NOTE | 2024-08-03 15:21 | Infectious Disease Consult ---
Date of Consultation August 03, 2024 Assessment & Plan (1) Eosinophilia: (2) Leukocytosis: (3) Rhinovirus infection: (4) Thrombosis of right cephalic vein: Plan This is a 54-year-old female with a past medical history of metastatic lung cancer on Keytruda (last received 07/14/2024), kidney stones sent to the ED on 07/30 from her outpatient clinic for evaluation of nausea, vomiting, abdominal pain, diarrhea. On 07/17 she developed upper respiratory symptoms and (low-grade temperatures. She reports sick contacts - niece who had a upper respiratory infection. She was started on doxycycline but then developed some nausea and vomiting that was thought to be secondary to antibiotic Her upper respiratory symptoms included runny nose, some nasal congestion and dry scratchy throat. She denied cough, shortness of breath, sweats. Her symptoms improved however she developed nausea and vomiting, diarrhea, bilateral swelling of the hands. She denied any new rash, headache, visual changes, urinary symptoms. She endorses fatigue and malaise. She denies any travel. She has a cat at home but lives mostly in the shed. About 4 weeks ago she had an inclusion cyst removed from her back. The sutures removed about 2 weeks ago. She denies any drainage or pain at the site currently. Her is at bedside and provides additional history. On admission,afebrile, heart rate 131, RR 118, blood pressure 95/72, 95% on room air. Labs: WBC 16.42, hemoglobin 16.2, hematocrit 47.5, sodium 132, BUN 27, creatinine 1.30, lactate 3.1-->1.8, CRP 5.89-->6.25, Pro-Alberto 0.55, MRSA screen negative. Entero-/rhino virus detected on RVP. Chest x-ray with no acute cardiopulmonary findings. CT abdomen pelvis with no bowel obstruction or bowel wall thickening. Unchanged benign pneumatosis of the splenic flexure. CTA chest without pulmonary emboli. No consolidation to suggest pneumonia. No change in a 2.9 cm left apical opacity since prior PET/CT. Lower extremity Dopplers negative for DVT however right upper extremity Doppler noted superficial venous thrombus within the cephalic vein of the right upper arm. Upper extremity duplex shows a left superficial thrombus in the cephalic vein. Her hospital course complicated by increasing leukocytosis, with a eosinophilia. She was started on cefepime and doxycycline. Daptomycin was added this morning. ID consulted for leukocytosis without source. She has been evaluated by heme-onc and is pending a bone marrow biopsy. Micro Urine culture 07/29 no growth Respiratory viral panel: 07/29 entero-/rhino virus detected Lyme screen negative Blood cultures 07/30 NGTD Antibiotics Cefepime 07/30-08/01 Doxy 07/30- ongoing Daptomycin 08/03-ongoing # Worsening leukocytosis # Eosinophilia # Rhino/enterovirus positive on respiratory viral panel # Bilateral upper extremity superficial thrombus of the cephalic vein # Thrush # Metastatic lung cancer on Keytruda Discussion: Source of leukocytosis and eosinophilia unclear. No obvious evidence of bacterial pneumonia. Pro-Alberto 0.55, but no infiltrate on imaging. No skin/abdominal/urinary infectious source noted. Leukocytosis may be in the setting of bilateral upper extremity clots +/- metastatic cancer. Doubt persistent leukocytosis from rhino/enterovirus especially since she is on room air and is not requiring supplemental oxygen. Blood cultures remain sterile . Back wound healed without s/o active infection. Recommendations: Consider discontinuation of antibiotics in 24 hours if blood cultures remain sterile Continue nystatin swish and spit for thrush Monitor WBC Follow-up pending bone marrow biopsy Follow-up blood cultures Ordered strongyloides and schistosoma serology for am Thank you for this consult. ID will continue to follow Jess Dean MD, MPH Infectious Disease [facility] Call [phone] with questions Consultation Information Consultation was provided via telemedicine using two-way real-time interactive telecommunication between the patient and the telemedicine provider. For the duration of the visit, the provider was performing the assessment from a different facility than the patient. This includesuse of bluetooth stethoscope forauscultationperformed by the telepresenter that the telemedicine provider can hear if described in the physical exam. Senior Instructor contact information: Please call [facility] [phone]. (Phone Number For Physician Use Only) After establishing a telemedicine visit, patient was: Patient was verified with two unique identifiers Time Spent with Patient: Initial => 75 min History of Present Illness Reason for Consultation: Leukocytosis w/o source Requesting Physician: Peter Castle MD Attending Physician: Peter Castle MD History of Present Illness This is a 54-year-old female with a past medical history of metastatic lung cancer on Keytruda (last received 07/14/2024), kidney stones sent to the ED on 07/30 from her outpatient clinic for evaluation of nausea, vomiting, abdominal pain, diarrhea. On 07/17 she developed upper respiratory symptoms and (low-grade temperatures. She reports sick contacts - niece who had a upper respiratory infection. She was started on doxycycline but then developed some nausea and vomiting that was thought to be secondary to antibiotic Her upper respiratory symptoms included runny nose, some nasal congestion and dry scratchy throat. She denied cough, shortness of breath, sweats. Her symptoms improved however she developed nausea and vomiting, diarrhea, bilateral swelling of the hands. She denied any new rash, headache, visual changes, urinary symptoms. She endorses fatigue and malaise. She denies any travel. She has a cat at home but lives mostly in the shed. About 4 weeks ago she had an inclusion cyst removed from her back. The sutures removed about 2 weeks ago. She denies any drainage or pain at the site currently. Her is at bedside and provides additional history. On admission,afebrile, heart rate 131, RR 118, blood pressure 95/72, 95% on room air. Labs: WBC 16.42, hemoglobin 16.2, hematocrit 47.5, sodium 132, BUN 27, creatinine 1.30, lactate 3.1-->1.8, CRP 5.89-->6.25, Pro-Alberto 0.55, MRSA screen negative. Entero-/rhino virus detected on RVP. Chest x-ray with no acute cardiopulmonary findings. CT abdomen pelvis with no bowel obstruction or bowel wall thickening. Unchanged benign pneumatosis of the splenic flexure. CTA chest without pulmonary emboli. No consolidation to suggest pneumonia. No change in a 2.9 cm left apical opacity since prior PET/CT. Lower extremity Dopplers negative for DVT however right upper extremity Doppler noted superficial venous thrombus within the cephalic vein of the right upper arm. Upper extremity duplex shows a left superficial thrombus in the cephalic vein. Her hospital course complicated by increasing leukocytosis, with a eosinophilia. She was started on cefepime and doxycycline. Daptomycin was added this morning. ID consulted for leukocytosis without source. She has been evaluated by heme-onc and is pending a bone marrow biopsy. Allergies Allergy/AdvReac Type Severity Reaction Status Date / Time amoxicillin [From Augmentin] Allergy Severe Hives Unverified 07/22/24 13:40 clavulanic acid Allergy Severe Hives Unverified 07/22/24 13:40 [From Augmentin] codeine AdvReac Intermediate Eye Verified 07/22/24 13:40 problems (if in the sun) Home Medications Medication Instructions Recorded Confirmed Type diphenhydramine HCl 50 mg capsule 50 mg PO HS 11/18/20 07/30/24 History ([employer] SleepGels) acetaminophen 500 mg capsule 1,000 mg PO Q6H PRN Pain 08/15/21 07/30/24 History oxycodone 5 mg capsule 5 mg PO Q8H PRN Pain 08/15/21 07/30/24 History epinephrine 0.3 mg/0.3 mL 0.3 mg (0.3 mL) IM Q3H PRN 12/30/22 07/30/24 Rx injection, auto-injector (EpiPen anaphylaxis #2 ea 2-Nando) pembrolizumab 50 mg intravenous 50 mg IV .q6wks 12/30/22 07/30/24 History solution ondansetron 4 mg disintegrating 4 mg PO Q6H PRN nausea and 01/17/23 07/30/24 Rx tablet vomiting #14 tabs albuterol sulfate 90 mcg/actuation 2 puffs inhalation 6XD PRN 11/14/23 07/30/24 Rx aerosol inhaler shortness of breath or wheezing #6.7 grams benzonatate 100 mg capsule 100 mg PO TID PRN cough #15 caps 11/14/23 07/30/24 Rx ascorbic acid (vitamin C) 250 mg 250 mg PO DAILY 01/07/24 07/30/24 History tablet vxtnpvve-bzj-sukelv 5 mg-zeaxanth 1 cap PO DAILY 01/07/24 07/30/24 History 1 mg-bilberry 7.5 mg-herbal capsule (Macular Health Formula) zinc gluconate 30 mg tablet 30 mg PO DAILY 01/07/24 07/30/24 History ergocalciferol (vitamin D2) 1,250 1,250 mcg PO .weekly #14 caps 07/10/24 07/30/24 Rx mcg (50,000 unit) capsule budesonide 90 mcg/actuation breath 2 inh inhalation BID PRN sob 07/29/24 07/30/24 History activated powder inhaler (Pulmicort Flexhaler) doxycycline hyclate 100 mg tablet 100 mg PO BID 07/29/24 07/30/24 History mometasone 100 mcg/actuation HFA 2 puff inhalation BID PRN sob 07/29/24 07/30/24 History aerosol inhaler (Asmanex HFA) ondansetron 4 mg disintegrating 4 mg PO Q6H PRN nausea and 07/29/24 07/30/24 Rx tablet vomiting #20 tabs Patient History Medical History Endometrial polyp Lung cancer, primary, with metastasis from lung to other site Started chemo 08/07/21 Contact with and (suspected) exposure to covid-19 COVID positive family members exposure (07/2020) > personal symptoms at time of: Fatigue, sinus infection type symptoms, cough > was not tested/symptoms resolved Hx of pancreatitis Several years ago Kidney stone Hx Surgical History History of dilatation and curettage (08/2021) Hx laparoscopic cholecystectomy (07/11/21) Laparoscopic Cholecystectomy with Cholangiogram with Biopsy of the Omentum and Biopsy of Peritoneal Implant (07/11/21): Grade view 1, Cabzeas #2, ETT 7.5 at [facility]. Patient reported dyspnea in recovery room post-operatively. She states improvement with incentive spirometry and possible oxygen supplementation. She states she was discharged home same day without issue. No mention of issues per anesthesia post-op progress note. Hx of colonoscopy Nausea and vomiting after administration of anesthetic agent mild PONV - patch "worked" History of lithotripsy x2 (12/2020, 01/2021) Left ESWL (01/27/21): LMA#4 at [facility] (scope patch used) [place] teeth extracted S/P cystoscopy with ureteral stent placement Family History Grandmother (Maternal) Colorectal cancer Father Diabetes Mother Hypertension Brother Diabetes Grandmother (Paternal) Kidney malignancy Other No family history of adverse response to anesthesia Denies family history of Ovarian cancer Breast cancer Social History Smoking Status: Never smoker Tobacco Type: Cigarettes Second Hand Exposure: No; Do You Dip or Chew Tobacco: No; Hx Alcohol Use: Yes Alcohol type: wine Hx Substance Use: No Preferred Language: Kyrgyz Communication Ability: Effective Visual Impairment: No Limitations Hearing Ability: Normal Beauty Advisor Required: No Beliefs That Will Affect Care: None marital status: Current Living Situation: Spouse Current Living Situation Comment: Vic current occupational status: employed 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 Pertinent positives as per HPI Physical Exam Physical Exam: Gen- NAD, fatigued appearing HEENT- Anicteric sclera + thrush Neck- supple Lung- clear to auscultation, on RA Cardiac- sinus tachycardia Ext- BL UE edema , BL LE edema Abd- soft , not tender, not distended Neuro- AAO times 3 Psych- normal mood Skin - mid back healed wound sp excision Results & Data Vital Signs (Past 12 Hours) Vital Signs Temp Pulse Pulse Resp BP BP Pulse Ox 08/03/24 14:23 109 H 08/03/24 11:38 108/66 08/03/24 11:19 37.2 C 105 H 16 91/55 L 91 08/03/24 09:33 98/64 L 08/03/24 08:50 99/65 L 08/03/24 07:55 95/64 L 08/03/24 07:40 36.7 C 112 H 18 72/42 L 92 08/03/24 03:25 36.8 C 78 16 130/66 96 O2 Del Method 08/03/24 14:23 08/03/24 11:38 08/03/24 11:19 Room Air 08/03/24 09:33 08/03/24 08:50 08/03/24 07:55 08/03/24 07:40 Room Air 08/03/24 03:25 Room Air Laboratory Results Laboratory Results - last 48 hr 08/01/24 08/01/2408/01/24 14:23 15:53 19:07 WBC RBC Hgb Hct MCV MCH MCHC RDW Std Deviation RDW Coeff of Mariann Plt Count MPV Immature Gran % (Auto) Neut % (Auto) Lymph % (Auto) Barron % (Auto) Eos % (Auto) Baso % (Auto) Neut # (Auto) Lymph # (Auto) Barron # (Auto) Eos # (Auto) Baso # (Auto) Immature Gran # (Auto) Absolute Nucleated RBC Nucleated RBC % (auto) Peripher Smr Path Cons ESR 25 Sodium Potassium Chloride Carbon Dioxide Anion Gap BUN Creatinine Est Cr Clr Drug Dosing eGFR BUN/Creatinine Ratio Glucose POC Glucose 173 H Calcium Total Bilirubin AST ALT Alkaline Phosphatase C-Reactive Protein B-Natriuretic Peptide Total Protein Albumin Globulin Albumin/Globulin Ratio Procalcitonin 0.56 H Anaplasma Smear See Comment Lyme Disease Screen Negative 08/01/24 08/02/24 08/02/24 20:18 05:24 07:05 WBC 16.70 H RBC 4.75 Hgb 13.9 Hct 40.8 MCV 85.9 MCH 29.3 MCHC 34.1 RDW Std Deviation 43.9 RDW Coeff of Mariann 13.9 Plt Count 295 MPV 10.4 Immature Gran % (Auto) 2.5 Neut % (Auto) 67.7 Lymph % (Auto) 14.9 Barron % (Auto) 7.9 Eos % (Auto) 6.3 Baso % (Auto) 0.7 Neut # (Auto) 11.31 H Lymph # (Auto) 2.49 Barron # (Auto) 1.32 H Eos # (Auto) 1.05 H Baso # (Auto) 0.12 Immature Gran # (Auto) 0.41 H Absolute Nucleated RBC Nucleated RBC % (auto) Peripher Smr Path Cons ESR Sodium 134 L Potassium 4.3 Chloride 105 Carbon Dioxide 21 Anion Gap 8 BUN 39 H Creatinine 0.98 Est Cr Clr Drug Dosing 77.8 eGFR 68.16 BUN/Creatinine Ratio 39.8 H Glucose 150 H POC Glucose 160 H 219 H Calcium 8.9 Total Bilirubin AST ALT Alkaline Phosphatase C-Reactive Protein B-Natriuretic Peptide 19 Total Protein Albumin Globulin Albumin/Globulin Ratio Procalcitonin Anaplasma Smear Lyme Disease Screen 08/02/24 08/02/24 08/02/24 11:05 16:24 20:14 WBC RBC Hgb Hct MCV MCH MCHC RDW Std Deviation RDW Coeff of Mariann Plt Count MPV Immature Gran % (Auto) Neut % (Auto) Lymph % (Auto) Barron % (Auto) Eos % (Auto) Baso % (Auto) Neut # (Auto) Lymph # (Auto) Barron # (Auto) Eos # (Auto) Baso # (Auto) Immature Gran # (Auto) Absolute Nucleated RBC Nucleated RBC % (auto) Peripher Smr Path Cons ESR Sodium Potassium Chloride Carbon Dioxide Anion Gap BUN Creatinine Est Cr Clr Drug Dosing eGFR BUN/Creatinine Ratio Glucose POC Glucose 191 H 191 H 195 H Calcium Total Bilirubin AST ALT Alkaline Phosphatase C-Reactive Protein B-Natriuretic Peptide Total Protein Albumin Globulin Albumin/Globulin Ratio Procalcitonin Anaplasma Smear Lyme Disease Screen 08/03/24 08/03/24 08/03/24 05:27 07:37 11:18 WBC 17.75 H RBC 4.81 Hgb 14.1 Hct 41.4 MCV 86.1 MCH 29.3 MCHC 34.1 RDW Std Deviation 44.0 RDW Coeff of Mariann 14.1 Plt Count 326 MPV 10.7 Immature Gran % (Auto) 3.6 Neut % (Auto) 64.3 Lymph % (Auto) 14.3 Barron % (Auto) 8.2 Eos % (Auto) 9.0 Baso % (Auto) 0.6 Neut # (Auto) 11.41 H Lymph # (Auto) 2.54 Barron # (Auto) 1.46 H Eos # (Auto) 1.59 H Baso # (Auto) 0.11 Immature Gran # (Auto) 0.64 H Absolute Nucleated RBC 0.02 Nucleated RBC % (auto) 0.1 Peripher Smr Path Cons ESR Sodium 133 L Potassium 4.3 Chloride 105 Carbon Dioxide 21 Anion Gap 7 BUN 40 H Creatinine 1.05 Est Cr Clr Drug Dosing 72.6 eGFR 62.75 BUN/Creatinine Ratio 38.1 H Glucose 151 H POC Glucose 165 H 170 H Calcium 9.1 Total Bilirubin 0.4 AST 17 ALT 13 Alkaline Phosphatase 64 C-Reactive Protein 6.25 H B-Natriuretic Peptide Total Protein 5.2 L Albumin 2.6 L Globulin 2.6 Albumin/Globulin Ratio 1.0 Procalcitonin Anaplasma Smear Lyme Disease Screen Diagnostic Findings Microbiology 07/30/24 12:12 Blood Aerobic Blood Culture - Preliminary No growth in Aerobic bottle after 48 hours. 07/30/24 12:12 Blood Anaerobic Blood Culture - Final 07/30/24 12:06 Blood Aerobic Blood Culture - Preliminary No growth in Aerobic bottle after 48 hours. 07/30/24 12:06 Blood Anaerobic Blood Culture - Preliminary No growth in Anaerobic bottle after 48 hours. Venous Doppler Study 08/01/24 14:22 INDICATION: Leg pain. COMPARISON: None available. TECHNIQUE: Multiple longitudinal and transverse sonographic images of the left and right lower extremity were obtained in conjunction with duplex Doppler sonography and serial compression through the left and right common femoral, superficial femoral, popliteal, and where possible visualized proximal calf veins. FINDINGS: Limited visualization of the calf veins secondary to edema. As visualized, the abovementioned veins demonstrate normal compressibility, flow and an appropriate augmentation response where possible. IMPRESSION: Negative for bilateral lower extremity DVT, as visualized. Electronically signed by Alexandru Jaimes 08-01-2024 3:29 PM Chest X-Ray 08/02/24 13:25 EXAM: Radiographs of the Chest 2 Views INDICATION: Basilar rales. TECHNIQUE: Frontal and lateral views of the chest. COMPARISON: 07/31/2024 FINDINGS: Lungs and pleural spaces: Stable mild left basilar pleural and parenchymal scarring. No consolidation or pulmonary edema. No pleural effusion or pneumothorax. Heart: Normal shape and configuration. Mediastinum: Normal contour. Bones/joints: No fracture, erosion or dislocation. IMPRESSION: Stable chronic changes. No acute disease. ACT 112: Negative or not required by law. Electronically signed by Elizabeth Fisher 08-02-2024 2:58 PM Extremity Venous Study 08/02/24 14:19 Exam(s): US VENOUS LEFT UPPER EXTREMITY EXAM: US Duplex Left Upper Extremity Veins CLINICAL HISTORY: Reason for exam: edema, lung ca, r/o DVT. TECHNIQUE: Real-time duplex ultrasound scan of the left upper extremity veins integrating B-mode two-dimensional vascular structure, Doppler spectral analysis, color flow Doppler imaging and compression. COMPARISON: No relevant prior studies available. FINDINGS: The exam is limited.. Deep veins: There No DVT in the internal jugular, subclavian, axillary, or brachial veins. The veins demonstrate normal color flow, are normally compressible, with normal phasic flow and/or augmentation response. Superficial veins: There is superficial thrombus noted in the cephalic vein in the region of a central line catheter. Soft tissues: No acute findings. IMPRESSION: Limited exam. No evidence of deep venous thrombosis. There is superficial thrombus noted in the cephalic vein in the region of a central line catheter. Electronically signed by: Fabián Hill MD 08/02/24 23:10 PM Medications Administered Home Medications Medication Instructions Recorded Confirmed Last Taken diphenhydramine HCl 50 mg capsule 50 mg PO HS 11/18/20 07/30/24 01/16/23 ([employer] SleepGels) acetaminophen 500 mg capsule 1,000 mg PO Q6H PRN Pain 08/15/21 07/30/24 07/29/24 oxycodone 5 mg capsule 5 mg PO Q8H PRN Pain 08/15/21 07/30/24 12/29/22 epinephrine 0.3 mg/0.3 mL 0.3 mg (0.3 mL) IM Q3H PRN 12/30/22 07/30/24 Unknown injection, auto-injector (EpiPen anaphylaxis #2 ea 2-Nando) pembrolizumab 50 mg intravenous 50 mg IV .q6wks 12/30/22 07/30/24 01/14/23 solution ondansetron 4 mg disintegrating 4 mg PO Q6H PRN nausea and 01/17/23 07/30/24 07/29/24 tablet vomiting #14 tabs albuterol sulfate 90 mcg/actuation 2 puffs inhalation 6XD PRN 11/14/23 07/30/24 Unknown aerosol inhaler shortness of breath or wheezing #6.7 grams benzonatate 100 mg capsule 100 mg PO TID PRN cough #15 caps 11/14/23 07/30/24 Unknown ascorbic acid (vitamin C) 250 mg 250 mg PO DAILY 01/07/24 07/30/24 Unknown tablet [id number]-[id number]-ylwdfj 5 mg-zeaxanth 1 cap PO DAILY 01/07/24 07/30/24 Unknown 1 mg-bilberry 7.5 mg-herbal capsule (Macular Health Formula) zinc gluconate 30 mg tablet 30 mg PO DAILY 01/07/24 07/30/24 Unknown ergocalciferol (vitamin D2) 1,250 1,250 mcg PO .weekly #14 caps 07/10/24 07/30/24 Unknown mcg (50,000 unit) capsule budesonide 90 mcg/actuation breath 2 inh inhalation BID PRN sob 07/29/24 07/30/24 Unknown activated powder inhaler (Pulmicort Flexhaler) doxycycline hyclate 100 mg tablet 100 mg PO BID 07/29/24 07/30/24 Unknown mometasone 100 mcg/actuation HFA 2 puff inhalation BID PRN sob 07/29/24 07/30/24 Unknown aerosol inhaler (Asmanex HFA) ondansetron 4 mg disintegrating 4 mg PO Q6H PRN nausea and 07/29/24 07/30/24 Unknown tablet vomiting #20 tabs Active Medications Generic Name Dose Route Start Last Admin Trade Name Freq PRN Reason Stop Dose Admin Acetaminophen 650 mg 07/30/24 17:17 08/01/24 15:47 Acetaminophen 325 Mg Tab PO 08/29/24 17:16 650 mg Q4H PRN Administration Pain or Fever Doxycycline Hyclate 100 mg/ 100 mls @ 50 mls/hr 07/30/24 21:00 08/03/24 10:38 Dextrose IV 08/04/24 20:59 Infused Q12H STEPHENIE Infusion Promethazine HCl 12.5 mg in 50.5 mls @ 202 mls/hr 07/31/24 16:26 08/03/24 00:34 Phenergan IV 08/30/24 16:25 Infused Q6H PRN Infusion Nausea And Vomiting Daptomycin 450 mg/ Syringe 9 mls @ 4.5 mls/min 08/03/24 09:30 08/03/24 10:19 IV 08/05/24 09:29 4.5 mls/min Q24H STEPHENIE Administration Protocol Insulin Aspart 0 units 07/31/24 13:30 08/03/24 12:10 Insulin Aspart Per Unit Charge SC 08/30/24 13:29 4 units ACHS STEPHENIE Administration Melatonin 3 mg 08/02/24 19:39 08/02/24 20:45 Melatonin 3 Mg Tab PO 09/01/24 19:38 3 mg HS PRN Administration Sleep Nystatin 5 ml 08/03/24 13:40 08/03/24 14:18 Nystatin Susp 500,000 U/5 Ml Udc PO 08/13/24 13:39 5 ml QID STEPHENIE Administration Ondansetron HCl 4 mg 07/30/24 17:17 08/03/24 13:40 Ondansetron Inj 2 Mg/Ml 2 Ml Vial IV 08/29/24 17:16 4 mg Q6H PRN Administration Nausea Pantoprazole Sodium 40 mg 08/01/24 17:30 08/03/24 09:08 Pantoprazole 40 Mg Tab PO 08/31/24 17:29 40 mg QAM STEPHENIE Administration
[2024-08-03] MEDS ORDERED: LORazepam 0.5 MG TAB PO PRN (20:23)
[2024-08-03] MEDS: LORazepam 0.5 MG TAB PO SCH (20:36)
[2024-08-03] MEDS: HEPARIN SOD 5,000 UNIT/0.5 ML VIAL SQ SCH (22:33)
[2024-08-04 07:15] LABS: Hematocrit (blood only) 40.3 % (37.0-47.0); Hemoglobin 13.9 g/dl (12.0-16.0); Mean Corpuscular Hemoglobin 29.6 pg (25.0-34.0); Mean Corpuscular Hgb Conc 34.5 g/dL (32.0-36.0); Mean Corpuscular Volume 85.7 fL (80.0-100.0); Mean Platelet Volume 10.8 fL (9.4-12.4); Platelet Count 335 K/uL (130-400); RDW Coefficient of Variation 14.4 % (11.5-14.5); RDW Standard Deviation 44.4 fL (36.4-46.3); White Blood Count 18.38 K/ul (4.8-10.8)
[2024-08-04 07:38] LABS: Basophils # (auto) 0.13 K/uL (0.00-0.20); Basophils % (auto) 0.7 %; Eosinophils # (auto) 1.78 K/uL (0.00-0.50); Eosinophils % (auto) 9.7 %; Immature Granulocytes # (auto) 0.68 K/uL (0.01-0.20); Immature Granulocytes % (auto) 3.7 %; Lymphocytes # (auto) 2.94 K/uL (1.20-3.40); Monocytes # (auto) 1.44 K/uL (0.11-0.59); Monocytes % (auto) 7.8 %; Neutrophils # (auto) 11.41 K/uL (1.40-6.50); Neutrophils % (auto) 62.1 %
[2024-08-04 08:22] LABS: Bone Marrow Smear SLHOLD; Polychromasia 1+
[2024-08-04 08:41] LABS: BUN Creatinine Ratio 38.5 (10-20); Calcium 8.9 mg/dl (8.6-10.3); Creatinine Clr Calc Pharmacy 79.4 ml/min; Potassium 4.3 mmol/L (3.5-5.1)
[2024-08-04 09:36] LABS: Appearance Urine Cloudy (Clear); Bacteria Urine Automated None Seen (None Seen); Bilirubin Urine Negative (Negative); Blood Urine Negative (Negative); Color Urine Yellow; Glucose Urine UA Negative (Negative); Granular Casts Urine Present /lpf (None Prsent); Hyaline Casts Urine Present /lpf (None Presnt); Ketones Urine Negative (Negative); Leukocyte Esterase Urine Negative (Negative); Mucus Urine Present (None Prsent); Nitrite Urine Negative (Negative); Protein Urine 1+ (Negative); Urobilinogen Urine Negative (Negative); WBC Urine Automated 0-5 /hpf (0-5); pH Urine 5.5 (4.5-7.5)
--- NOTE | 2024-08-04 13:20 | CT Scan Report ---
CT-guided bone marrow biopsy INDICATION: Leukocytosis PROCEDURE: Procedure and risks were explained. Informed consent was obtained. A final timeout was com pleted. The patient was placed prone on the CT exam table. The left gluteal region was prepped and dr aped in sterile fashion. 1% lidocaine was utilized for skin anesthesia. The patient received 1 g Tyle nol IV. Utilizing CT guidance, an 11-gauge bone biopsy needle was advanced into the left iliac bone. Multiple aspirates and one bone core was obtained and given to the lab. The needle was removed and Band-Aid a pplied. The patient tolerated the procedure well. Vital signs will be monitored on the floor. IMPRESSION: Bone marrow biopsy as above. Performed, dictated, and signed by Jesús Rose PA-C; to be co-signed by Dr. Abimael Johnson. Electronically signed by: Abimael Johnson M.D. 08/04/2024 2:32 PM
[2024-08-04] MEDS: ACETAMINOPHEN 1000 MG/100 ML IV IV ONE (13:31)
[2024-08-04] MEDS: fentaNYL citrate PF 100 MCG/2 ML VIAL ONE (13:31)
[2024-08-04] MEDS ORDERED: POLYETHYLENE (MIRALAX) 17 GM PACK PO PRN (15:09)
--- NOTE | 2024-08-04 16:44 | Infectious Disease Progress Nt ---
Date of Service August 04, 2024 Assessment & Plan (1) Eosinophilia: (2) Leukocytosis: (3) Rhinovirus infection: (4) Thrombosis of right cephalic vein: Plan This is a 54-year-old female with a past medical history of metastatic lung cancer on Keytruda (last received 07/14/2024), kidney stones sent to the ED on 07/30 from her outpatient clinic for evaluation of nausea, vomiting, abdominal pain, diarrhea. On 07/17 she developed upper respiratory symptoms and (low-grade temperatures. She reports sick contacts - niece who had a upper respiratory infection. She was started on doxycycline but then developed some nausea and vomiting that was thought to be secondary to antibiotic Her upper respiratory symptoms included runny nose, some nasal congestion and dry scratchy throat. She denied cough, shortness of breath, sweats. Her symptoms improved however she developed nausea and vomiting, diarrhea, bilateral swelling of the hands. She denied any new rash, headache, visual changes, urinary symptoms. She endorses fatigue and malaise. She denies any travel. She has a cat at home but lives mostly in the shed. About 4 weeks ago she had an inclusion cyst removed from her back. The sutures removed about 2 weeks ago. She denies any drainage or pain at the site currently. Her is at bedside and provides additional history. On admission,afebrile, heart rate 131, RR 118, blood pressure 95/72, 95% on room air. Labs: WBC 16.42, hemoglobin 16.2, hematocrit 47.5, sodium 132, BUN 27, creatinine 1.30, lactate 3.1-->1.8, CRP 5.89-->6.25, Pro-Alberto 0.55, MRSA screen negative. Entero-/rhino virus detected on RVP. Chest x-ray with no acute cardiopulmonary findings. CT abdomen pelvis with no bowel obstruction or bowel wall thickening. Unchanged benign pneumatosis of the splenic flexure. CTA chest without pulmonary emboli. No consolidation to suggest pneumonia. No change in a 2.9 cm left apical opacity since prior PET/CT. Lower extremity Dopplers negative for DVT however right upper extremity Doppler noted superficial venous thrombus within the cephalic vein of the right upper arm. Upper extremity duplex shows a left superficial thrombus in the cephalic vein. Her hospital course complicated by increasing leukocytosis, with a eosinophilia. She was started on cefepime and doxycycline. Daptomycin was added this morning. ID consulted for leukocytosis without source. She has been evaluated by heme-onc and is pending a bone marrow biopsy. Micro Urine culture 07/29 no growth Respiratory viral panel: 07/29 entero-/rhino virus detected Lyme screen negative Blood cultures 07/30 NGTD Antibiotics Cefepime 07/30-08/01 Doxy 07/30- ongoing Daptomycin 08/03-ongoing # Worsening leukocytosis # Eosinophilia # Rhino/enterovirus positive on respiratory viral panel # Bilateral upper extremity superficial thrombus of the cephalic vein # Thrush # Metastatic lung cancer on Keytruda Discussion: Source of leukocytosis and eosinophilia unclear. No obvious evidence of bacterial pneumonia. Pro-Alberto 0.55, but no infiltrate on imaging. No skin/abdominal/urinary infectious source noted. Leukocytosis may be in the setting of bilateral upper extremity clots +/- metastatic cancer. Doubt persistent leukocytosis from rhino/enterovirus especially since she is on room air and is not requiring supplemental oxygen. Blood cultures remain sterile . Back wound healed without s/o active infection. Recommendations: Consider discontinuation of antibiotics in 24 hours if blood cultures remain sterile. Unclear if current process is infectious. If infectious ? if bacterial, will order fungal markers Continue nystatin swish and spit for thrush Monitor WBC Follow-up pending bone marrow biopsy Follow-up blood cultures Follow up strongyloides ( inhouse and schistosoma ( send out ) serology Ordered B d glucan/ fugital, crypto ag, urine histo ag, ID will continue to follow Jess Dean MD, MPH Infectious Disease [facility], ID Division Call [phone] with questions Admission and Anticipated Discharge Date Admission Date: July 30, 2024 Subjective This patient recommendation is based on a telemedicine consult request which was completed asynchronously through chart review and information provided by the primary physician. The patient was not seen or examined today. The evaluation is consultative in nature and all patient care and treatment decisions can either be accepted or rejected by the patient's primary hospital-based treating physician using their own independent medical judgment for their patient. Time Spent Reviewing Chart: 21 - 30 minutes WBC up to 18.38 afebrile sp bone biopsy Results & Data Vital Signs (Past 12 Hours) Vital Signs Temp Pulse Resp BP BP Pulse Ox O2 Del Method 08/04/24 15:03 36.5 C 84 16 96/60 L 91 Room Air 08/04/24 13:55 36.5 C 96 H 19 104/66 94 Room Air 08/04/24 13:20 36.4 C L 97 H 16 94/59 L 95 Room Air 08/04/24 13:05 94/63 L 08/04/24 11:04 36.4 C L 97 H 16 103/64 94 Room Air 08/04/24 07:05 36.7 C 104 H 18 110/61 94 Room Air Laboratory Results Short CBC 08/04/24 Range/Units 05:35 WBC 18.38 H (4.8-10.8) K/ul Hgb 13.9 (12.0-16.0) g/dl Hct 40.3 (37.0-47.0) % Plt Count 335 (130-400) K/uL BMP 08/04/24 05:35 Sodium 130 L Potassium 4.3 Chloride 103 Carbon Dioxide 20 L BUN 37 H Creatinine 0.96 Glucose 153 H Calcium 8.9 Urine 08/04/24 Range/Units 08:40 Urine Color Yellow Urine Appearance Cloudy A (Clear) Urine pH 5.5 (4.5-7.5) Ur Specific [place] 1.030 (1.000-1.030) Urine Protein 1+ H (Negative) Urine Glucose (UA) Negative (Negative) Diagnostic Findings Microbiology 07/30/24 12:12 Blood Aerobic Blood Culture - Final No growth in Aerobic bottle after 5 days. 07/30/24 12:12 Blood Anaerobic Blood Culture - Final 07/30/24 12:06 Blood Aerobic Blood Culture - Final No growth in Aerobic bottle after 5 days. 07/30/24 12:06 Blood Anaerobic Blood Culture - Final No growth in Anaerobic bottle after 5 days. Chest X-Ray 08/02/24 13:25 EXAM: Radiographs of the Chest 2 Views INDICATION: Basilar rales. TECHNIQUE: Frontal and lateral views of the chest. COMPARISON: 07/31/2024 FINDINGS: Lungs and pleural spaces: Stable mild left basilar pleural and parenchymal scarring. No consolidation or pulmonary edema. No pleural effusion or pneumothorax. Heart: Normal shape and configuration. Mediastinum: Normal contour. Bones/joints: No fracture, erosion or dislocation. IMPRESSION: Stable chronic changes. No acute disease. ACT 112: Negative or not required by law. Electronically signed by Elizabeth Fisher 08-02-2024 2:58 PM Extremity Venous Study 08/02/24 14:19 Exam(s): US VENOUS LEFT UPPER EXTREMITY EXAM: US Duplex Left Upper Extremity Veins CLINICAL HISTORY: Reason for exam: edema, lung ca, r/o DVT. TECHNIQUE: Real-time duplex ultrasound scan of the left upper extremity veins integrating B-mode two-dimensional vascular structure, Doppler spectral analysis, color flow Doppler imaging and compression. COMPARISON: No relevant prior studies available. FINDINGS: The exam is limited.. Deep veins: There No DVT in the internal jugular, subclavian, axillary, or brachial veins. The veins demonstrate normal color flow, are normally compressible, with normal phasic flow and/or augmentation response. Superficial veins: There is superficial thrombus noted in the cephalic vein in the region of a central line catheter. Soft tissues: No acute findings. IMPRESSION: Limited exam. No evidence of deep venous thrombosis. There is superficial thrombus noted in the cephalic vein in the region of a central line catheter. Electronically signed by: Fabián Hill MD 08/02/24 23:10 PM Bone Marrow Biopsy w/ CT 08/04/24 12:00 CT-guided bone marrow biopsy INDICATION: Leukocytosis PROCEDURE: Procedure and risks were explained. Informed consent was obtained. A final timeout was completed. The patient was placed prone on the CT exam table. The left gluteal region was prepped and draped in sterile fashion. 1% lidocaine was utilized for skin anesthesia. The patient received 1 g Tylenol IV. Utilizing CT guidance, an 11-gauge bone biopsy needle was advanced into the left iliac bone. Multiple aspirates and one bone core was obtained and given to the lab. The needle was removed and Band-Aid applied. The patient tolerated the procedure well. Vital signs will be monitored on the floor. IMPRESSION: Bone marrow biopsy as above. Performed, dictated, and signed by Jesús Rose PA-C; to be co-signed by Dr. Abimael Johnson. Electronically signed by: Abimael Johnson M.D. 08/04/2024 2:32 PM Medications Administered Home Medications Medication Instructions Recorded Confirmed Last Taken diphenhydramine HCl 50 mg capsule 50 mg PO HS 11/18/20 07/30/24 01/16/23 ([employer]) acetaminophen 500 mg capsule 1,000 mg PO Q6H PRN Pain 08/15/21 07/30/24 07/29/24 oxycodone 5 mg capsule 5 mg PO Q8H PRN Pain 08/15/21 07/30/24 12/29/22 epinephrine 0.3 mg/0.3 mL 0.3 mg (0.3 mL) IM Q3H PRN 12/30/22 07/30/24 Unknown injection, auto-injector (EpiPen anaphylaxis #2 ea 2-Nando) pembrolizumab 50 mg intravenous 50 mg IV .q6wks 12/30/22 07/30/24 01/14/23 solution ondansetron 4 mg disintegrating 4 mg PO Q6H PRN nausea and 01/17/23 07/30/24 07/29/24 tablet vomiting #14 tabs albuterol sulfate 90 mcg/actuation 2 puffs inhalation 6XD PRN 11/14/23 07/30/24 Unknown aerosol inhaler shortness of breath or wheezing #6.7 grams benzonatate 100 mg capsule 100 mg PO TID PRN cough #15 caps 11/14/23 07/30/24 Unknown ascorbic acid (vitamin C) 250 mg 250 mg PO DAILY 01/07/24 07/30/24 Unknown tablet sscrykqx-alb-oodrys 5 mg-zeaxanth 1 cap PO DAILY 01/07/24 07/30/24 Unknown 1 mg-bilberry 7.5 mg-herbal capsule (Macular Health Formula) zinc gluconate 30 mg tablet 30 mg PO DAILY 01/07/24 07/30/24 Unknown ergocalciferol (vitamin D2) 1,250 1,250 mcg PO .weekly #14 caps 07/10/24 07/30/24 Unknown mcg (50,000 unit) capsule budesonide 90 mcg/actuation breath 2 inh inhalation BID PRN sob 07/29/24 07/30/24 Unknown activated powder inhaler (Pulmicort Flexhaler) doxycycline hyclate 100 mg tablet 100 mg PO BID 07/29/24 07/30/24 Unknown mometasone 100 mcg/actuation HFA 2 puff inhalation BID PRN sob 07/29/24 07/30/24 Unknown aerosol inhaler (Asmanex HFA) ondansetron 4 mg disintegrating 4 mg PO Q6H PRN nausea and 07/29/24 07/30/24 Unknown tablet vomiting #20 tabs Active Medications Generic Name Dose Route Start Last Admin Trade Name Patrick PRN Reason Stop Dose Admin Acetaminophen 650 mg 07/30/24 17:17 08/01/24 15:47 Acetaminophen 325 Mg Tab PO 08/29/24 17:16 650 mg Q4H PRN Administration Pain or Fever Doxycycline Hyclate 100 mg/ 100 mls @ 50 mls/hr 07/30/24 21:00 08/04/24 09:34 Dextrose IV 08/04/24 20:59 Infused Q12H STEPHENIE Infusion Promethazine HCl 12.5 mg in 50.5 mls @ 202 mls/hr 07/31/24 16:26 08/03/24 22:49 Phenergan IV 08/30/24 16:25 Infused Q6H PRN Infusion Nausea And Vomiting Daptomycin 450 mg/ Syringe 9 mls @ 4.5 mls/min 08/03/24 09:30 08/04/24 08:29 IV 08/05/24 09:29 4.5 mls/min Q24H STEPHENIE Administration Protocol Insulin Aspart 0 units 07/31/24 13:30 08/04/24 12:03 Insulin Aspart Per Unit Charge SC 08/30/24 13:29 6 units ACHS STEPHENIE Administration Lorazepam 0.25 mg 08/03/24 21:00 08/03/24 20:36 Lorazepam 0.5 Mg Tab PO 09/02/24 20:59 0.25 mg HS STEPHENIE Administration Melatonin 3 mg 08/02/24 19:39 08/03/24 20:35 Melatonin 3 Mg Tab PO 09/01/24 19:38 3 mg HS PRN Administration Sleep Nystatin 5 ml 08/03/24 13:40 08/04/24 14:28 Nystatin Susp 500,000 U/5 Ml Udc PO 08/13/24 13:39 5 ml QID STEPHENIE Administration Ondansetron HCl 4 mg 07/30/24 17:17 08/04/24 00:55 Ondansetron Inj 2 Mg/Ml 2 Ml Vial IV 08/29/24 17:16 4 mg Q6H PRN Administration Nausea Pantoprazole Sodium 40 mg 08/01/24 17:30 08/04/24 08:30 Pantoprazole 40 Mg Tab PO 08/31/24 17:29 40 mg QAM STEPHENIE Administration
[2024-08-04] MEDS: DOCUSATE SODIUM/SENNA 50/8.6MG TAB PO SCH (17:01)
--- NOTE | 2024-08-04 17:46 | Hospitalist Progress Note ---
Date of Service August 04, 2024 Assessment & Plan (1) Leukocytosis: Plan: 54-year-old woman with history of lung cancer on long-term Keytruda presented with sepsis/SIRS picture, nausea and vomiting, found to be rhinovirus positive. Has had persistent leukocytosis and eosinophilia of unknown etiology. CRP moderately elevated at 5-6. Has been treated with empiric antibiotics in case of bacterial infection however blood cultures have finalized negative. 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 Keytruda reaction possible but seems unlikely since she has been on it several years. has had persistent leukocytosis despite broad-spectrum IV abx including cefepime/doxy (MRSA coverage was deferred from start of admission - she has no indwelling port/catheter, no hardware, no skin issues/cellulitis, and MRSA [employer]UC[employer] swab was negative) no bacterial source thus far found despite extensive work-up to date including g[facility]-CT (Chest/abd/pelvis), multiple CXRs, u/a, urine cx, blood cx's, lyme/anaplasmosis screens, etc. does have cephalic vein thrombus b/l but no evidence of septic thrombophlebitis clinically on exam LE dopplers neg for DVT blood cx's negative cortisol level wnl ua on 07/29 and 07/30 not suggestive of UTI, and urine cx from 07/29 negative procalcitonin x 2 scantly elevated - significance uncertain -plan to stop IV antibiotics tomorrow, blood cultures finalizing negative -cont doxy until anaplasmosis results -await bone marrow biopsy results -follow up strongyloides (inhouse) and schistosoma (send out) serology -other labs per ID: B d glucan/ fungitel, crypto ag, urine histo ag (2) Eosinophilia: Plan: first seen on 07/13/24 CBC also her eosinophils were high on 07/29 and then slowly decreased next few days but now trending up again no evidence of allergic rxn, no history of allergy/asthma/eczema no parasitic infections or symptoms of such - serology pending as above peripheral smear unrevealing BMBx pending (3) Sepsis: Plan: presumed, on admission - see above (4) Viral upper respiratory illness: Plan: Entero-/rhinovirus (+) on 07/29 Droplet isolation precautions Supportive care (5) BRIGIDO (acute kidney injury): Plan: presenting Cr 1.3, resolving 0.9 today -monitor BMP (6) Lung cancer, primary, with metastasis from lung to other site: Plan: On Keytruda [id number] Follows with Dr. Le, [facility] garcia-CT this admission without signs of worsening metastatic disease (7) Nausea & vomiting: Plan: likely 2nd to enterovirus/rhinovirus added a daily PPI -resolving (8) Thrombosis of right cephalic vein: Plan: this explains, at least in part, her right arm/hand swelling it is a fairly long segment of thrombosis, she is symptomatic, and the proximal portion of the clot is high up in the arm in light of her stage 4 lung ca she is at risk of extension of this clot left arm doppler also with cephalic vein clot obtained dopplers of b/l legs due to swelling -- negative for DVT in light of the new onset edema obtained echo - EF hyperdynamic; BNP wnl initially had patient on Eliquis low-dose for the cephalic vein thrombus Dr Le advised treating with heparin while in hospital. Starting enoxaparin tonight. (9) Thrombosis of left cephalic vein: Plan: as above (10) Morbid obesity with BMI of 40.0-44.9, adult: Plan: BMI 40.9 (11) Tachycardia: Plan: was thought 2nd to sepsis although no bacterial source found would be odd for rhinovirus/viral sepsis to cause the tachycardia TSH wnl not anemic no significant pain or anxiety to explain the tachycardia no PEs on recent chest CTA echo with hyperdynamic LV function (c/w her tachycardia) cont to monitor (12) Hyponatremia: Plan: 133 -->130. Seems mainly related to volume shifts. Had IV lasix this we with resultant hypotension -continue to monitor for now AM BMP (13) Edema: Plan: likely combination of cephalic vein thrombi (arms), hypoalbuminemia (alb 2.6) causing 3rd spacing, and previous copious IV fluids reports she was eating very well until onset of acute illness repeat u/a with 1+ proteinuria Plan updated at bedside today DVT Proph - cont enoxaparin Admission and Anticipated Discharge Date Admission Date: July 30, 2024 Subjective starting to feel a little better today sinus tachy overnight on monitor feels constipated nausea resolved and eating much better now Physical Exam 2 Physical Exam: PHYSICAL EXAMINATION Last 24h vital signs reviewed, see documentation in flowsheet General: comfortable appearing, no distress HEENT: Normocephalic, atraumatic, pupils round and equal, sclerae anicteric, no conjunctival injection, moist mucus membranes Lungs: Normal respiratory effort. Clear to auscultation bilaterally. No RRW Heart: Regular rate and rhythm, no murmurs. No JVD Abdomen: Soft, nontender, nondistended. Bowel sounds present. Extremities: Warm, dry, well-perfused. No extremity edema. Neuro: Alert and oriented x 4, face symmetric, moves 4 extremities well Psych: Normal affect and behavior Results & Data Results & Data Vital Signs (Past 12 Hours) Vital Signs Temp Pulse Resp BP BP Pulse Ox O2 Del Method 08/04/24 15:03 97.7 F 84 16 96/60 L 91 Room Air 08/04/24 13:55 97.7 F 96 H 19 104/66 94 Room Air 08/04/24 13:20 97.5 F L 97 H 16 94/59 L 95 Room Air 08/04/24 13:05 94/63 L 08/04/24 11:04 97.5 F L 97 H 16 103/64 94 Room Air 08/04/24 07:05 98.1 F 104 H 18 110/61 94 Room Air Laboratory Results 08/04/24 05:35 08/04/24 05:35 PG Care Time/CCT Total # of Minutes Spent Total Time Spent with Patient: Total time spent is greater than 50% in coordination of care (as documented) at patient's floor/unit and/or counseling patient: Coding Level of Care Code 96589 SUB INP/OBS CARE 3/50MIN Diagnoses Leukocytosis D72.829 Eosinophilia D72.10 Sepsis A41.9 Viral upper respiratory illness J06.9 BRIGIDO (acute kidney injury) N17.9 Lung cancer, primary, with metastasis from lung to other site C34.90 Nausea & vomiting R11.2 Thrombosis of right cephalic vein I82.611 Thrombosis of left cephalic vein I82.612 Morbid obesity with BMI of 40.0-44.9, adult E66.01; Z68.41 Tachycardia R00.0 Hyponatremia E87.1 Edema R60.9
[2024-08-04] MEDS: ENOXAPARIN INJ 30 MG/0.3 ML SYR SQ SCH (20:39)
[2024-08-05] MEDS: LORazepam 1 MG TAB PO STA (07:44)
[2024-08-05 09:38] LABS: Basophils # (auto) 0.13 K/uL (0.00-0.20); Basophils % (auto) 0.8 %; Eosinophils # (auto) 1.53 K/uL (0.00-0.50); Eosinophils % (auto) 8.8 %; Hematocrit (blood only) 37.9 % (37.0-47.0); Hemoglobin 12.9 g/dl (12.0-16.0); Immature Granulocytes # (auto) 0.49 K/uL (0.01-0.20); Immature Granulocytes % (auto) 2.8 %; Lymphocytes # (auto) 2.37 K/uL (1.20-3.40); Lymphocytes % (auto) 13.7 %; Mean Corpuscular Hemoglobin 29.5 pg (25.0-34.0); Mean Corpuscular Volume 86.5 fL (80.0-100.0); Mean Platelet Volume 10.7 fL (9.4-12.4); Monocytes # (auto) 1.08 K/uL (0.11-0.59); Monocytes % (auto) 6.2 %; Neutrophils # (auto) 11.72 K/uL (1.40-6.50); Neutrophils % (auto) 67.7 %; Nucleated RBC # (auto) 0.02 K/uL (0.00-0.12); Nucleated RBC % (auto) 0.1 %; Platelet Count 364 K/uL (130-400); RDW Coefficient of Variation 14.6 % (11.5-14.5); RDW Standard Deviation 45.4 fL (36.4-46.3); Red Blood Count 4.38 M/uL (4.20-5.40); White Blood Count 17.32 K/ul (4.8-10.8)
[2024-08-05 09:47] LABS: Calcium 8.9 mg/dl (8.6-10.3); Potassium 4.3 mmol/L (3.5-5.1)
[2024-08-05 09:53] LABS: BUN Creatinine Ratio 36.6 (10-20); Creatinine Clr Calc Pharmacy 83.7 ml/min
[2024-08-05 10:51] VITALS: PULSE 98; RESP 19; TEMP 98.8; O2SAT 93
[2024-08-05 11:04] VITALS: BP 98/63
--- NOTE | 2024-08-05 17:10 | Discharge Summary ---
Discharge Summary Date of Service August 05, 2024 Principal Dx & Hospital Course #1 = Principal Diagnosis (1) Leukocytosis: 54-year-old woman with history of lung cancer on long-term Keytruda presented with sepsis/SIRS picture, nausea and vomiting, found to be rhinovirus positive. Has had persistent leukocytosis and eosinophilia of unknown etiology. CRP moderately elevated at 5-6. Was treated with empiric antibiotics in case of bacterial infection however blood cultures have finalized negative. Infectious disease and gas leak inspector helper consulted. Bone marrow biopsy was obtained 08/04. Keytruda reaction possible but seems unlikely since she has been on it several years. has had persistent leukocytosis despite broad-spectrum IV abx including cefepime/doxy (MRSA coverage was deferred from start of admission - she has no indwelling port/catheter, no hardware, no skin issues/cellulitis, and MRSA HEALTH PLAN ADVISOR swab was negative) no bacterial source thus far found despite extensive work-up to date including garcia-CT (Chest/abd/pelvis), multiple CXRs, u/a, urine cx, blood cx's, lyme/anaplasmosis screens, etc. does have cephalic vein thrombus b/l but no evidence of septic thrombophlebitis clinically on exam LE dopplers neg for DVT blood cx's negative cortisol level wnl ua on 07/29 and 07/30 not suggestive of UTI, and urine cx from 07/29 negative procalcitonin x 2 scantly elevated - significance uncertain Stopped antibiotics 08/05, blood cultures finalized negative. Clinically improved, afebrile, tachycardia improved, nausea resolved and eating/drinking well at this point. Unclear what the underlying cause of her presentation was and several tests are still pending, however, safe for home discharge. Discussed with Dr. Le who can follow up her pending bone marrow biopsy and repeat CBC - we are asking her office to schedule ideally next week. Discussed with ID- okay to watch off antibiotics. Anaplasmosis DNA still pending but received 10 days of doxycycline which is adequate treatment for this and ok to stop. Discussed return precautions with Alva and her at bedside. Pathology from bone marrow biopsy - pending Labs pending from ID: -follow up strongyloides (inhouse) and schistosoma (send out) serology -other labs per ID: B d glucan/ fungitel, crypto ag, urine histo ag (2) Eosinophilia: first seen on 07/13/24 CBC eos have been up and down, currently trending down no evidence of allergic rxn, no history of allergy/asthma/eczema no known parasitic infections or symptoms of such - serology pending as above peripheral smear unrevealing BMBx pending (3) Sepsis: presumed, on admission - see above (4) Viral upper respiratory illness: Entero-/rhinovirus (+) on 07/29. Doesn't seem to explain her presentation. This was the only infection identified. Supportive care (5) BRIGIDO (acute kidney injury): presenting Cr 1.3, resolved to 0.9 (6) Lung cancer, primary, with metastasis from lung to other site: On Keytruda [id number] Follows with Dr. Le, [facility] garcia-CT this admission without signs of worsening metastatic disease (7) Nausea & vomiting: likely 2nd to enterovirus/rhinovirus -resolved (8) Thrombosis of right cephalic vein: found to have bilateral UE cephalic vein thrombosis on the right is a fairly long segment of thrombosis, she is symptomatic, and the proximal portion of the clot is high up in the arm. at risk of extension because of her lung cancer obtained dopplers of b/l legs due to swelling -- negative for DVT echo - EF hyperdynamic; BNP wnl treating with prophylaxis dose apixaban (9) Thrombosis of left cephalic vein: as above (10) Morbid obesity with BMI of 40.0-44.9, adult: BMI 40.9 (11) Tachycardia: was thought 2nd to sepsis although no bacterial source found TSH wnl not anemic no significant pain or anxiety to explain the tachycardia no PEs on recent chest CTA echo with hyperdynamic LV function (c/w her tachycardia) remains mildly tachycardic but improved (12) Hyponatremia: 133 -->130. Seems mainly related to volume shifts. -low dose oral lasix (13) Edema: likely combination of cephalic vein thrombi (arms), hypoalbuminemia (alb 2.6) causing 3rd spacing, and previous copious IV fluids reports she was eating very well until onset of acute illness repeat u/a with 1+ proteinuria -UOP and edema seem to be improving -trial low dose oral lasix to speed resolution along Notes For Next Care Provider We lack explanation for presentation with sepsis/SIRS, persistent leukocytosis and eosinophilia. Cultures and garcia-CT unrevealing. Completed 10d of doxycycline and had broad spectrum IV abx in hospital. Improved, though labs still abnormal rec CBC with diff and BMP on follow up Pathology from bone marrow biopsy - pending. Arranged onc follow up with Dr. Le Labs pending from ID: -follow up strongyloides (inhouse) and schistosoma (send out) serology -other labs per ID: B d glucan/ fungitel, crypto ag, urine histo ag -I will follow these and call if abnormal Medication Changes From Visit lasix 20 mg with 10 meq potassium PRN edema apixaban 2.5 bid for bilateral UE superficial venous thrombosis - anticipate short course of treatment, consider extension depending on clinical course and risk of recurrence Admission HPI Per Admitting Provider Alva is a pleasant 54-year-old female with PMH of metastatic lung cancer (on Keytruda) and kidney stones. She originally presented to the ED on 07/29 for URI symptoms/fever x 8 days. Her symptoms started gradually on Tuesday 07/17, and included sore throat, low-grade fever, cough and congestion. Her fever then got worse over the weekend, and started getting up to 101.3 F. She went to see her PCP on Friday 07/27, and was prescribed doxycycline. However, shortly after starting the Doxy, she developed GI discomfort, fatigue, nausea, and vomiting. She also reports that she had diarrhea that started one day prior to starting doxycycline. Patient went to the emergency department on 07/29 and tested positive for entero-/rhinovirus on 07/29. She was sent home, but returned to the ED on 07/30. Patient is currently undergoing cancer treatment (Keytruda every 6 weeks; last on July 14) for her metastatic lung cancer. Initially, she had concern for her lungs as she often has a lung infection secondary to their cancer. Patient did not take her regular morning medicine today as she was unable to keep anything down. She did take Zofran x 2, which would help with her nausea for short period of time. No recent change in medications. She has been taking Tylenol at home for her fever. Her diarrhea has been loose stool but reports that it is formed. No blood in her stool. No sick contacts to her knowledge, but she does note her niece was coughing just prior to her i nitial sickness. Additionally, she notes vomiting can be induced by pressing on her stomach. Patient denies smoking, tobacco use, recent alcohol use. Patient is mildly tachycardic at 111 bpm at time of admission; vitals otherwise stable. ED course: Cefepime 2000 mg IV NSS 1000 mL IV x 2 Zofran 4 mg IV Metoclopramide 5 mg IV Magnesium sulfate 1 g IV ROS: Patient endorses fever (worse at night), chills, night-sweats, fatigue (feels like she is in "slow motion" at times), body aches, M[place], abdominal cramping, N/V/D, and decreased urinary frequency. Patient denies dizziness, lightheadedness, syncope, chest pain, chest palpitations, pleuritic CP, SOB, cough, hematemesis, dysuria, burning with urination, or blood in the urine/stool. Discharge Exam PHYSICAL EXAMINATION Last 24h vital signs reviewed, see documentation in flowsheet General: comfortable appearing, no distress HEENT: Normocephalic, atraumatic, pupils round and equal, sclerae anicteric, no conjunctival injection, moist mucus membranes Lungs: Normal respiratory effort. Clear to auscultation bilaterally. No RRW Heart: Regular rate and rhythm, no murmurs. No JVD Abdomen: Soft, nontender, nondistended. Bowel sounds present. Extremities: Warm, dry, well-perfused. anasarca x 4 ext Neuro: Alert and oriented x 4, face symmetric, moves 4 extremities well Psych: Normal affect and behavior Discharge Plan Discharge Items Patient Disposition: Home - Self-Care Reason For Visit: SEPSIS, N/V Discharge Diagnosis: Rhinovirus, possible sepsis no other infection identified, eosinophilia Activity: As commented below Non-emergency contact: Primary Care Provider and Oncologist Call non-emergency contact if: you have any medication questions, your symptoms worsen and you have a fever Follow-up/Referrals: Summer Le MD [Family Provider] - Eva Latif DO [Primary Care Provider] - 08/10/24 12:45 pm (Hospital follow up scheduled August 10 at 12:[address] Oviedo) Diet: Carb Consistent or DM2 Addtl Attending Provider Instructions: We treated you for possible sepsis (infection), but no infection was identified besides rhinovirus (a common cold virus) on extensive testing. There are other possible causes You completed 10 days of doxycycline - Lyme was negative, anaplasmosis test is pending but 10 days should be enough to treat anaplasmosis At this point, infectious disease specialist recommends watching you off of antibiotics We found you had elevated white blood count and elevated eosinophil count that did not improve with antibiotics Bone marrow biopsy was done to evaluate this -results are pending -there are some other lab tests pending to check for signs of fungal or parasitic infection, which seem unlikely - these are also pending - I will call you if any are abnormal Follow up with Dr. Le - ideally next week for blood counts and bone marrow results Return to the ER if you are getting worse - including fevers, lightheadedness, confusion/altered mental status, recurrent nausea and vomiting I prescribed very low dose diuretic (furosemide AKA lasix) to help the swelling. Its a good idea to weigh yourself every day and keep track, ideally water weight and edema should slowly be improving For the blood clots in your arm veins we prescribed low dose Eliquis (apixaban). follow up with Dr. Le The apixaban is at the lowest dose (half dose, or prophylaxis dose) to help the blood clots in your arms resolve and prevent new ones Nevertheless, blood thinners carry the risk of bleeding. Seek medical attention if you have black/tarry or bloody stool There is also a very small but real risk of intracranial hemorrhage - related to head trauma or bleeding-type stroke, that can be life threatening. Call 911 if you have altered mental status or symptoms of stroke (weakness or numbness of face/arm/leg, trouble speaking or understanding, trouble with walking/balance For constipation, drink plenty of water and eat more fiber. Miralax one capful daily or twice a day and Senna 1-2 tabs a day. Miralax and senna are safe to take shelter. Dulcolax (bisacodyl) 5-10 mg or suppository as needed for severe constipation not responding to miralax and senna. These medications are available over the counter It was a pleasure taking care of you in the hospital, Xenia Gutierrez MD Pending Studies at Discharge: Yes Stand-Alone Forms: [facility], Smoking Cessation Medications and DC Order Prescriptions: New furosemide 20 mg tablet 20 mg PO DAILY PRN (Reason: edema) Qty: 30 0RF potassium chloride 10 mEq tablet extended release 10 meq PO DAILY PRN (Reason: take with furosemide) Qty: 30 0RF apixaban 2.5 mg tablet 2.5 mg PO BID Qty: 60 0RF Continued ascorbic acid (vitamin C) 250 mg tablet 250 mg PO DAILY Macular Health Formula 5-1-7.5 mg capsule 1 cap PO DAILY zinc gluconate 30 mg tablet 30 mg PO DAILY ergocalciferol (vitamin D2) 1,250 mcg (50,000 unit) capsule 1,250 mcg PO .weekly Qty: 14 0RF Patient Comments: Has been out of, sees kidney doctor at the end of month. Rx Instructions: Saturday pembrolizumab 50 mg Recon Soln 50 mg IV .q6wks epinephrine [EpiPen 2-Nando] 0.3 mg/0.3 mL auto-injector 0.3 mg IM Q3H PRN (Reason: anaphylaxis) Qty: 2 0RF Patient Comments: Hasnt had to use yet. ondansetron 4 mg tablet,disintegrating 4 mg PO Q6H PRN (Reason: nausea and vomiting) Qty: 14 0RF diphenhydramine HCl [Unisom SleepGels] 50 mg Capsule 50 mg PO HS oxycodone 5 mg Capsule 5 mg PO Q8H PRN (Reason: Pain) Patient Comments: Per Pt she hasnt used in roughly 6 months acetaminophen 500 mg Capsule 1,000 mg PO Q6H PRN (Reason: Pain) benzonatate 100 mg capsule 100 mg PO TID PRN (Reason: cough) Qty: 15 0RF albuterol sulfate 90 mcg/actuation HFA aerosol inhaler 2 puffs INH 6XD PRN (Reason: shortness of breath or wheezing) Qty: 6.7 0RF Asmanex HFA 100 mcg/actuation HFA aerosol inhaler 2 puff INHALATION BID PRN (Reason: sob) Pulmicort Flexhaler 90 mcg/actuation aerosol powdr breath activated 2 inh inhalation BID PRN (Reason: sob) ondansetron 4 mg tablet,disintegrating 4 mg PO Q6H PRN (Reason: nausea and vomiting) Qty: 20 0RF Discontinued doxycycline hyclate 100 mg tablet 100 mg PO BID Discharge Orders: Discharge Order (Routine); Ordered 11/27/24 Ordered By: Xenia Boss/Other Patient Handouts: Diabetes and Heart Disease Admission Data Admit Date/Time: 07/30/24 14:30 Attending Provider: Xenia Gutierrez Admit Provider: Tam Jones Primary Care Provider: Eva Latif Other Providers: Tam Jones; Amelia Dawson; Annika Jiménez; Theresa Allen; Jess Dean; Xenia Munoz; Renea Garcia; Summer Le Other Interventions: Discharge Summary Assessment (RN) Last Done: 08/05/24 11:03 Hospital Stay Data Consultations 07/30/24 13:48 ED Decision to Admit Stat 08/03/24 08:43 Consult Infectious Diseases Routine 08/03/24 09:15 Consult Hematology Routine Diagnostic Imagining Performed 07/30/24 11:56 CT abd pelvis IV con only Stat CT angio chest PE protocol Stat 07/31/24 11:25 US venous doppler UE RT Urgent 08/01/24 14:22 US venous doppler LE BI Routine 08/02/24 14:19 US venous doppler UE LT Stat 08/04/24 12:00 IR bone marrow bx & asp Routine Pending Results Patient Have Any Pending Studies at Discharge: Yes Discharge Instructions Given to Patient (Per Discharging Provider) We treated you for possible sepsis (infection), but no infection was identified besides rhinovirus (a common cold virus) on extensive testing. There are other possible causes You completed 10 days of doxycycline - Lyme was negative, anaplasmosis test is pending but 10 days should be enough to treat anaplasmosis At this point, infectious disease specialist recommends watching you off of antibiotics We found you had elevated white blood count and elevated eosinophil count that did not improve with antibiotics Bone marrow biopsy was done to evaluate this -results are pending -there are some other lab tests pending to check for signs of fungal or parasitic infection, which seem unlikely - these are also pending - I will call you if any are abnormal Follow up with Dr. Le - ideally next week for blood counts and bone marrow results Return to the ER if you are getting worse - including fevers, lightheadedness, confusion/altered mental status, recurrent nausea and vomiting I prescribed very low dose diuretic (furosemide AKA lasix) to help the swelling. Its a good idea to weigh yourself every day and keep track, ideally water weight and edema should slowly be improving For the blood clots in your arm veins we prescribed low dose Eliquis (apixaban). follow up with Dr. Le The apixaban is at the lowest dose (half dose, or prophylaxis dose) to help the blood clots in your arms resolve and prevent new ones Nevertheless, blood thinners carry the risk of bleeding. Seek medical attention if you have black/tarry or bloody stool There is also a very small but real risk of intracranial hemorrhage - related to head trauma or bleeding-type stroke, that can be life threatening. Call 911 if you have altered mental status or symptoms of stroke (weakness or numbness of face/arm/leg, trouble speaking or understanding, trouble with walking/balance For constipation, drink plenty of water and eat more fiber. Miralax one capful daily or twice a day and Senna 1-2 tabs a day. Miralax and senna are safe to take lobsterman. Dulcolax (bisacodyl) 5-10 mg or suppository as needed for severe constipation not responding to miralax and senna. These medications are available over the counter It was a pleasure taking care of you in the hospital, Xenia Gutierrez MD Total Time Total Time Spent Total Time Spent (In Minutes): I personally spent: 45 minutes today on clinical care activities including: reviewing chart notes and vital signs reviewing labs discussion with advisor consultant(s) examining and counseling the patient counseling the patient's family writing orders writing prescriptions, discharge instructions documentation Coding Level of Care Code 76265 INP/OBS DISCH >30 MIN Diagnoses Leukocytosis D72.829 Eosinophilia D72.10 Sepsis A41.9 Viral upper respiratory illness J06.9 BRIGIDO (acute kidney injury) N17.9 Lung cancer, primary, with metastasis from lung to other site C34.90 Nausea & vomiting R11.2 Thrombosis of right cephalic vein I82.611 Thrombosis of left cephalic vein I82.612 Morbid obesity with BMI of 40.0-44.9, adult E66.01; Z68.41 Tachycardia R00.0 Hyponatremia E87.1 Edema R60.9
[2024-08-07 17:42] LABS: Cryptococcal Antigen Not Detected (Not Detected); Source Serum
[2024-08-07 21:17] LABS: Fungitell (1-3)-B-D-Glucan <31 pg/mL
[2024-08-14 09:09] LABS: NEO JAK2 Mut Exon 12-14 Molec See Separate Report; NEO MPL Exon10 W1515,S505 mut See Separate Report
== END 2024-08-05 11:50 | disposition home or self-care (01) | DRG 872 ==
LOC: ED 11:25 → 2S 14:30 → SUATTDRO 14:30 → 2S 17:06